=== PATIENT | female | born 1945 | race Caucasian/White ===

== ENCOUNTER 2019-06-05 12:04 | Outpatient (CLI) | payer MEDICARE, BC, SELFPAY ==
--- NOTE | 2019-06-10 23:40 | WPDPFTINT ---
PFT Interpretation PFT Interpretation: DOS:06/05/2019 REQUESTING: Dr. Plata REASON FOR TESTING: shortness of breath, elevated diaphragm PULMONARY FUNCTION TESTS Spirometry: FEV1 75%, 1.23 L. FVC 70% mildly decreased. FEV1% normal 75%. decreased FEF 25-75%, 45% predicted with 41% increase with bronchodilator. Lung volumes: TLC normal 100%. Slow vital capacity is 81%, which is normal and higher than the forced vital capacity 70%. This indicates dynamic air trapping. Residual volume mildly increased 129% consistent with air trapping. Airway resistance mildly increased 160%. Diffusion: DLCO is 85% normal. Flow volume loop: Normal IMPRESSION: Mild obstructive ventilatory impairment with dynamic air trapping, severe small airways obstruction with good response to bronchodilator, mild air trapping, mild increase in airway resistance. Ashley Plata MD
--- NOTE | 2019-06-10 23:47 | WPDSIXMINUTE ---
Six Minute Walk Six Minute Walk: DATE OF SERVICE: 06/05/2019 REQUESTING: Dr. Plata REASON FOR TESTING: dyspnea on exertion, elevated diaphragm SIX MINUTE WALK this test was conducted per ATS guidelines. Initial saturation 94% pulse 76. The patient walked for 6 minutes without stopping using her walker. She desaturated to 86% for 30 seconds. She has saturation documented 86% to 88% for less than 2 minutes. While she was being tested, the wrist monitor did not show sustained hypoxemia, so no supplemental oxygen was started. There was a 20 second episode during which time the monitor did not record the saturation. distance walked was 1150 feet, 350 meters. IMPRESSION: Mild desaturation to 86% for 30 seconds, with desaturation 88% and below for less than 90 seconds. No supplemental oxygen is indicated at this time as anatoly hypoxemia was not sustained for 2 minutes. Distance walked is adequate for age. Ashley Plata MD
== END 2019-06-05 12:05 | disposition home or self-care (01) ==
PROVIDERS: PCP Internal Medicine; Visit Provider Internal Medicine Critical Care Medicine
DX: J98.6 Disorders of diaphragm (principal); R06.02 Shortness of breath
CPT/HCPCS: 94060; 94375; 94618; 94729

== ENCOUNTER 2019-06-15 09:54 | Outpatient (CLI) | payer MEDICARE, BC, SELFPAY ==
--- NOTE | ~2019-06-15 | US_ITS ---
EXAMINATION: 1. US FNA additional 2. US FNA w image guidance DATE: 06/15/2019 11:33 INDICATION: Multinodular goiter. TECHNIQUE: The procedure and its benefits, risks, and benefits were discussed with the patient. Risks specifical ly discussed included bleeding. The patient verbalized understanding of the risks and agreed to proce ed. The neck was prepped and draped in the usual sterile manner. 1% lidocaine was used for local ane sthesia. Five passes were made with a 25G needle into the lesion in superior right thyroid lobe. Ap propriate needle location was documented with continuous sonographic guidance. 5 passes were made with a 25-gauge needle into the lesion in inferior right thyroid lobe. Appropriate needle location was documented with continuous sonographic guidance. There were no immediate complic ations. The patient understood to call the ordering physician for results after a week and a half and verbalized that understanding. FINDINGS: Grayscale ultrasound images demonstrate needles advanced into a 1.8 cm nodule in superior right thyro id lobe for biopsy. Grayscale ultrasound images demonstrate needles advanced into a 1.7 cm nodule in inferior right thyroid lobe for biopsy. IMPRESSION: 1. Ultrasound-guided fine needle aspiration of a nodule in superior right thyroid lobe. 2. Ultrasound-guided fine-needle aspiration of a nodule in inferior right thyroid lobe. Reviewed, dictated and finalized at location A. WORKER IMPRESSION: 1. Ultrasound-guided fine needle aspiration of a nodule in superior right thyr oid lobe. 2. Ultrasound-guided fine-needle aspiration of a nodule in inferior right thyro id lobe.
== END 2019-06-15 09:55 | disposition home or self-care (01) ==
LOC: ANHIMG 09:58
PROVIDERS: PCP Internal Medicine; Visit Provider Internal Medicine
DX: E04.2 Nontoxic multinodular goiter (principal)
CPT/HCPCS: 10005; 10006; 88108; 88173; 88305

== ENCOUNTER 2020-02-29 09:51 | Outpatient (CLI) | payer MEDICARE, BC, SELFPAY ==
--- NOTE | ~2020-02-29 | DEXA_ITS ---
Bone Density Report Name: Beena Ortiz Age: 74 Sex: Female Ethnicity: White Date of : 1945 Indication: osteopenia; height loss; prior fracture; asthma or emphysema; hysterectomy; Referring Provider: Ugo, Allie Dominguez Study: Bone densitometry was performed. Exam Date: February 29, 2020 Accession number: [id number] There is hypertrophic degenerative change of the lumbar spine, which results in higher than expected spine bone mineral density measurements. These spine BMD and T score and Z score measurements are not reflective of the patient's true general bone mineral density. Bone Density: Region BMD T-score Z-score Classification AP Spine (L3, L4) 1.003 -0.9 1.5 Normal Femoral Neck (Left) 0.696 -1.4 0.6 Osteopenia Total Hip (Left) 0.797 -1.2 0.5 Osteopenia Total Hip Bilateral Avg 0.799 -1.2 0.5 Osteopenia Femoral Neck (Right) 0.629 -2.0 0.0 Osteopenia Total Hip (Right) 0.799 -1.2 0.5 Osteopenia World Health Organization criteria for BMD impression classify patients as: Normal (T-score at or above -1.0), Osteopenia (T-score between -1.0 and -2.5), or Osteoporosis (T-score at or below -2.5). 10-year Fracture Risk(1): Major Osteoporotic Fracture 17% Hip Fracture 3.4% Reported Risk Factors: [place] (), Neck BMD=0.629, BMI=34.6, previous fracture (1) FRAX(R) Version 3.08. Fracture probability calculated for an untreated patient. Fracture probability may be lower if the patient has received treatment. Previous Exams: Region Exam Age BMD T-score BMD Change BMD Change Date g/cm2 vs Baseline vs Previous Total Hip(Left) 02/29/2020 74 0.797 -1.2 -0.090(-10.1%) -0.005(-0.6%) 01/21/2016 70 0.802 -1.1 -0.085(-9.6%)# -0.085(-9.6%)# 08/10/2012 66 0.887 -0.5 Total Hip(Right) 02/29/2020 74 0.799 -1.2 -0.103(-11.5%) 0.015(1.9%) 01/21/2016 70 0.784 -1.3 -0.118(-13.1%) -0.118(-13.1%) 08/10/2012 66 0.902 -0.3 *Denotes significance at 95% confidence level, LSC for Total Hip = 0.027 g/cm2 Clinical Information Provided by Patient: Has had a low trauma fracture Has used the following medications: Calcium Has the following medical conditions: Asthma or Emphysema, Hysterectomy Patient maximum height was 62.5 Menopause Age: 35 No regular weight bearing exercise Drinks caffeinated beverages Onset of menses at age 13 Number of children 0 Impression: The patient has low bone mass, based on the Right Femoral Neck T-score. The patient has an estimated te
--- NOTE | ~2020-02-29 | MM_ITS ---
EXAMINATION: MM screening edmond BI w neal HISTORY: Screening mammogram TECHNIQUE: Craniocaudal and mediolateral oblique 3-D tomosynthesis images were obtained and synthetic 2-D images were generated. CAD analysis was submitted and interpreted. COMPARISON: 08/10/2012, 03/02/2011 bilateral digital screening mammogram examinations BREAST PARENCHYMAL COMPOSITION: There are scattered areas of fibroglandular density. FINDINGS: Scattered bilateral benign calcifications are again noted. There is no evidence of suspicio us mass, calcification, or architectural distortion to suggest malignancy in either breast. There has been no suspicious interval change. IMPRESSION: 1. No mammographic evidence of malignancy. 2. Recommend routine screening mammography in one year. BI-RADS Category 2: Benign finding(s). Reviewed, dictated and finalized at location A.
== END 2020-02-29 09:52 | disposition home or self-care (01) ==
LOC: ANHIMG 09:59
PROVIDERS: PCP Internal Medicine; Visit Provider Internal Medicine
DX: Z12.31 Encounter for screening mammogram for malignant neoplasm of breast (principal); Z78.0 Asymptomatic menopausal state; M85.852 Other specified disorders of bone density and structure, left thigh; M85.851 Other specified disorders of bone density and structure, right thigh
CPT/HCPCS: 77063; 77067; 77080

== ENCOUNTER 2020-08-05 15:54 | Outpatient (CLI) | payer MEDICARE, BC, SELFPAY ==
--- NOTE | ~2020-08-05 | US_ITS ---
EXAMINATION: US thyroid DATE: 08/05/2020 16:34 INDICATION: Multinodular goiter. TECHNIQUE: Multiple ultrasound images of the thyroid were obtained. COMPARISON: Ultrasound 05/30/2019 FINDINGS: The right thyroid lobe measures 3.7 x 2.0 x 2.1 cm. The left thyroid lobe measures 3.9 x 1.2 x 1.2 c m. In the right thyroid lobe, there is a 16 mm solid, hypoechoic, tcegn-atqg-gqtp nodule with smooth margin without echogenic foci (TI-RADS TR4), stable from 06/15/19 when biopsy was benign. In the right thyroid lobe, there is a 19 mm solid, hypoechoic, ugysuw-ghbn-nyax nodule with smooth margin without echogenic foci (TR5), stable from 06/15/19 when biopsy was benign. There are multiple subcentimeter no dules in the thyroid. IMPRESSION: 1. Stable multinodular goiter, likely not clinically significant. Reviewed, dictated and finalized at location A.
== END 2020-08-05 15:55 | disposition home or self-care (01) ==
PROVIDERS: PCP Internal Medicine; Visit Provider Internal Medicine
DX: E04.2 Nontoxic multinodular goiter (principal)
CPT/HCPCS: 76536

== ENCOUNTER → 2020-08-18 02:41 | Outpatient (CLI) | payer MEDICARE, BC, SELFPAY ==
[2020-08-18 19:42] LABS: SARS-CoV-2 RNA PCR Negative
== END ==
PROVIDERS: PCP Internal Medicine; Visit Provider Internal Medicine Gastroenterology
DX: Z01.812 Encounter for preprocedural laboratory examination (principal); Z20.822 Contact with and (suspected) exposure to COVID-19
CPT/HCPCS: C9803; U0003; U0005

== ENCOUNTER 2020-08-21 01:17 | Day surgery (SDC) | payer MEDICARE, BC, SELFPAY ==
[2020-08-11 09:15] VITALS: BMI 35.1
[2020-08-21] MEDS: LACTATED RINGERS 1,000 ML 150 ML IV CONT (07:14)
[2020-08-21 07:25] VITALS: BP 143/75; PULSE 84; RESP 20; TEMP 36.4; O2SAT 98
[2020-08-21 07:25] LABS: Glucose Point of Care 103 (65-105)
--- NOTE | 2020-08-21 07:48 | PM.HPGS ---
History of Present Illness History of Present Illness Consent: Risks, benefits, and alternatives have been discussed and questions answered. Patient agrees to proceed with procedure. Chief complaint: esophageal stricture Narrative: Beena Ortiz is a 75 year old female Who is having dysphagia. Sometimes she will regurgitate pills that she has swallowed or liquid that she has drank. Food seems to go down but occasion she has and sedation that it is stuck in her lower chest. She had a hiatal hernia repair 3 years ago. Review of Systems Review of Systems: All systems reviewed & are unremarkable except as noted in HPI and below PMFSH Past Medical History Medical History (Updated 08/21/20 @ 07:49 by Keshawn Luna MD) Diabetes High cholesterol HTN (hypertension) Surgical History Surgical History H/O hernia repair H/O: hysterectomy History of laparoscopic appendectomy Family History Family History Mother Family history of coronary artery disease Family history of lung disease Sibling Family history of cardiovascular disease Family history of chronic obstructive pulmonary disease Family history of congestive heart failure Alcoholism Hypertension Depression Heart disease Father Family history of chronic obstructive pulmonary disease Social History Social History Smoking packs per day: 1 Smoking cigarettes per day: 20.0 Years smoked: 15 Smoking pack-years: 15.00 Smoking status: Former smoker Tobacco type: cigarettes Second hand tobacco smoke exposure: No Smoking end date: 05/09/79 Alcohol intake: current Drinks per week: 7 Alcohol use details: WINE Substance use: never Substance use type: does not use Living arrangements: with family Spiritual care concerns: No Meds Home Medications and Allergies Home Medications Medication Instructions Recorded Confirmed Type atorvastatin 20 mg tablet 20 mg PO DAILY 04/30/19 08/21/20 History carboxymethylcellulose sodium 0.5 1 drop EACH EYE BID PRN 04/30/19 08/21/20 History % eye drops cyclosporine 0.05 % eye drops in a 1 drop EACH EYE Q12H 04/30/19 08/21/20 History dropperette fluoxetine 20 mg capsule 20 mg PO DAILY 04/30/19 08/21/20 History lisinopril 5 mg tablet 5 mg PO DAILY 04/30/19 08/21/20 History metformin 500 mg tablet 500 mg PO DAILY 04/30/19 08/21/20 History albuterol sulfate 90 mcg/actuation 1 inhalation INHALATION Q4-6H PRN 02/11/20 08/21/20 Rx aerosol inhaler #8.5 gm Nature Made Iron 34 mg PO DAILY 08/11/20 08/21/20 History calcium-vitamin D3-vitamin K 2 tablet PO DAILY 08/11/20 08/21/20 History [Viactiv] cholecalciferol (vitamin D3) 1,000 unit PO DAILY 08/11/20 08/21/20 History [Vitamin D3] lifitegrast [Xiidra] 1 drp EACH EYE BID 08/11/20 08/21/20 History pantoprazole 40 mg PO DAILY 08/11/20 08/21/20 History vit C-E-zinc lr-ebac-kjd-zeax 1 cap PO BID 08/11/20 08/21/20 History [ICaps AREDS2] Allergies Allergy/AdvReac Type Severity Reaction Status Date / Time No Known Allergies Allergy Verified 08/21/20 07:11 Vital Signs Vital Signs - 24 hr 08/21/20 07:25 Temperature 36.4 C L Pulse Rate 84 Respiratory Rate 20 Blood Pressure 143/75 H Pulse Oximetry 98 Exam Const: General: alert Orientation/consciousness: patient oriented x3 Resp: Auscultation: clear to auscultation bilaterally Cardio: Rhythm: regular rhythm GI: GI Palp: Yes Soft to palpation and No Tenderness to palpation present (GI) Neuro: General: patient oriented x3 Assessment and Plan Assessment and plan (1) Dysphagia: Code(s): R13.10 - Dysphagia, unspecified Status: Acute Assessment and Plan: EGD with possible biopsy or dilatation or cautery.
--- NOTE | 2020-08-21 08:11 | WPDANESEPPF ---
Anes - Initial Pre Proc Eval Procedure: Operation Date: 08/21/20 08:30 Proposed Procedures p Esophagogastroduodenoscopy - Keshawn Luna MD Date/Time: 08/21/20 08:11 Surgeon: Keshawn Luna MD Pre Op Diagnosis: esophageal stricture Patient Data Age: 75 Gender: F Height: 5 ft Weight: 79.5 kg Last Vital Signs Temp 97.5 F L 08/21/20 07:25 Pulse 84 08/21/20 07:25 Resp 20 08/21/20 07:25 BP 143/75 H 08/21/20 07:25 Pulse Ox 98 08/21/20 07:25 Allergies Allergy/AdvReac Type Severity Reaction Status Date / Time No Known Allergies Allergy Verified 08/21/20 07:11 Home Medications Medication Instructions Recorded Confirmed Type atorvastatin 20 mg tablet 20 mg PO DAILY 04/30/19 08/21/20 History carboxymethylcellulose sodium 0.5 1 drop EACH EYE BID PRN 04/30/19 08/21/20 History % eye drops cyclosporine 0.05 % eye drops in a 1 drop EACH EYE Q12H 04/30/19 08/21/20 History dropperette fluoxetine 20 mg capsule 20 mg PO DAILY 04/30/19 08/21/20 History lisinopril 5 mg tablet 5 mg PO DAILY 04/30/19 08/21/20 History metformin 500 mg tablet 500 mg PO DAILY 04/30/19 08/21/20 History albuterol sulfate 90 mcg/actuation 1 inhalation INHALATION Q4-6H PRN 02/11/20 08/21/20 Rx aerosol inhaler #8.5 gm Nature Made Iron 34 mg PO DAILY 08/11/20 08/21/20 History calcium-vitamin D3-vitamin K 2 tablet PO DAILY 08/11/20 08/21/20 History [Viactiv] cholecalciferol (vitamin D3) 1,000 unit PO DAILY 08/11/20 08/21/20 History [Vitamin D3] lifitegrast [Xiidra] 1 drp EACH EYE BID 08/11/20 08/21/20 History pantoprazole 40 mg PO DAILY 08/11/20 08/21/20 History vit C-E-zinc oi-sshq-nhi-zeax 1 cap PO BID 08/11/20 08/21/20 History [ICaps AREDS2] Laboratory Tests 08/21/20 07:10 POC Capillary Glucose 103 mg/dl mg/dl (65-105) Patient hx anesthesia problems: none Family hx anesthesia problems: none PMFSH Past Medical History Medical History (Updated 08/21/20 @ 07:49 by Keshawn Luna MD) Diabetes High cholesterol HTN (hypertension) Surgical History Surgical History H/O hernia repair H/O: hysterectomy History of laparoscopic appendectomy Family History Family History Mother Family history of coronary artery disease Family history of lung disease Sibling Family history of cardiovascular disease Family history of chronic obstructive pulmonary disease Family history of congestive heart failure Alcoholism Hypertension Depression Heart disease Father Family history of chronic obstructive pulmonary disease Social History Social History Smoking packs per day: 1 Smoking cigarettes per day: 20.0 Years smoked: 15 Smoking pack-years: 15.00 Smoking status: Former smoker Tobacco type: cigarettes Second hand tobacco smoke exposure: No Smoking end date: 05/09/79 Alcohol intake: current Drinks per week: 7 Alcohol use details: WINE Substance use: never Substance use type: does not use Living arrangements: with family Spiritual care concerns: No Anes - Eval Final PreProcedure Day of Procedure 08/21/20 08:11 Patient weight: overweight Heart: regular rate and rhythm Lungs: clear to auscultation Airway: Mallampati scale class III Neurological: alert and oriented Last oral intake: >/= 8 hours ASA classification: III Emergent: no Anesthetic plan: proceed Anesthesia type and monitoring: general GIVS and standard monitoring Informed Consent: The patient's anesthetic plan and its attendant risks and benefits were discussed with the patient/family/POA. Questions were solicited and answers provided to the satisfaction of the patient/family/POA.
[2020-08-21 08:44] VITALS: BP 99/62; PULSE 85; RESP 19; O2SAT 99
[2020-08-21 08:54] VITALS: BP 117/69; PULSE 79; RESP 25; O2SAT 100
[2020-08-21 09:04] VITALS: BP 116/73; PULSE 77; RESP 16; O2SAT 96
== END 2020-08-21 09:15 | disposition home or self-care (01) ==
PROVIDERS: PCP Internal Medicine; Visit Provider Internal Medicine Gastroenterology
PROC: 0DJ08ZZ Inspection of Upper Intestinal Tract, Via Natural or Artificial Opening Endoscopic (ICD-10-PCS; CPT 43235; principal; 2020-08-21 08:30)
DX: K22.2 Esophageal obstruction (principal); K44.9 Diaphragmatic hernia without obstruction or gangrene; I10 Essential (primary) hypertension; E78.00 Pure hypercholesterolemia, unspecified; E11.9 Type 2 diabetes mellitus without complications; Z87.891 Personal history of nicotine dependence; Z79.84 Long term (current) use of oral hypoglycemic drugs; Z79.51 Long term (current) use of inhaled steroids
CPT/HCPCS: 43249; 82948; 88305; C1726; J2704; J7120

== ENCOUNTER 2021-04-17 19:28 | Emergency (ER) | payer MEDICARE, BC, SELFPAY ==
[2021-04-17 19:30] VITALS: BP 160/94; PULSE 83; RESP 18; TEMP 36.6; O2SAT 99
--- NOTE | 2021-04-17 21:10 | PC.NURSE ---
Charge nurse to wr to update pts on delay.
--- NOTE | 2021-04-17 21:28 | PC.NURSE ---
Pt ambulatory out of dept to awaiting family vehicle. left with steady even, unassisted gait.
== END 2021-04-18 04:51 | disposition left against medical advice (07) ==
PROVIDERS: PCP Internal Medicine
DX: R10.31 Right lower quadrant pain (principal)
CPT/HCPCS: 99199

== ENCOUNTER 2021-05-20 15:17 | Outpatient (CLI) | payer MEDICARE, BC, SELFPAY ==
--- NOTE | ~2021-05-20 | MM_ITS ---
EXAMINATION: MM screening edmond BI w neal HISTORY: Screening TECHNIQUE: Craniocaudal and mediolateral oblique 3-D tomosynthesis images were obtained and synthetic 2-D images were generated. CAD analysis was submitted and interpreted. COMPARISON: Comparison to multiple prior studies sequentially, with oldest reviewed study dated 08/2012. BREAST PARENCHYMAL COMPOSITION: There are scattered areas of fibroglandular density. FINDINGS: There is no evidence of suspicious mass, calcification, or architectural distortion to sugg est malignancy in either breast. There has been no suspicious interval change. IMPRESSION: 1. No mammographic evidence of malignancy. 2. Recommend routine screening mammography in one year. BI-RADS Category 1: Negative Reviewed, dictated and finalized at location A. PAPER INSERTER
== END 2021-05-20 15:18 | disposition home or self-care (01) ==
LOC: ANHIMG 15:20
PROVIDERS: PCP Internal Medicine; Visit Provider Internal Medicine
DX: Z12.31 Encounter for screening mammogram for malignant neoplasm of breast (principal)
CPT/HCPCS: 77063; 77067

== ENCOUNTER 2021-09-20 13:17 | Outpatient (CLI) | payer MEDICARE, BC, SELFPAY ==
--- NOTE | ~2021-09-20 | XR_ITS ---
XR knee LT 2V DATE: 09/20/2021 13:37 INDICATION: Osteoarthritis TECHNIQUE: Standing AP and lateral views COMPARISON: None FINDINGS: No fracture or dislocation or joint effusion. No periosteal reaction or bone destruction. N o radiopaque intra-articular loose body or chondral calcinosis. Joint spaces are relatively preserved . IMPRESSION: No significant abnormality Reviewed, dictated and finalized at location A. IMPRESSION: No significant abnormality
--- NOTE | ~2021-09-20 | MR_ITS ---
EXAMINATION: MR lumbar spine wo con DATE: 09/20/2021 14:13 INDICATION: lumbar spndylosis . TECHNIQUE: Magnetic resonance imaging (MRI) of the lumbar spine was performed without intravenous con trast. Sequences included sagittal T2-weighted FSE, sagittal T2-weighted FS FSE, sagittal T1-weighted FSE, and axial T2-weighted FSE. COMPARISON: None FINDINGS: The last fully formed and hydrated disc is designated L5-S1. The marrow signal is benign. 5 mm anterolisthesis of L5 on S1. Hemangioma at T12. Lumbar scoliosis. Conus terminates at L2. 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 Right parapelvic cyst. The following disc levels are specifically discussed : T10-11: 5 mm central protrusion which contacts the distal cord. There is mild facet joint osteoarthri tis. There is moderate left and mild right neural foraminal stenosis. There is mild central canal tucker nosis. T11-12: The disc does not extend beyond the endplate margin. There is mild facet joint osteoarthritis . There is no neural foraminal stenosis. There is no central canal stenosis. T12-L1: The disc does not extend beyond the endplate margin. There is mild facet joint osteoarthritis . There is no neural foraminal stenosis. There is no central canal stenosis. L1-L2: Severe diffuse bulge. There is moderate facet joint osteoarthritis. There is moderate right an d mild left neural foraminal stenosis. There is moderate central canal stenosis. L2-L3: Severe diffuse bulge There is moderate facet joint osteoarthritis. There is severe right and m oderate left neural foraminal stenosis. There is no central canal stenosis. L3-L4: Severe disc bulge. There is severe facet joint osteoarthritis. There is moderate left and sara re right neural foraminal stenosis. There is no central canal stenosis. L4-L5: Severe diffuse bulge. There is severe facet joint osteoarthritis. There is moderate bilateral neural foraminal stenosis. There is no central canal stenosis. L5-S1: Severe diffuse bulge with a left lateral predominance. There is severe facet joint osteoarthri tis. There is severe left and moderate right neural foraminal stenosis. There is no central canal tucker nosis. IMPRESSION: 1. Multilevel severe degenerative disc disease and facet arthropathy. 2. Multilevel moderate and severe neural foraminal narrowing. 3. Moderate central canal stenosis at L1-2. 4. Central T10-11 disc protrusion at contacts the distal cord. 5. Grade 1 degenerative anterolisthesis of L5 on S1. Reviewed, dictated and finalized at location K.
--- NOTE | ~2021-09-20 | XR_ITS ---
XR knee RT 2V DATE: 09/20/2021 13:37 INDICATION: Osteoarthritis TECHNIQUE: Standing AP and lateral views COMPARISON: 02/15/2019 right knee FINDINGS: No fracture or dislocation or joint effusion. No radiopaque intra-articular loose body or c hondral calcinosis. Joint spaces are relatively preserved. No periosteal reaction or bone destruction . IMPRESSION: No significant abnormality Reviewed, dictated and finalized at location A. IMPRESSION: No significant abnormality
== END 2021-09-20 13:18 | disposition home or self-care (01) ==
PROVIDERS: PCP Internal Medicine; Visit Provider Physical Medicine & Rehabilitation
DX: M47.896 Other spondylosis, lumbar region (principal); M17.9 Osteoarthritis of knee, unspecified; M51.36 Other intervertebral disc degeneration, lumbar region
CPT/HCPCS: 72148; 73560

== ENCOUNTER 2021-09-29 10:48 | Outpatient (CLI) | payer MEDICARE, BC, SELFPAY ==
--- NOTE | ~2021-09-29 | US_ITS ---
EXAMINATION: US thyroid DATE: 09/29/2021 11:44 INDICATION: Multinodular goiter. TECHNIQUE: Multiple ultrasound images of the thyroid were obtained. COMPARISON: Ultrasound 08/05/2020, 06/15/2019, 05/30/2019, 11/26/2008 FINDINGS: In the right thyroid lobe, there is a 16 mm predominantly solid, hypoechoic, halmh-tiup-cudr nodule w ith ill-defined margin without echogenic foci (TI-RADS TR4), stable from 06/15/19 when biopsy was benig n. In the right thyroid nodule lobe, there is a 16 mm mixed cystic and solid, hypoechoic, wider than tall nodule with smooth margin without echogenic foci (TR3). In the right thyroid lobe, there is a 20 mm solid, isoechoic, sjcoa-ovqd-jvmg nodule with ill-defined margin without echogenic foci (TR3). Th ariel two nodules were previously measured as a single nodule and demonstrated benign pathology at biop sy on 06/15/19. In the left thyroid lobe, there is a 12 mm solid, hypoechoic, wider than tall nodule wi th lobulated margin without echogenic foci (TR4), stable from 05/30/19. IMPRESSION: 1. Stable multinodular goiter, likely not clinically significant. Reviewed, dictated and finalized at location A.
== END 2021-09-29 10:49 | disposition home or self-care (01) ==
PROVIDERS: PCP Internal Medicine; Visit Provider Internal Medicine
DX: E04.2 Nontoxic multinodular goiter (principal)
CPT/HCPCS: 76536

== ENCOUNTER 2022-04-20 10:00 | Emergency (ER) | payer MEDICARE, BC, SELFPAY ==
[2022-04-20 10:25] VITALS: BP 130/67; PULSE 74; RESP 18; TEMP 37; O2SAT 98
--- NOTE | 2022-04-20 12:12 | ED.ANIMALBIT ---
HPI - Animal Bite General Chief Complaint: Animal Bite Stated Complaint: bit by cat 1 week ago Time Seen by Provider: 04/20/22 11:13 Source: patient Mode of arrival: ambulatory Limitations: no limitations History of Present Illness HPI narrative: This is a 76 year old female that presents to the ER after a cat bite 6 days ago. Reports there is a stray cat that roams around the neighborhood that she sees from time to time. Reports he came close to her last Tuesday and she attempted to pet him. Reports he bit her on the right hand. She was seen at urgent care and prescribed antibiotics and given a tetanus vaccine. Reports she was concerned that maybe she should have gotten a rabies vaccine which prompted her to be seen again. Denies fever, erythema or abnormal drainage from the wound. Related Data Home Medications Medication Instructions Recorded Confirmed atorvastatin 20 mg tablet 20 mg PO DAILY 04/30/19 01/20/22 carboxymethylcellulose sodium 0.5 1 drop ophthalmic (eye) BID PRN 04/30/19 01/20/22 % eye drops (Refresh Tears) Dry Eye(S) cyclosporine 0.05 % eye drops in a 1 drop ophthalmic (eye) Q12H 04/30/19 01/20/22 dropperette (Restasis) fluoxetine 20 mg capsule 20 mg PO DAILY 04/30/19 01/20/22 lisinopril 5 mg tablet 5 mg PO DAILY 04/30/19 01/20/22 metformin 500 mg tablet 500 mg PO DAILY 04/30/19 01/20/22 Nature Made Iron 34 mg PO DAILY 08/11/20 01/20/22 calcium 650 mg-vitamin D3 12.5 2 tablet PO DAILY 08/11/20 01/20/22 mcg-vitamin K 40 mcg chewable tablet (Viactiv) cholecalciferol (vitamin D3) 25 1,000 unit PO DAILY 08/11/20 01/20/22 mcg (1,000 unit) tablet (Vitamin D3) lifitegrast 5 % eye drops in a 1 drp EACH EYE BID 08/11/20 01/20/22 dropperette (Xiidra) pantoprazole 40 mg tablet,delayed 40 mg PO DAILY 08/11/20 01/20/22 release vit C 250 mg-vit E 200 unit-zinc 1 cap PO BID 08/11/20 01/20/22 ox 12.5 nb-exarod-avqeol-zeax capsule (ICaps AREDS2) Allergies Allergy/AdvReac Type Severity Reaction Status Date / Time No Known Allergies Allergy Verified 01/20/22 14:05 Review of Systems Review of Systems: CONSTITUTIONAL: Denies fever SKIN: Reports animal bite NEUROLOGIC: Denies numbness, or weakness. All systems reviewed & are unremarkable except as noted in HPI and below PMFSH Past Medical History Medical History (Updated 04/20/22 @ 12:30 by Yakelin Jarvis PA-C) Diabetes High cholesterol HTN (hypertension) Surgical History Surgical History H/O hernia repair H/O: hysterectomy History of laparoscopic appendectomy Family History Family History Mother Family history of coronary artery disease Family history of lung disease Sibling Family history of cardiovascular disease Family history of chronic obstructive pulmonary disease Family history of congestive heart failure Alcoholism Hypertension Depression Heart disease Father Family history of chronic obstructive pulmonary disease Social History Social History Smoking packs per day: 1 Smoking cigarettes per day: 20.0 Years smoked: 15 Smoking pack-years: 15.00 Smoking status: Former smoker Tobacco type: cigarettes Second hand tobacco smoke exposure: No Smoking end date: 05/09/79 Alcohol intake: current Drinks per week: 7 Alcohol use details: WINE Substance use: never Substance use type: does not use Spiritual care concerns: No Exam Narrative: GENERAL: Well-appearing, well-nourished, and in no acute distress. HEAD: Normocephalic, atraumatic. EYES: EOMI. EXTREMITIES: Normal range of motion. No edema, erythema or warmth. Healing wound to the right hand palmar surface SKIN: Warm, dry, no rash. NEURO: No focal deficits. Alert and oriented x3. PSYCH: Normal mood and affect Course Consultations Consultation #1: Linda
== END 2022-04-20 12:40 | disposition home or self-care (01) ==
PROVIDERS: Emergency Provider Physician Assistant; PCP Internal Medicine
DX: S60.571A Other superficial bite of hand of right hand, initial encounter (principal); Z29.14 Encounter for prophylactic rabies immune globulin; W55.01XA Bitten by cat, initial encounter
CPT/HCPCS: 99282

== ENCOUNTER 2022-11-03 00:49 | Day surgery (SDC) | payer MEDICARE, BC, SELFPAY ==
[2022-10-21 09:41] VITALS: BMI 35.4
--- NOTE | 2022-11-02 16:39 | PM.HPGS ---
History of Present Illness History of Present Illness Consent: Risks, benefits, and alternatives have been discussed and questions answered. Patient agrees to proceed with procedure. Chief complaint: hx colon polyps Narrative: Beena Ortiz is a 77 year old female with history of polyps. She to had no polyps at the time of her last colonoscopy 5 years ago. She also has had a very large paraesophageal hiatal hernia which was repaired 3 years ago. Review of Systems Review of Systems: All systems reviewed & are unremarkable except as noted in HPI and below PMFSH Past Medical History Medical History Diabetes High cholesterol HTN (hypertension) Surgical History Surgical History H/O hernia repair H/O: hysterectomy History of laparoscopic appendectomy Family History Family History Mother Family history of coronary artery disease Family history of lung disease Sibling Family history of cardiovascular disease Family history of chronic obstructive pulmonary disease Family history of congestive heart failure Alcoholism Hypertension Depression Heart disease Father Family history of chronic obstructive pulmonary disease Social History Social History Smoking packs per day: 1 Smoking cigarettes per day: 20.0 Years smoked: 15 Smoking pack-years: 15.00 Smoking status: Former smoker Tobacco type: cigarettes Second hand tobacco smoke exposure: No Smoking end date: 05/09/79 Alcohol intake: current Drinks per week: 7 Alcohol use details: WINE Substance use: never Substance use type: does not use Lack of Transportation: No Lack of Food: Never True Current Housing: I Have Housing Concerned About Future Housing: No Difficulty Paying Gas/Electric Bills: No Difficulty Paying for Meds: No Currently Unemployed: No Education: High School Diploma/GED Difficulty w/ Childcare or Family Care: No Living arrangements: with family Spiritual care concerns: No Meds Home Medications and Allergies Home Medications Medication Instructions Recorded Confirmed Type atorvastatin 20 mg tablet 20 mg PO DAILY 04/30/19 10/21/22 History carboxymethylcellulose sodium 0.5 1 drop ophthalmic (eye) BID PRN 04/30/19 10/21/22 History % eye drops (Refresh Tears) Dry Eye(S) cyclosporine 0.05 % eye drops in a 1 drop ophthalmic (eye) Q12H 04/30/19 10/21/22 History dropperette (Restasis) fluoxetine 20 mg capsule 20 mg PO DAILY 04/30/19 10/21/22 History lisinopril 5 mg tablet 5 mg PO DAILY 04/30/19 10/21/22 History metformin 500 mg tablet 500 mg PO DAILY 04/30/19 10/21/22 History Nature Made Iron 34 mg PO DAILY 08/11/20 10/21/22 History cholecalciferol (vitamin D3) 25 1,000 unit PO DAILY 08/11/20 10/21/22 History mcg (1,000 unit) tablet (Vitamin D3) lifitegrast 5 % eye drops in a 1 drp EACH EYE BID 08/11/20 10/21/22 History dropperette (Xiidra) pantoprazole 40 mg tablet,delayed 40 mg PO DAILY 08/11/20 10/21/22 History release vit C 250 mg-vit E 200 unit-zinc 1 cap PO BID 08/11/20 10/21/22 History ox 12.5 my-zdubxk-ucqjad-zeax capsule (ICaps AREDS2) Ventolin HFA 90 mcg/actuation 1 - 2 inh inhalation Q4-6H PRN 01/20/22 10/21/22 Rx aerosol inhaler (albuterol sulfate) shortness of breath or wheezing #18 grams Trelegy Ellipta 100 mcg-62.5 1 inh inhalation DAILY #60 ea 06/15/22 10/21/22 Rx mcg-25 mcg powder for inhalation (qfyhrhcfoya-uupbwlgop-oozxsqyt) montelukast 10 mg tablet 10 mg PO QHS #30 tabs 07/21/22 10/21/22 Rx Allergies Allergy/AdvReac Type Severity Reaction Status Date / Time No Known Allergies Allergy Verified 11/03/22 10:58 Exam Const: General: alert Orientation/consciousness: patient oriented x3 Resp: Auscultation
[2022-11-03 10:59] VITALS: BP 130/72; PULSE 81; RESP 16; TEMP 36.4; O2SAT 98
[2022-11-03] MEDS: LACTATED RINGERS 1,000 ML 150 ML IV CONT (11:10)
[2022-11-03 11:17] LABS: Glucose Point of Care 82 mg/dl (65-105)
--- NOTE | 2022-11-03 11:26 | WPDANESEPPF ---
Anes - Initial Pre Proc Eval Procedure: Operation Date: 11/03/22 12:30 Proposed Procedures p Colonoscopy - Keshawn Luna MD Date/Time: 11/03/22 11:26 Surgeon: Keshawn Luna MD Pre Op Diagnosis: hx colon polyps Patient Data Age: 77 Gender: F Height: 1.5 m Weight: 79.4 kg Last Vital Signs Temp 97.5 F L 11/03/22 10:59 Pulse 81 11/03/22 10:59 Resp 16 11/03/22 10:59 BP 130/72 11/03/22 10:59 Pulse Ox 98 11/03/22 10:59 O2 Del Method Room Air 11/03/22 10:59 Allergies Allergy/AdvReac Type Severity Reaction Status Date / Time No Known Allergies Allergy Verified 11/03/22 10:58 Home Medications Medication Instructions Recorded Confirmed Type atorvastatin 20 mg tablet 20 mg PO DAILY 04/30/19 10/21/22 History carboxymethylcellulose sodium 0.5 1 drop ophthalmic (eye) BID PRN 04/30/19 10/21/22 History % eye drops (Refresh Tears) Dry Eye(S) cyclosporine 0.05 % eye drops in a 1 drop ophthalmic (eye) Q12H 04/30/19 10/21/22 History dropperette (Restasis) fluoxetine 20 mg capsule 20 mg PO DAILY 04/30/19 10/21/22 History lisinopril 5 mg tablet 5 mg PO DAILY 04/30/19 10/21/22 History metformin 500 mg tablet 500 mg PO DAILY 04/30/19 10/21/22 History Nature Made Iron 34 mg PO DAILY 08/11/20 10/21/22 History cholecalciferol (vitamin D3) 25 1,000 unit PO DAILY 08/11/20 10/21/22 History mcg (1,000 unit) tablet (Vitamin D3) lifitegrast 5 % eye drops in a 1 drp EACH EYE BID 08/11/20 10/21/22 History dropperette (Xiidra) pantoprazole 40 mg tablet,delayed 40 mg PO DAILY 08/11/20 10/21/22 History release vit C 250 mg-vit E 200 unit-zinc 1 cap PO BID 08/11/20 10/21/22 History ox 12.5 nt-jwcrmb-vtpalt-zeax capsule (ICaps AREDS2) Ventolin HFA 90 mcg/actuation 1 - 2 inh inhalation Q4-6H PRN 01/20/22 10/21/22 Rx aerosol inhaler (albuterol sulfate) shortness of breath or wheezing #18 grams Trelegy Ellipta 100 mcg-62.5 1 inh inhalation DAILY #60 ea 06/15/22 10/21/22 Rx mcg-25 mcg powder for inhalation (ppsomhowkcv-vyflkvckq-lmlwthma) montelukast 10 mg tablet 10 mg PO QHS #30 tabs 07/21/22 10/21/22 Rx Laboratory Tests 11/03/22 11:10 POC Capillary Glucose 82 mg/dl (65-105) Patient hx anesthesia problems: none Family hx anesthesia problems: none Results Review: All pre-operative results and documents have been reviewed as part of the pre-operative evaluation. [facility] Past Medical History Medical History Diabetes High cholesterol HTN (hypertension) Surgical History Surgical History H/O hernia repair H/O: hysterectomy History of laparoscopic appendectomy Family History Family History Mother Family history of coronary artery disease Family history of lung disease Sibling Family history of cardiovascular disease Family history of chronic obstructive pulmonary disease Family history of congestive heart failure Alcoholism Hypertension Depression Heart disease Father Family history of chronic obstructive pulmonary disease Social History Social History Smoking packs per day: 1 Smoking cigarettes per day: 20.0 Years smoked: 15 Smoking pack-years: 15.00 Smoking status: Former smoker Tobacco type: cigarettes Second hand tobacco smoke exposure: No Smoking end date: 05/09/79 Alcohol intake: current Drinks per week: 7 Alcohol use details: WINE Substance use: never Substance use type: does not use Lack of Transportation: No Lack of Food: Never True Current Housing: I Have Housing Concerned About Future Housing: No Difficulty Paying Gas/Electric Bills: No Difficulty Paying for Meds: No Currently Unemployed: No Education: High School Diploma/GED Difficulty w/ Childcare or Family
[2022-11-03] MEDS: SIMETHICONE ORAL SUSPENSION 20 MG/0.3 ML 30 ML BOTTLE 0.6 ML IRRIGATION (12:18)
[2022-11-03 12:27] VITALS: BP 105/73; PULSE 82; RESP 18; O2SAT 99
[2022-11-03 12:37] VITALS: BP 125/73; PULSE 80; RESP 20; O2SAT 99
[2022-11-03 12:49] VITALS: BP 120/78; PULSE 80; RESP 20; O2SAT 99
== END 2022-11-03 12:57 | disposition home or self-care (01) ==
PROVIDERS: PCP Internal Medicine; Visit Provider Internal Medicine Gastroenterology
PROC: 0DJD8ZZ Inspection of Lower Intestinal Tract, Via Natural or Artificial Opening Endoscopic (ICD-10-PCS; CPT 45378; principal; 2022-11-03 12:30)
DX: Z12.11 Encounter for screening for malignant neoplasm of colon (principal); K57.30 Diverticulosis of large intestine without perforation or abscess without bleeding; K62.1 Rectal polyp; I10 Essential (primary) hypertension; E11.9 Type 2 diabetes mellitus without complications; E78.00 Pure hypercholesterolemia, unspecified; Z87.891 Personal history of nicotine dependence; E66.9 Obesity, unspecified; Z68.35 Body mass index [BMI] 35.0-35.9, adult; Z79.84 Long term (current) use of oral hypoglycemic drugs; Z79.51 Long term (current) use of inhaled steroids
CPT/HCPCS: 45380; 82948; 88305; J2704; J7120

== ENCOUNTER 2022-11-04 15:04 | Outpatient (CLI) | payer MEDICARE, BC, SELFPAY ==
--- NOTE | ~2022-11-04 | MM_ITS ---
EXAMINATION: MM screening edmond BI w neal HISTORY: Screening mammogram TECHNIQUE: Craniocaudal and mediolateral oblique 3-D tomosynthesis images were obtained and synthetic 2-D images were generated. CAD analysis was submitted and interpreted. COMPARISON: 05/20/2021, 02/29/2020 bilateral screening mammogram examinations BREAST PARENCHYMAL COMPOSITION: There are scattered areas of fibroglandular density. FINDINGS: Scattered bilateral benign calcifications. There is no evidence of suspicious mass, calcifi cation, or architectural distortion to suggest malignancy in either breast. There has been no suspici ous interval change. IMPRESSION: 1. No mammographic evidence of malignancy. 2. Recommend routine screening mammography in one year. BI-RADS Category 2: Benign finding(s). Reviewed, dictated and finalized at location A.
== END 2022-11-04 15:05 | disposition home or self-care (01) ==
PROVIDERS: PCP Internal Medicine; Visit Provider Internal Medicine
DX: Z12.31 Encounter for screening mammogram for malignant neoplasm of breast (principal)
CPT/HCPCS: 77063; 77067

== ENCOUNTER 2023-04-25 10:43 | Outpatient (CLI) | payer MEDICARE, BC, SELFPAY ==
--- NOTE | 2023-04-25 11:04 | ECG_ITS ---
Measurements Intervals [place] Rate: 72 P: 39 CA: 161 QRS: -34 QRSD: 93 T: 4 QT: 358 QTc: 392 Interpretive Statements SINUS RHYTHM POSSIBLE LEFT ATRIAL ENLARGEMENT [-0.1mV P WAVE IN V1/V2] LOW-VOLTAGE QRS IN PRECORDIAL LEADS POSSIBLE ANTERIOR MYOCARDIAL INFARCTION , PROBABLY OLD [30 ms Q WAVE IN V3/V4, OR R < 0.2 mV IN V4] CANNOT RULE OUT iNFERIOR MYOCARDIAL INFARCTION , PROBABLY OLD [40+ ms Q WAVE AND/OR ST/T ABNORMALITY IN II/aVF] ABNORMAL ECG NO PREVIOUS ECG AVAILABLE FOR COMPARISON Electronically Signed On 04-25-2023 17:15:51 TECHNOLOGY OFFICER by Brayan Ochoa M.D.
[2023-04-25 11:20] LABS: Appearance Urine Cloudy (Clear); Bacteria Urine None Seen /hpf; Bilirubin Urine 1+ (Negative); Blood Urine Negative (Negative); Color Urine Dark Yellow (Yellow); Glucose Urine UA Negative (Negative); Ketones Urine Trace mg/dL (Negative); Leukocyte Esterase Ur Negative LEU/UL (Negative); Nitrate Urine Negative (Negative); Non Pathogenic Casts 0-2; Protein Urine Negative (Negative); RBC Urine 0-2 /hpf (0-2); Specific Grav Ur 1.026 (1.001-1.035); Squamous Epithelial Cell Urine Occasional /hpf (Few); Urobilinogen Urine 0.2 mg/dL (<2.0); WBC Urine 0-5 /hpf; pH Urine 5.5 (5.0-9.0)
[2023-04-25 11:29] LABS: Add Urine Microscopic? YES
== END 2023-04-25 10:44 | disposition home or self-care (01) ==
PROVIDERS: PCP Internal Medicine; Visit Provider Orthopaedic Surgery
DX: R94.31 Abnormal electrocardiogram [ECG] [EKG] (principal); R93.1 Abnormal findings on diagnostic imaging of heart and coronary circulation; I10 Essential (primary) hypertension; R39.9 Unspecified symptoms and signs involving the genitourinary system
CPT/HCPCS: 81001; 93005

== ENCOUNTER 2023-06-15 11:27 | Outpatient (CLI) | payer MEDICARE, BC, SELFPAY ==
--- NOTE | ~2023-06-15 | XR_ITS ---
EXAMINATION: XR lumbar spine 2-3V DATE: 06/15/2023 11:54 INDICATION: Acute right-sided low back pain. Right-sided sciatica. TECHNIQUE: 2 views of lumbar spine were obtained. COMPARISON: Lumbar spine radiographs 08/13/2013, lumbar spine MRI 09/20/2021 FINDINGS: There is 32 degrees levoscoliosis of lumbar spine. There is 3 mm anterolisthesis of L4 on L 5 and 8 mm anterolisthesis of L5 on S1. Vertebral body heights are normal. There is severely decrease d disc height from L1-L2 through L5-S1. There is multilevel severe facet joint osteoarthritis. Surgic al clips in the right upper quadrant are likely from cholecystectomy. IMPRESSION: 1. Severe lumbar spondylosis. 2. Lumbar levoscoliosis. Reviewed, dictated and finalized at location E. S PROMOTER
--- NOTE | ~2023-06-15 | XR_ITS ---
Left Hand Technique: PA, oblique, and lateral views were obtained. Clinical History: Pain Findings: No acute fracture or dislocation is seen. Osseous alignment is anatomic. There is mild to m oderate degenerative changes DIP joints. Probable prior trapezium resection. Soft tissues are unremar kable. Impression: Mild to moderate degenerative change in the DIP joints of the fingers. Reviewed, dictated and finalized at location . [employer] Impression: Mild to moderate degenerative change in the DIP joints of the fingers.
--- NOTE | ~2023-06-15 | XR_ITS ---
Right Hand Technique: PA, oblique, and lateral views were obtained. Clinical History: Pain Findings: No acute fracture or dislocation is seen. There is advanced degenerative change of the seco nd and third DIP joints, and moderate degenerative change of the fourth and fifth DIP joints. Soft ti ssues are unremarkable. Impression: Degenerative change of the DIP joints of the fingers, as detailed above. Reviewed, dictated and finalized at location M. E HAND Impression: Degenerative change of the DIP joints of the fingers, as detailed above.
== END 2023-06-15 11:28 | disposition home or self-care (01) ==
PROVIDERS: PCP Internal Medicine; Visit Provider Plastic Surgery
DX: M43.06 Spondylolysis, lumbar region (principal); M41.86 Other forms of scoliosis, lumbar region; M19.042 Primary osteoarthritis, left hand; M19.041 Primary osteoarthritis, right hand
CPT/HCPCS: 72100; 73130

== ENCOUNTER 2023-06-23 07:51 | Outpatient (CLI) | payer MEDICARE, BC, SELFPAY ==
[2023-06-23 09:17] LABS: Appearance Urine Clear (Clear); Basophils Absolute Auto 0.1 K/mm3 (0.0-0.1); Basophils Percent Auto 0.6 % (0.2-1.2); Bilirubin Urine Negative (Negative); Blood Urine Negative (Negative); Color Urine Yellow (Yellow); Eosinophils Absolute Auto 0.4 K/mm3 (0-0.3); Eosinophils Percent Auto 3.4 % (0-4.4); Glucose Urine UA Negative (Negative); Hematocrit 45.2 % (37.0-47.0); Hemoglobin 14.2 g/dL (12.0-15.0); Immature Granulocyte Absolute 0.11 K/mm3 (0.00-0.031); Immature Granulocyte Percent A 0.9 % (0-0.5); Ketones Urine Negative (Negative); Leukocyte Esterase Ur Negative LEU/UL (Negative); Lymphocytes Percent Auto 14.3 % (18.3-44.2); Mean Corpuscular HGB Conc 31.4 g/dl (32-36); Mean Corpuscular Hemoglobin 28.7 pg (26-34); Mean Corpuscular Volume 91.5 fl (80-100); Monocytes Absolute Auto 1.2 K/mm3 (0.1-0.6); Monocytes Percent Auto 10.4 % (2.6-8.5); Neutrophils Absolute Auto 8.4 K/mm3 (1.3-6.7); Neutrophils Percent Auto 70.4 % (45.5-73.1); Nitrate Urine Negative (Negative); Platelet Count Result 311 k/mm3 (150-375); Protein Urine Negative (Negative); Red Blood Count 4.94 M/mm3 (4.2-5.4); Red Cell Distribution Width 13.4 % (11.5-14.5); Specific Grav Ur 1.021 (1.001-1.035); Urobilinogen Urine 0.2 mg/dL (<2.0); White Blood Count 11.9 K/mm3 (4.5-10.0); pH Urine 6.5 (5.0-9.0)
[2023-06-23 09:25] LABS: Urine Cotinine NEGATIVE
[2023-06-23 09:26] LABS: Add Urine Microscopic? NO; Albumin Level 4.1 g/dL (3.5-5.1); Anion Gap 2 mmol/L (8-16); Blood Urea Nitrogen 21 mg/dL (7-17); Calcium 9.6 mg/dL (8.4-10.2); Carbon Dioxide 35 mmol/L (22-30); Chloride 102 mmol/L (98-107); Estimated Glomerular Filt Rate > 60; Glucose 95 mg/dL (65-110); Potassium 4.6 mmol/L (3.4-5.0); Sodium 139 mmol/L (137-145)
[2023-06-23 09:31] LABS: INR 0.9
[2023-06-23 09:32] LABS: Partial Thromboplastin Time 28.7 SECONDS (22.3-36.8)
[2023-06-23 10:50] LABS: MRSA (PCR) NOT DETECTED (NOT DETECTE)
[2023-06-23 12:08] LABS: Hemoglobin A1C 6.1 % (<5.7)
== END 2023-06-23 07:52 | disposition home or self-care (01) ==
LOC: ANHSURGERY 07:55
PROVIDERS: PCP Internal Medicine; Visit Provider Orthopaedic Surgery
DX: Z01.818 Encounter for other preprocedural examination (principal); M17.12 Unilateral primary osteoarthritis, left knee
CPT/HCPCS: 80048; 80307; 81003; 82040; 83036; 85025; 85610; 85730; 86850; 86900; 86901; 87641

== ENCOUNTER 2023-07-05 01:29 | Day surgery (SDC) | payer MEDICARE, BC, SELFPAY ==
[2023-06-23 08:12] VITALS: BMI 36.3
--- NOTE | 2023-06-23 08:28 | PC.NURSE ---
Report to the Outpatient Waiting Room, entrance under the green pavilion located off [facility], at time _1000 on date ___07/05/23____. Planned Procedure Time: _1200 . Time changes happen often and if your time is changed the preop area will call you the afternoon before. - You and your visitor will be asked to self-screen and do not enter if you have any COVID symptoms. - A mask is optional within the hospital at this time. Patients may have clear liquids (water, carbonated beverages, clear teas, apple juice) until 3 hours prior to surgery ( 9:00 am)with a maximum of 20 ounces. - No food from midnight until time of surgery - Infants may have breast milk until 4 hours before surgery, infant formula 6 hours prior to surgery. - Children will be allowed to drink immediately following surgery. If applicable, please bring a bottle or sippy cup to assist with drinking. Juice, water, soda, and popsicles are readily available. For infants on formula, please bring formula the day of surgery. Pacifiers are allowed. Take the following medications with a SIP of water the morning of surgery: __BUSPIRONE, EYE DROPS IF NEEDED,FLUOXETINE,TRELEGY ELLIPTA INHALER DO NOT STOP ANY OF YOUR OTHER PRESCRIPTION MEDICATIONS PRIOR TO SURGERY ?EXCEPT THE FOLLOWING Medications to discontinue per physician _PATIENT STATES PER DR GRIFFITH HOLD ALL VITAMINS AND SUPPLEMENTS 7 DAYS PRE OP.LAST DOSE 06/27/23. MAY TAKE TYLENOL IF NEEDED FOR PAIN Please no make-up, nail citizen of the [place], hairspray, perfume, deodorant, or body powder the day of surgery. No jewelry (including any body piercings) or valuables the day of surgery, leave them at home. Please take a shower or bath the night before, or the morning of, surgery with an antibacterial soap. Wear comfortable, loose fitting clothing. Children are encouraged to wear pajamas. - Jewelry must be removed prior to entering the operating room. Rings and piercings that are not removed may be cut off. - The hospital will not accept responsibility for valuables. - Please leave all valuables, including medications, at home the day of surgery. If you are going home after surgery, a licensed jinrikisha driver must drive you home. - NO public transportation without another adult if you receive anesthesia. - We recommend that an adult stay with you for 24 hours following discharge. - We also recommend that you do not drive, make important decision, drink alcoholic beverages, or take any drugs that were not prescribed by your health care provider for at least 24 hours after your discharge time. Follow any additional instructions given to you from your surgeon. If you or anyone in your household have experienced Covid symptoms in the past week, please notify your surgeon or the nurse liaison at the phone number below for possible testing. VERBAL AND WRITTEN instructions given to __PATIENT and asked if any additional questions and then verbalized understanding. Patient advised to call surgeon office or pre surgery nurse liaison [phone] if any additional questions.
[2023-06-23 08:55] VITALS: BP 132/82; PULSE 68; RESP 18; TEMP 37.1; O2SAT 97
[2023-07-05] VITALS (14 sets, daily range): BP systolic 116–142; BP diastolic 59–88; PULSE 84–109; RESP 13–20; TEMP 36.2–36.8; O2SAT 93–97
--- NOTE | ~2023-07-05 | XR_ITS ---
EXAM: [id number] DATE: 07/05/2023 15:45 HISTORY: LT TOTAL KNEE . COMPARISON: 02/18/2023. FINDINGS: Decreased mineralization. Status post left knee total arthroplasty. Hardware components in good position. No hardware or osseous fracture. No perihardware lucency. Midline skin willy. Gas a nd fluid within the joint space. No unexpected radiopaque foreign body. IMPRESSION: Expected postsurgical changes, with no radiographic evidence of procedure or hardware rel ated complication. Reviewed, dictated and finalized at location K. CONNECTOR REPAIRER IMPRESSION: Expected postsurgical changes, with no radiographic evidence of pro cedure or hardware related complication.
--- NOTE | ~2023-07-05 | US_ITS ---
EXAMINATION: US venous doppler [facility] DATE: 07/07/2023 14:22 INDICATION: Lower limb pain, swelling and erythema post recent left knee replacement TECHNIQUE: Grayscale ultrasound images without and with compression and Doppler ultrasound images of the bilateral lower extremity veins were obtained. COMPARISON: None. FINDINGS: The visualized portions of right common femoral vein, profunda (deep) femoral vein, femoral vein, pop liteal vein, posterior tibial veins, peroneal veins, gastrocnemius vein and greater saphenous vein ou tflow are patent. The visualized portions of left common femoral vein, profunda femoral vein, femoral vein, popliteal v ein, posterior tibial veins, peroneal veins, gastrocnemius vein and greater saphenous vein outflow ar e patent. 4.6 x 2.2 x 1.0 cm Mark's cyst at the left popliteal fossa. IMPRESSION: 1. No deep venous thrombosis in either lower limb. 2. 4.6 x 2.2 x 1.0 cm left Mark's cyst. Reviewed, dictated and finalized at location L. NIGHT ASSOCIATE
[2023-07-05] MEDS: LACTATED RINGERS 1,000 ML 30 ML IV CONT (11:00)
[2023-07-05] MEDS: VANCOMYCIN 1,250 MG/NS 250 ML 1,250 MG/250 ML BAG 166.67 MG IVPB (11:03)
[2023-07-05] MEDS: ACETAMINOPHEN 500 MG TABLET 1000 MG PO (11:13)
[2023-07-05] MEDS: TRANEXAMIC ACID 1,000MG/ISO100 1,000 MG/100 ML BAG 200 MG IVPB (11:33)
--- NOTE | 2023-07-05 11:47 | WPDANESEPPF ---
Anes - Initial Pre Proc Eval Procedure: Operation Date: 07/05/23 12:00 Proposed Procedures p Left Total Knee Arthroplasty - Heath Padron MD Date/Time: 07/05/23 11:47 Surgeon: Heath Padron MD Pre Op Diagnosis: left knee djd Patient Data Age: 77 Gender: F Height: 1.5 m Weight: 81.1 kg Last Vital Signs Temp 36.8 C 07/05/23 10:30 Pulse 84 07/05/23 10:30 Resp 20 07/05/23 10:30 BP 131/88 07/05/23 10:30 Pulse Ox 96 07/05/23 10:30 O2 Del Method Room Air 07/05/23 10:30 Allergies Allergy/AdvReac Type Severity Reaction Status Date / Time Nickel allergy Allergy Unknown Itching Uncoded 07/05/23 10:31 Home Medications Medication Instructions Recorded Confirmed Type atorvastatin 20 mg tablet 20 mg PO DAILY 04/30/19 07/05/23 History carboxymethylcellulose sodium 0.5 1 drop ophthalmic (eye) BID PRN 04/30/19 07/05/23 History % eye drops (Refresh Tears) Dry Eye(S) fluoxetine 20 mg capsule 20 mg PO DAILY 04/30/19 07/05/23 History lisinopril 5 mg tablet 5 mg PO HS 04/30/19 07/05/23 History cholecalciferol (vitamin D3) 25 1,000 unit PO DAILY 08/11/20 07/05/23 History mcg (1,000 unit) tablet (Vitamin D3) pantoprazole 40 mg tablet,delayed 40 mg PO DAILY 08/11/20 07/05/23 History release vit C 250 mg-vit E 200 unit-zinc 1 cap PO BID 08/11/20 07/05/23 History ox 12.5 vo-xkqzue-sqccme-zeax capsule (ICaps AREDS2) Trelegy Ellipta 100 mcg-62.5 1 inh inhalation DAILY #60 ea 12/21/22 07/05/23 Rx mcg-25 mcg powder for inhalation (yriyhuqiium-mpwysagnb-eprnbdtb) buspirone 5 mg tablet 5 mg PO BID 01/03/23 07/05/23 History cyclosporine 0.05 % eye drops in a 1 drp EACH EYE Q12H 01/03/23 07/05/23 History dropperette furosemide 20 mg tablet 20 mg PO QAM PRN Edema 01/03/23 07/05/23 History ondansetron 4 mg disintegrating 4 mg PO Q6H PRN Nausea 01/03/23 07/05/23 History tablet potassium chloride 20 mEq 20 meq PO PRN PRN WHEN TAKES LASIX 01/03/23 07/05/23 History tablet,extended release Ventolin HFA 90 mcg/actuation See Rx Instructions .Route 03/30/23 07/05/23 Rx aerosol inhaler (albuterol sulfate) .COMPLEX #18 grams montelukast 10 mg tablet 10 mg PO QHS #30 tabs 04/18/23 07/05/23 Rx magnesium 250 mg tablet 250 mg PO DAILY 06/06/23 07/05/23 History turmeric 400 mg capsule 400 mg PO BID 06/06/23 07/05/23 History acetaminophen 500 mg capsule 1,000 mg PO Q6H PRN Pain 06/23/23 07/05/23 History cetirizine 10 mg tablet (Zyrtec) 10 mg PO DAILY 06/23/23 07/05/23 History vitamin B complex 1 cap PO DAILY 06/23/23 07/05/23 History chlorhexidine gluconate 4 % 1 applic topical DAILY #237 mL 06/27/23 06/27/23 Rx topical liquid (Hibiclens) Patient hx anesthesia problems: none Family hx anesthesia problems: none Results Review: All pre-operative results and documents have been reviewed as part of the pre-operative evaluation. [facility] Past Medical History Medical History Degenerative joint disease of knee Diabetes DJD of AC (acromioclavicular) joint High cholesterol HTN (hypertension) Right shoulder pain Rotator cuff tendonitis Trochanteric bursitis, right hip Surgical History Surgical History H/O hernia repair H/O: hysterectomy History of laparoscopic appendectomy Family History Family History Mother Family history of coronary artery disease Family history of lung disease Sibling Family history of cardiovascular disease Family history of chronic obstructive pulmonary disease Family history of congestive heart failure Alcoholism Hypertension Depression Heart disease Father Family history of chronic obstructive pulmonary disease Social History Social History Smoking packs per day: 1 Smoking cigarettes per day: 20.0 Years
--- NOTE | 2023-07-05 12:28 | WPDHPUPDATE1 ---
History and Physical Update Update Date/Time: 07/05/23 12:28 History and Physical has been reviewed, including an updated exam of the patient. There are NO changes in the patient's condition. Risks, benefits, and alternatives have been discussed and questions answered. Patient agrees to proceed with procedure.
[2023-07-05] MEDS: ceFAZolin 2 GM/D5W 50 ML 2 GM/50 ML BAG IVPB ×2 (12:41→20:43)
--- NOTE | 2023-07-05 12:41 | WPDANESPNB ---
Anes - Peripheral Nerve Block Date/Time: 07/05/23 12:41 I have discussed with the patient/family/POA the placement of a peripheral nerve block for post-operative pain management, including associated risks, benefits, complications, and side effects. Alternative methods of post-operative analgesia were detailed. Questions were solicited and answers provided to the satisfaction of the patient/family/POA. Time-Out: A pre-procedural Time-Out was completed immediately before starting the procedure and confirmed: Patient Identification, Site, Procedure, Patient Position and the Availability of Requisite Equipment. Clinical Indications: Acute post-operative pain management requested by the operative surgeon. Nerve Block Insertion Note Anes-nerve block: adductor canal left Patient position: supine Skin prep: chlorhexidine Needle: 22 gauge, stimulating, insulated echogenic needle. Needle length: 80 mm Technique: ultrasound Technique comment: fent 50mcg Injectate: bupivacaine 0.5% with epi 5 mcg/ml (30ml no epi) and dexamethasone (mg) (4) Observations: tolerated well Complications: none Procedure start time:: 1230 Procedure end time:: 1236
[2023-07-05] MEDS: SODIUM CHLORIDE 0.9% IV 37.7 ML, MORPHINE SULFATE INJ (*CRX) 2 MG, ROPivacaine HCL 1% 2... INFILTRATE (13:15)
[2023-07-05] MEDS: GENTAMICIN BONE CEMENT REFOBACIN 1 EACH TOPICAL (13:17)
[2023-07-05] MEDS: TRANEXAMIC ACID 1,000 MG/10 ML AMPUL 1000 MG IV PUSH (14:26)
--- NOTE | 2023-07-05 15:24 | W.PM.PROC2 ---
Procedure Note - Detailed Date of Procedure 07/05/23 Pre-op Diagnosis left knee djd Post-op Diagnosis Same Procedure Performed L TKA Surgeon Heath Padron MD Anesthesia General Description of Procedure THE LEFT KNEE WAS PREPPED AND DRAPED IN THE STERILE FASHION. THERE WAS A 15 DEGREE FLEXION CONTRACTURE. A MIDLINE SKIN INCISION WAS MADE. A MEDIAL PARAPATELLAR ARTHROTOMY WAS MADE. THE PATELLA WAS EVERTED. THERE WAS TRICOMPARTMENT DJD. THERE WAS MINIMAL PATELLA DJD. AN INTRAMEDULLARY NARDA WAS PLACED IN THE FEMUR. A DISTAL FEMORAL CUT WAS MADE IN 5 DEGREES OF VALGUS REMOVING APPROXIMATELY 11 MM OF BONE FROM THE DISTAL FEMUR. THE FEMUR WAS SIZED TO 65. A 65 FEMORAL CUTTING BLOCK WAS PLACED IN 3 DEGREES OF EXTERNAL ROTATION AND IN ALIGNMENT WITH RAY'S LINE AND THE TRANSEPICONDYLAR AXIS. ANTERIOR POSTERIOR AND CHAMFER CUTS WERE MADE. THE CUTS WERE EXCELLENT. NEXT AN INTRAMEDULLARY CUTTING GUIDE WAS PLACED IN THE TIBIA. A TRANS TIBIAL CUT WAS MADE ALONG THE LONG AXIS OF THE TIBIA. APPROXIMATELY 10 MM OF BONE WAS REMOVED FROM THE HIGH SIDE OF THE TIBIA. THE TIBIA WAS THEN PLANED TO A SMOOTH SURFACE. POSTERIOR FEMORAL OSTEOPHYTES WERE REMOVED FROM THE FEMORAL CONDYLES. A 71 TIBIAL TRIAL WAS PLACED IN ALIGNMENT WITH THE 1/3 MEDIAL ASPECT OF THE TIBIAL TUBERCLE. THEN A 65 FEMORAL TRIAL COMPONENT WAS PLACED. BOTH HAD EXCELLENT FITS. EVENTUALLY A 10 MM POLYETHYLENE TRIAL COMPONENT WAS PLACED. THE KNEE WAS TAKEN THROUGH A RANGE OF MOTION. THE KNEE CAME OUT TO FULL EXTENSION. THERE WAS NO ABNORMAL TILT TO THE PATELLA. THERE WAS GOOD A/P AND VARUS/VALGUS STABILITY. THERE WAS NO EXCESSIVE ROLL BACK WITH FLEXION. THE TRIAL COMPONENTS WERE REMOVED. THEN A 65 FEMORAL COMPONENT AND 71 TIBIAL COMPONENT WITH A 10 POLYETHYLENE COMPONENT WERE CEMENTED INTO PLACE. ONCE THE CEMENT WAS HARD THE KNEE WAS TAKEN THROUGH A ROM AGAIN AND FOUND TO BE STABLE WITH NO PATELLA TILT NO EXCESSIVE ROLL BACK WITH FLEXION AND GOOD STABILITY WITH COMPLETE AND FULL EXTENSION. THE KNEE WAS IRRIGATED WITH STERILE BETADINE AND WATER FOR ABOUT 3 MINUTES. THE BLEEDERS WERE CAUTERIZED. THE ARTHROTOMY WAS REPAIRED WITH NUMBER 1 VICRYL. THE SUB CUTANEOUS LAYER WITH 2-0 VICRYL AND THE SKIN WITH MAL. THE WOUND WAS WASHED AND A STERILE DRESSING WAS APPLIED. PATIENT WAS EXTUBATED. Estimated Blood Loss -150.0 Pathology None sent Complications No immediate complications Condition Stable Disposition PACU
[2023-07-05] MEDS: fentaNYL CITRATE INJ (*CRX) 100 MCG/2 ML VIAL 25 MCG IV PUSH ×6 (15:40→16:13)
[2023-07-05] MEDS: ONDANSETRON INJ 4 MG/2 ML VIAL IV PUSH ×2 (16:21→20:37)
--- NOTE | 2023-07-05 16:58 | ADMGEN ---
This patient, Beena Ortiz, was admitted to 3 [facility] Surg Room 319-01. Patient/family oriented to hospital policies and general routines including ID bracelet, bed and alarms, visiting hours, pain management, procedures, bathroom and other care routines, personal items, smoking policy, room service/diet, and visiting hours. Information on how to activate the Rapid Response Team has been discussed. Patient/Family are encouraged to report perceived risks to care and to ask questions if they do not understand what they are told or what they should do.
[2023-07-05] MEDS: oxyCODONE/ACETAMINOPHEN (*CRX) 5-325 MG TABLET 2 TABLET PO (17:11)
[2023-07-05] MEDS: SODIUM CHLORIDE 0.9% IV 1,000 ML 125 ML IV CONT (17:30)
[2023-07-05] MEDS: busPIRone HCL 5 MG TABLET PO (17:35)
[2023-07-05] MEDS: CELECOXIB 200 MG CAPSULE PO (17:36)
[2023-07-05] MEDS: SENNA/DOCUSATE SODIUM TABLET 2 TAB PO (17:36)
[2023-07-05] MEDS: ASPIRIN 325 MG ENTERIC TABLET PO (20:38)
[2023-07-05] MEDS: FAMOTIDINE 20 MG TABLET PO (20:38)
[2023-07-05] MEDS: lisinopriL 5 MG TABLET PO (20:38)
[2023-07-06] VITALS (7 sets, daily range): BP systolic 89–126; BP diastolic 45–70; PULSE 79–107; RESP 14–20; TEMP 36.2–37.1; O2SAT 92–97
[2023-07-06] MEDS: ceFAZolin 2 GM/D5W 50 ML 2 GM/50 ML BAG IVPB ×2 (04:22→14:18)
[2023-07-06] MEDS: ACETAMINOPHEN 500 MG TABLET 1000 MG PO ×2 (04:22→14:18)
[2023-07-06 06:45] LABS: Hematocrit 35.6 % (37.0-47.0); Hemoglobin 11.2 g/dL (12.0-15.0); Mean Corpuscular HGB Conc 31.5 g/dl (32-36); Mean Corpuscular Hemoglobin 29.2 pg (26-34); Mean Platelet Volume 10.8 fl (7.4-10.4); Platelet Count Result 213 k/mm3 (150-375); Red Blood Count 3.83 M/mm3 (4.2-5.4); Red Cell Distribution Width 13.5 % (11.5-14.5); White Blood Count 14.1 K/mm3 (4.5-10.0)
[2023-07-06 06:58] LABS: Anion Gap 1 mmol/L (8-16); Blood Urea Nitrogen 20 mg/dL (7-17); Calcium 8.7 mg/dL (8.4-10.2); Carbon Dioxide 30 mmol/L (22-30); Chloride 105 mmol/L (98-107); Estimated Glomerular Filt Rate > 60; Glucose 107 mg/dL (65-110); Potassium 4.5 mmol/L (3.4-5.0); Sodium 136 mmol/L (137-145)
[2023-07-06 08:54] LABS: Total Cells Counted 100
[2023-07-06 09:05] LABS: Band Neutrophils Percent 3 % (0-6); Basophils Absolute Manual 0.14 K/mm3 (0.0-0.1); Basophils Percent Manual 1 % (0-1); Lymphocytes Percent Manual 5 % (18-44); Monocytes Absolute Manual 1.26 K/mm3 (0.1-0.90); Monocytes Percent Manual 9 % (3-9); Neutrophils Absolute Manual 11.98 K/mm3 (1.7-7.2); Neutrophils Percent Manual 82 % (46-73)
[2023-07-06 09:06] LABS: Platelet Estimate Adequate (Adequate); Schistocytes None Seen (NORMAL)
[2023-07-06] MEDS: ASPIRIN 325 MG ENTERIC TABLET PO ×2 (09:58→20:24)
[2023-07-06] MEDS: CHOLECALCIFEROL 1,000 UNITS TABLET 1000 UNITS PO (09:58)
[2023-07-06] MEDS: CELECOXIB 200 MG CAPSULE PO ×2 (09:59→17:13)
[2023-07-06] MEDS: FLUoxetine HCL 20 MG CAPSULE PO (09:59)
[2023-07-06] MEDS: FAMOTIDINE 20 MG TABLET PO ×2 (09:59→20:24)
[2023-07-06] MEDS: busPIRone HCL 5 MG TABLET PO ×2 (09:59→17:13)
--- NOTE | 2023-07-06 17:31 | PM.PNORT ---
Progress Note: A&P Assessment and Plan (1) Left knee DJD: Code(s): M17.12 - Unilateral primary osteoarthritis, left knee Status: Acute Assessment and Plan: POD 1 DOING WELL. WE WILL ASK FOR A MEDICINE CONSULT FOR HER BP LABILITY. SHE WILL MOST LIKELY BE ABLE TO GO HOME TOMORROW Subjective Subjective Date/Time Seen: 07/06/23 17:31 Interval history: POD 1 DOING WELL. SHE HAS HAD BP INSTABILITY THE WHOLE DAY. I HAVE STOPPED HER BP MEDS FOR NOW. OTHERWISE SHE IS DOING WELL FROM ORTHO STAND POINT. Exam Extrem: Other: VSS AFEBRILE DRESSING DRY NV INTACT NEG HOMANS SIGN, CALD SOFT NON TENDER. Objective Data Vital Signs Vital Signs: Vital Signs - 24 hr 07/05/23 17:45 07/05/23 20:40 07/06/23 00:10 Temperature 36.5 C 36.5 C 36.9 C Pulse Rate 96 109 H 107 H Respiratory Rate 16 18 16 Blood Pressure 120/67 132/72 117/58 L Pulse Oximetry 93 95 96 Oxygen Delivery 07/06/23 05:15 07/06/23 08:22 07/06/23 10:28 Temperature 36.6 C 36.9 C Pulse Rate 99 79 Respiratory Rate 16 20 Blood Pressure 126/58 L 95/51 L Pulse Oximetry 92 95 Oxygen Delivery Room Air 07/06/23 08:00 07/06/23 14:00 07/06/23 16:20 Temperature 37.1 C 37.0 C Pulse Rate 79 87 Respiratory Rate 20 18 Blood Pressure 91/61 L 89/45 L Pulse Oximetry 97 97 Oxygen Delivery Room Air Intake/Output Intake/Output: Intake & Output 07/03/23 07/04/23 07/05/23 07/06/23 23:59 23:59 23:59 23:59 Intake Total 400 762 Balance 400 762 Meds/Results Medications: Active Medications Generic Name Dose Route Start Last Admin Trade Name Freq PRN Reason Stop Dose Admin Acetaminophen 1,000 mg 07/05/23 16:43 07/06/23 14:18 Acetaminophen 500 Mg Tablet PO 1,000 mg Q6H PRN Administration Pain Rated 1-3 Artificial Tears 1 drop 07/05/23 16:51 Artificial Tears Ophth Soln 15 Ml Bottle EACH EYE BID PRN Dry Eye(s) Aspirin 325 mg 07/05/23 21:00 07/06/23 09:58 Aspirin 325 Mg Enteric Tablet PO 325 mg Q12HR STEPHEN Administration Buspirone HCl 5 mg 07/05/23 17:00 07/06/23 17:13 Buspirone Hcl 5 Mg Tablet PO 5 mg BID STEPHEN Administration Celecoxib 200 mg 07/05/23 17:00 07/06/23 17:13 Celecoxib 200 Mg Capsule PO 200 mg BIDWM STEPHEN Administration Diazepam 5 mg 07/05/23 16:43 Diazepam (*Crx) 5 Mg Tablet PO Q8H PRN Spasms Diphenhydramine HCl 25 mg 07/05/23 16:43 Diphenhydramine Hcl Inj 50 Mg/Ml Vial IV PUSH Q6H PRN Itching Famotidine 20 mg 07/05/23 21:00 07/06/23 09:59 Famotidine 20 Mg Tablet PO 20 mg Q12HR STEPHEN Administration Fluoxetine HCl 20 mg 07/06/23 09:00 07/06/23 09:59 Fluoxetine Hcl 20 Mg Capsule PO 20 mg DAILY STEPHEN Administration Furosemide 20 mg 07/05/23 16:43 Furosemide 20 Mg Tablet PO QAM PRN Edema Lisinopril 5 mg 07/05/23 21:00 07/05/23 20:38 Lisinopril 5 Mg Tablet PO 5 mg HS STEPHEN Administration Naloxone HCl 0.1 mg 07/05/23 16:43 Naloxone Hcl 0.4 Mg/Ml Vial IV PUSH Q2M PRN Opiate Reversal Ondansetron HCl 4 mg 07/05/23 16:43 07/05/23 20:37 Ondansetron Inj 4 Mg/2 Ml Vial IV PUSH 4 mg Q4H PRN Administration Nausea And Vomiting Oxycodone/Acetaminophen 1 tablet 07/05/23 16:43 Oxycodone/Acetaminophen (*Crx) 5-325 Mg Tablet PO Q4H PRN Pain Rated 4-6 Oxycodone/Acetaminophen 2 tablet 07/05/23 16:43 07/05/23 17:11 Oxycodone/Acetaminophen (*Crx) 5-325 Mg Tablet PO 2 tablet Q6H PRN Administration Pain Rated 7-10 Polyethylene Glycol 17 gm 07/06/23 09:00 07/06/23 10:00 Polyethylene Glycol 3350 17 Gm Powd.Pack PO Not Given QAM [facility] Potassium Chloride 20 meq 07/05/23 16:43 Potassium Chloride 20 Meq Er Tablet PO QAM PRN WHEN TAKES LASIX Senna/Docusate Sodium 2 tab 07/05/23 17:00 07/06/23 09:59 Senna/Docusate Sodium Tablet PO Not Given BID STEPHEN Vitamin D 1,000 units 07/06/23 0
[2023-07-06] MEDS: SODIUM CHLORIDE 0.9% IV 500 ML IV CONT (19:43)
--- NOTE | 2023-07-06 20:19 | WPDCN ---
Assessment and Plan Assessment and plan (1) S/P total knee arthroplasty: Code(s): Z96.659 - Presence of unspecified artificial knee joint Status: Acute Assessment and Plan: Postop day 1 from a left total knee replacement PT and OT are ordered Incentive spirometry q.2 hours Percocet ordered for pain (2) GERD (gastroesophageal reflux disease): Code(s): K21.9 - Gastro-esophageal reflux disease without esophagitis Status: Acute Assessment and Plan: Continue Pepcid (3) Diabetes: Code(s): E11.9 - Type 2 diabetes mellitus without complications Status: Acute Assessment and Plan: Blood glucose ranging 95-107 Diet controlled at home, no medications Last hemoglobin A1c done on 06/23/2023 was 6.1 Accu-Cheks AC and HS Hypoglycemic protocol ordered Low-dose sliding scale ordered (4) Hypotension: Code(s): I95.9 - Hypotension, unspecified Status: Acute Assessment and Plan: Currently hypotensive with blood pressures ranging 89/45 to 95/51 Baseline blood pressures 116/62 to 138/71 Considering the recent surgery, low blood pressure, low urine output we will go ahead and give 1 L normal saline bolus and start patient on IV fluids overnight at 100 ml per hour. Lisinopril and Lasix on hold (5) High cholesterol: Code(s): E78.00 - Pure hypercholesterolemia, unspecified Status: Acute Assessment and Plan: Continue atorvastatin HPI Data of Consult Date/Time: 07/06/23 20:19 Requesting Physician: Heath Padron MD Primary Care Provider: Allie Arizmendi, Consult Narrative Narrative: Beena Ortiz is a 77 year old female with a significant past medical history of diabetes, hypertension, hyperlipidemia, hysterectomy appendectomy who presented to the hospital for elective left total knee replacement surgery on 07/05/2023. She is currently postop day 1 and nursing was reporting hypotension after patient received her Lasix 20 mg and her lisinopril today. Her blood pressures have been reported as 89/45 to 95/51. Her normal blood pressure ranges 120/67 to 132/72. Her Lasix and lisinopril have been held. Went ahead and gave her 1 L normal saline bolus and started her on for IV fluids for overnight. Labs today revealed white blood cell count of 14.1, hemoglobin 11.2, hematocrit 35.6 is, sodium 136. On examination today patient is alert and oriented x3, lying in the bed. She states that her pain is well controlled. Patient denies any fever, chills, nausea, vomiting, diarrhea, abdominal pain, shortness a breath, chest pain. Patient endorses a slight headache. Review of Systems Review of Systems: All systems reviewed & are unremarkable except as noted in HPI and below Constitutional: Constitutional: Reports as per HPI and Reports no additional constitutional complaints Eyes: Eyes: Reports as per HPI and Reports no additional eye complaints ENT: Reports system reviewed and no additional complaints, except as documented and Reports as per HPI Cardiovascular: Cardiovascular: Reports as per HPI and Reports no additional cardiovascular complaints Respiratory: Respiratory: Reports as per HPI and Reports no additional respiratory complaints Gastrointestinal: Gastrointestinal: Reports as per HPI and Reports no additional gastrointestinal complaints Genitourinary: Genitourinary: Reports no additional female genitourinary complaints and Reports as per HPI Musculoskeletal: Musculoskeletal: Reports no additional musculoskeletal complaints and Reports as per HPI Integumentary/Breasts: Skin/Breast: Reports system reviewed and no additional complaints, except as docu and Reports as per HPI Neurologic: Reports system reviewed and no additional complaints, except as documented and Reports as per HPI Psychiatric: Psychiatric: Reports no additional psychiatric complaints and Reports as per HPI PMFSH Past Medical History Medical
[2023-07-06] MEDS: MONTELUKAST SODIUM 10 MG TABLET PO (21:23)
[2023-07-06] MEDS: cycloSPORINE 0.4 ML OPHTH SOLUTION 1 DROP EACH EYE (21:23)
[2023-07-06 21:31] LABS: Glucose Point of Care 124 mg/dl (65-105)
[2023-07-06] MEDS: SODIUM CHLORIDE 0.9% IV 1,000 ML 100 ML IV CONT (21:36)
[2023-07-07 06:00] VITALS: BP 147/76; PULSE 86; RESP 13; TEMP 36.9; O2SAT 92
[2023-07-07 08:08] LABS: Glucose Point of Care 89 mg/dl (65-105)
[2023-07-07] MEDS: ONDANSETRON INJ 4 MG/2 ML VIAL IV PUSH (08:36)
[2023-07-07] MEDS: SENNA/DOCUSATE SODIUM TABLET 2 TAB PO (08:36)
[2023-07-07] MEDS: polyethylene glycoL 3350 17 GM POWD.PACK PO (08:36)
[2023-07-07] MEDS: cycloSPORINE 0.4 ML OPHTH SOLUTION 1 DROP EACH EYE (08:37)
[2023-07-07] MEDS: MAGNESIUM 13.5 MG TABLET (250 MG MAG GLUCONATE) PO (08:37)
[2023-07-07] MEDS: LORATADINE 10 MG TABLET PO (08:37)
[2023-07-07] MEDS: CELECOXIB 200 MG CAPSULE PO (08:37)
[2023-07-07] MEDS: FLUoxetine HCL 20 MG CAPSULE PO (08:37)
[2023-07-07] MEDS: ATORVASTATIN 20 MG TABLET PO (08:37)
[2023-07-07] MEDS: CHOLECALCIFEROL 1,000 UNITS TABLET 1000 UNITS PO (08:37)
[2023-07-07] MEDS: FAMOTIDINE 20 MG TABLET PO (08:37)
[2023-07-07] MEDS: ASPIRIN 325 MG ENTERIC TABLET PO (08:37)
[2023-07-07] MEDS: busPIRone HCL 5 MG TABLET PO (08:37)
[2023-07-07 08:54] LABS: Hematocrit 37.6 % (37.0-47.0); Hemoglobin 11.9 g/dL (12.0-15.0); Mean Corpuscular HGB Conc 31.6 g/dl (32-36); Mean Corpuscular Hemoglobin 29.4 pg (26-34); Mean Corpuscular Volume 92.8 fl (80-100); Mean Platelet Volume 10.6 fl (7.4-10.4); Platelet Count Result 223 k/mm3 (150-375); Red Blood Count 4.05 M/mm3 (4.2-5.4); Red Cell Distribution Width 13.8 % (11.5-14.5)
[2023-07-07 09:14] LABS: Anion Gap 3 mmol/L (8-16); Blood Urea Nitrogen 18 mg/dL (7-17); Calcium 8.8 mg/dL (8.4-10.2); Carbon Dioxide 28 mmol/L (22-30); Chloride 104 mmol/L (98-107); Estimated Glomerular Filt Rate > 60; Glucose 137 mg/dL (65-110); Potassium 4.4 mmol/L (3.4-5.0); Sodium 135 mmol/L (137-145)
--- NOTE | 2023-07-07 09:23 | PM.PNORT ---
Progress Note: A&P Assessment and Plan (1) S/P total knee arthroplasty: Qualifiers: Laterality: left Qualified Code(s): Z96.652 - Presence of left artificial knee joint Code(s): Z96.659 - Presence of unspecified artificial knee joint Status: Acute Assessment and Plan: POD #2: Left TKA Continue PT/OT. WBAT. Walker. HIGH FALL RISK. Continue pain control. Ice Knee. Protect skin. DVT prophylaxis with Aspirin. SCDs. Incentive Spirometry Use reviewed. Monitor Dressing. Change prior to discharge. Bowel Regimen. Dispo: Home with Home Health pending progress with PT/OT and medical clearance. (2) Hypotension: Code(s): I95.9 - Hypotension, unspecified Status: Acute Assessment and Plan: Postoperative hypotension. Hospitalist consulted by Dr. Padron. Patient given a bolus overnight and started on IV fluids. Lisinopril held. Now with elevated BP this AM. Patient is complaining of nausea and not eating breakfast. Would like to restart Lisinopril at this time. Nursing to consult with medicine team to ensure agreeable before proceeding. (3) High cholesterol: Code(s): E78.00 - Pure hypercholesterolemia, unspecified Status: Acute Plan Reviewed history, exam, radiographs and current labs with attending MD and covering surgeon, Dr. Padron, who agrees with current plan as indicated above. No further recommendations from Dr. Padron at this time. Subjective Subjective Date/Time Seen: 07/07/23 09:23 Post Op day: 2 Interval history: POD #2: Left TKA Patient doing well. Pain well controlled. Complaining of some nausea. Still on IV fluids. Now with elevated BP this AM. Review of Systems Review of Systems: All systems reviewed & are unremarkable except as noted in HPI and below Constitutional: Constitutional: Denies fever(s) and Denies headache(s) ENT: Denies headache(s) Cardiovascular: Cardiovascular: Denies chest pain, Denies diaphoresis, Denies palpitations and Denies dyspnea Respiratory: Respiratory: Denies dyspnea Gastrointestinal: Gastrointestinal: Denies abdominal pain, Denies constipation, Denies nausea and Denies vomiting Genitourinary: Genitourinary: Reports nocturia and Denies dysuria Musculoskeletal: Musculoskeletal: Reports arthralgias (Left Knee ), Reports joint swelling (Left Knee ) and Reports limited range of motion (ROM limited due to recent surgical intervention LEFT Knee ) Neurologic: Denies headache(s) Endocrine: Endocrine: Denies palpitations Exam Const: General: comfortable and no acute distress Resp: Effort & Inspection: normal respiratory effort Cardio: Rate: regular rate Rhythm: regular rhythm GI: GI Palp: Yes Soft to palpation, No Tenderness to palpation present (GI) and No Guarding due to palpation present (GI) Skin: General skin exam: wounds noted (see extremity assessment ) Wounds: wounds noted (see extremity assessment ) Neuro: Cognition (Neuro): normal cognition Other: NV intact aside from block. Moves toes. Sensation intact to light touch. +ankle dorsiflexion/plantarflexion. Extrem: Left lower extremity: normal to inspection, normal capillary refill, knee Details: tenderness (diffuse ) Location: of the patella, swelling (moderate consistent to recent surgery ), abnormal ROM (limited due to recent surgery ) Details: pain with active ROM and pain with passive ROM and ecchymosis (as expected with recent surgery. NO hematoma. ), lower leg (Negative Luciano's Sign ), ankle (+ankle dorsiflexion/plantarflexion ) Details: normal to inspection, no edema and normal ROM; no tenderness and no swelling and foot Details: normal capillary refill, toes with normal ROM, vascular exam Details: dorsalis pedis pulse present and motor-sensory exam light-touch normal; no tenderness Other: Incision left TKA dressing c/d/i. No hematoma. No signs of infection. No wound dehiscence. Psych: Mental Status: mental status grossly normal
--- NOTE | 2023-07-07 11:51 | PM.IMPN ---
Progress Note: A&P Assessment and Plan (1) S/P total knee arthroplasty: Qualifiers: Laterality: left Qualified Code(s): Z96.652 - Presence of left artificial knee joint Code(s): Z96.659 - Presence of unspecified artificial knee joint Status: Acute Assessment and Plan: Patient with osteoarthritis now postop day 2 from a left total knee replacement. PT and OT ordered Incentive spirometry q.2 hours Percocet ordered for pain Check LE venous doppler (2) Nausea: Code(s): R11.0 - Nausea Status: Acute Assessment and Plan: Patient with chronic nausea since repair of her hiatal hernia. Continue to monitor. Monitor oral intake Symptomatic care (3) GERD (gastroesophageal reflux disease): Code(s): K21.9 - Gastro-esophageal reflux disease without esophagitis Status: Acute Assessment and Plan: Stable. Continue Pepcid (4) Diabetes: Code(s): E11.9 - Type 2 diabetes mellitus without complications Status: Acute Assessment and Plan: A1c 6.1. The patient's blood glucose was reviewed on Glucose remains well controlled. Continue AccuCheks covering with sliding scale. Hypoglycemia protocol available as needed. Continue to monitor (5) Hypotension: Code(s): I95.9 - Hypotension, unspecified Status: Acute Assessment and Plan: Patient's blood pressure was reviewed on Patient became mildly hypotensive yesterday. Due to the recent surgery, low blood pressure, and low urine output, she received 1 L NS bolus and started on IV fluids. Lisinopril and Lasix on hold. BP better so stop IV fluids. Lisinopril resumed by others. Follow (6) High cholesterol: Code(s): E78.00 - Pure hypercholesterolemia, unspecified Status: Acute Assessment and Plan: Stable. Continue atorvastatin Plan DVT prophylaxis - SCDs Code status - full Subjective Date/time seen: 07/07/23 11:51 Interval history: 77yo female with DM and HTN here for elective left TKA for OA. Her pain is tolerable today. Does complain of nausea but this for a chronic issue since having her hiatal hernia repaired. She has no history of issues with anesthesia. She denies weight loss. She does have a history of tobacco use. Exam Narrative: AF 98.5 147/76 86 13 92% ra Gen - NARD Chest - CTA bilaterally, nml RR CV - RRR S1/S2 Abd - Soft, NT/ND, Positive BS Ext -before extremity edema. Left knee dressing is clean, dry intact. Bruising noted around the left knee. Positive Homans sign on the left Neuro - Alert and oriented. Nonfocal exam. Psych - Nml mood and affect Skin - Patch of erythema left martins is warm touch. Objective Data Vital Signs Vital Signs: Vital Signs - 24 hr 07/06/23 14:00 07/06/23 16:20 07/06/23 21:34 Temperature 98.8 F 98.6 F Pulse Rate 79 87 Respiratory Rate 20 18 Blood Pressure 91/61 L 89/45 L 116/70 Pulse Oximetry 97 97 07/06/23 22:00 07/07/23 06:00 Temperature 97.2 F L 98.5 F Pulse Rate 88 86 Respiratory Rate 14 13 Blood Pressure 111/60 147/76 H Pulse Oximetry 96 92 Intake/Output Intake/Output: Intake & Output 07/04/23 07/05/23 07/06/23 07/07/23 23:59 23:59 23:59 23:59 Intake Total 400 1062 Balance 400 1062 Meds/Results Medications: Active Medications Generic Name Dose Route Start Last Admin Trade Name Freq PRN Reason Stop Dose Admin Acetaminophen 1,000 mg 07/05/23 16:43 07/06/23 14:18 Acetaminophen 500 Mg Tablet PO 1,000 mg Q6H PRN Administration Pain Rated 1-3 Artificial Tears 1 drop 07/05/23 16:51 Artificial Tears Ophth Soln 15 Ml Bottle EACH EYE BID PRN Dry Eye(s) Aspirin 325 mg 07/05/23 21:00 07/07/23 08:37 Aspirin 325 Mg Enteric Tablet PO 325 mg Q12HR STEPHEN Administration Atorvastatin Calcium 20 mg 07/07/23 09:00 07/07/23 08:37 Atorvastatin 20 Mg Tablet PO 20 mg DAILY S
[2023-07-07 11:56] LABS: Glucose Point of Care 95 mg/dl (65-105)
[2023-07-07] MEDS: lisinopriL 5 MG TABLET PO (12:00)
[2023-07-07 13:12] VITALS: BP 142/64; PULSE 115; RESP 16; O2SAT 94
[2023-07-07 14:52] VITALS: BP 123/64; PULSE 108; RESP 16; O2SAT 95
--- NOTE | 2023-07-07 15:15 | PM.DS ---
DS: Admitting Diagnosis Discharge Date 07/07/23 Admitting Diagnosis Left Knee DJD DS: Discharge Diagnosis Discharge Diagnosis (1) S/P total knee arthroplasty: Qualifiers: Laterality: left Qualified Code(s): Z96.652 - Presence of left artificial knee joint Code(s): Z96.659 - Presence of unspecified artificial knee joint Status: Acute Assessment and Plan: POD #2: Left TKA Continue PT/OT. WBAT. Walker. HIGH FALL RISK. Continue pain control. Ice Knee. Protect skin. DVT prophylaxis with Aspirin. SCDs. Incentive Spirometry Use reviewed. Monitor Dressing. Change prior to discharge. Bowel Regimen. Dispo: Home with Home Health pending progress with PT/OT and medical clearance. (2) Hypotension: Code(s): I95.9 - Hypotension, unspecified Status: Acute Assessment and Plan: Postoperative hypotension. Hospitalist consulted by Dr. Padron. Patient given a bolus overnight and started on IV fluids. Lisinopril held. Now with elevated BP this AM. Patient is complaining of nausea and not eating breakfast. Would like to restart Lisinopril at this time. Nursing to consult with medicine team to ensure agreeable before proceeding. (3) High cholesterol: Code(s): E78.00 - Pure hypercholesterolemia, unspecified Status: Acute Plan Reviewed history, exam, radiographs and current labs with attending MD and covering surgeon, Dr. Padron, who agrees with current plan as indicated above. No further recommendations from Dr. Padron at this time. DS: Summary Hospital Course Reason for hospitalization: Left TKA Hospital Course: 77 year old male admitted s/p Left TKA for postoperative medical management, pain control and mobilization with PT/OT. Patient progressed well with PT/OT. Difficulty with BP control on POD #1. Required medicine consult and IV fluid bolus. Vitals stable on POD #2. The patient has been cleared to be discharged home with home health at this time. All discharge care instructions reviewed at depth. New medications reviewed. Follow up planned for 3 weeks in the outpatient orthopedic clinic with Dr. Padron. Dr. Padron in agreement with safe discharge at this time. Status at Discharge Functional status at discharge: uses cane/walker Overall status at discharge: patient is progressing back to baseline Time Spent with Patient Time attestation: Total time spent providing and/or coordinating discharge services: Exam Const: General: comfortable and no acute distress Resp: Effort & Inspection: normal respiratory effort Cardio: Rate: regular rate Rhythm: regular rhythm Skin: General skin exam: wounds noted (see extremity assessment ) Wounds: wounds noted (see extremity assessment ) Neuro: Cognition (Neuro): normal cognition Other: NV intact aside from block. Moves toes. Sensation intact to light touch. +ankle dorsiflexion/plantarflexion. Extrem: Left lower extremity: normal to inspection, normal capillary refill, knee Details: tenderness (diffuse ) Location: of the patella, swelling (moderate consistent to recent surgery ), abnormal ROM (limited due to recent surgery ) Details: pain with active ROM and pain with passive ROM and ecchymosis (as expected with recent surgery. NO hematoma. ), lower leg (Negative Luciano's Sign ), ankle (+ankle dorsiflexion/plantarflexion ) Details: normal to inspection, no edema and normal ROM; no tenderness and no swelling and foot Details: normal capillary refill, toes with normal ROM, vascular exam Details: dorsalis pedis pulse present and motor-sensory exam light-touch normal; no tenderness Other: Incision left TKA dressing c/d/i. No hematoma. No signs of infection. No wound dehiscence. Psych: Mental Status: mental status grossly normal DS: Data Data Completed and Pending Labs on day of discharge: Labs from last 24 hours 07/07/23 07/07/23 07/07/23 11:49 08:44 08:06 WBC 9.0 RBC 4.05 L Hgb 11.9 L Hct
== END 2023-07-07 16:30 | disposition home health service (06) ==
LOC: ANHSURGERY 09:43 → ANH3MEDSUR 07-06 14:25 → ANHSURGERY 07-11 06:22
PROVIDERS: Nurse Practitioner Family; PCP Internal Medicine; Visit Provider Orthopaedic Surgery
PROC: (CPT 27447; principal; 2023-07-05 12:00)
DX: M17.12 Unilateral primary osteoarthritis, left knee (principal); G89.18 Other acute postprocedural pain; I95.9 Hypotension, unspecified; M79.89 Other specified soft tissue disorders; M71.22 Synovial cyst of popliteal space [Baker], left knee; R11.0 Nausea; E11.9 Type 2 diabetes mellitus without complications; E78.00 Pure hypercholesterolemia, unspecified; I10 Essential (primary) hypertension; K21.9 Gastro-esophageal reflux disease without esophagitis; Z87.891 Personal history of nicotine dependence; E66.9 Obesity, unspecified; Z68.36 Body mass index [BMI] 36.0-36.9, adult; Z79.51 Long term (current) use of inhaled steroids
CPT/HCPCS: 27447; 64447; 36415; 73560; 80048; 82948; 85025; 85027; 93970; 97110; 97116; 97161; 97165; 97530; 97535; A9270; C1713; J0171; J0690; J1100; J1885; J2270; J2405; J2704; J2795; J3010; J3370; J7030; J7040; J7120

== ENCOUNTER 2023-07-12 12:38 | Emergency (ER) | payer MEDICARE, BC, SELFPAY ==
--- NOTE | ~2023-07-12 | US_ITS ---
EXAMINATION: US venous doppler [facility] DATE: 07/12/2023 15:16 INDICATION: Left leg pain and swelling TECHNIQUE: Huston scale images without and with compression and Doppler images of the left lower extrem ity veins were obtained. COMPARISON: 07/07/2023 FINDINGS: The left common femoral vein, profunda femoral vein, femoral vein, popliteal vein, peroneal trunk, posterior tibial veins, and greater saphenous vein are patent. A Mark's cyst is again noted in the left popliteal fossa. IMPRESSION: 1. Patent left lower extremity veins. No evidence of deep venous thrombosis. Reviewed, dictated and finalized at location L. [facility]
[2023-07-12 13:06] VITALS: BP 110/60; PULSE 99; RESP 20; TEMP 36.1; O2SAT 99
--- NOTE | 2023-07-12 14:15 | ED.EXTPRO ---
HPI - Extremity Problem General Chief complaint: Extremity Injury, Lower Stated complaint: swelling left leg Time Seen by Provider: 07/12/23 14:15 MSE performed at 1415 Focused HPI: Beena is a 77-year-old female patient presenting to the ER today for left lower extremity swelling and pain. Reports that she was seen by the home health nurse today and she had redness and swelling to the lateral knee and they were concerned so they sent her into the emergency room. Left total knee arthroplasty surgery was completed by Dr. Padron 1 week ago. He has come down to see the patient at the time the MSE was performed. Would like to have a venous ultrasound ordered. He does not feel as though the wound is infected and thinks this may be more likely a hematoma. Patient is reporting some chills but without known fever. Temperature was 36.1? degrees C in the ER initially. Dr. Padron cleansed the wound with alcohol and reapplied dressing General: Well-developed, obese, in no apparent distress Head: Normocephalic, atraumatic. Cardio: Regular rate and rhythm, s1 and s2 normal, no murmur appreciated. Resp: Clear to auscultation bilaterally, no rhonchi, rales, wheezing or rubs. Musculoskeletal: No deformity, wound well-approximated to the left knee with dried bloody discharge. No obvious purulent discharge coming from the wound, swelling with 1+ pitting edema to the left lower extremity with redness and swelling noted to the lateral knee along the surgical wound. Area is mildly warm to touch when compared to the rest of her leg, tender to palpation over the lateral knee, grossly normal range of motion without much pain, muscle strength strong and equal, peripheral pulse strong, no edema, no cyanosis, normal gait and station Patient screened in triage and initial orders placed. Additional care and disposition to be based upon diagnostic testing and treatment. Source: patient Mode of arrival: ambulatory Limitations: no limitations Related Data Home Medications Medication Instructions Recorded Confirmed atorvastatin 20 mg tablet 20 mg PO DAILY 04/30/19 07/05/23 carboxymethylcellulose sodium 0.5 1 drop ophthalmic (eye) BID PRN 04/30/19 07/05/23 % eye drops (Refresh Tears) Dry Eye(S) fluoxetine 20 mg capsule 20 mg PO DAILY 04/30/19 07/05/23 lisinopril 5 mg tablet 5 mg PO HS 04/30/19 07/05/23 cholecalciferol (vitamin D3) 25 1,000 unit PO DAILY 08/11/20 07/05/23 mcg (1,000 unit) tablet (Vitamin D3) pantoprazole 40 mg tablet,delayed 40 mg PO DAILY 08/11/20 07/05/23 release vit C 250 mg-vit E 200 unit-zinc 1 cap PO BID 08/11/20 07/05/23 ox 12.5 fl-kbhkou-rxdffd-zeax capsule (ICaps AREDS2) buspirone 5 mg tablet 5 mg PO BID 01/03/23 07/05/23 cyclosporine 0.05 % eye drops in a 1 drp EACH EYE Q12H 01/03/23 07/05/23 dropperette furosemide 20 mg tablet 20 mg PO QAM PRN Edema 01/03/23 07/05/23 ondansetron 4 mg disintegrating 4 mg PO Q6H PRN Nausea 01/03/23 07/05/23 tablet potassium chloride 20 mEq 20 meq PO PRN PRN WHEN TAKES LASIX 01/03/23 07/05/23 tablet,extended release magnesium 250 mg tablet 250 mg PO DAILY 06/06/23 07/05/23 turmeric 400 mg capsule 400 mg PO BID 06/06/23 07/05/23 acetaminophen 500 mg capsule 1,000 mg PO Q6H PRN Pain 06/23/23 07/05/23 cetirizine 10 mg tablet (Zyrtec) 10 mg PO DAILY 06/23/23 07/05/23 vitamin B complex 1 cap PO DAILY 06/23/23 07/05/23 Allergies Allergy/AdvReac Type Severity Reaction Status Date / Time Nickel allergy Allergy Unknown Itching Uncoded 07/05/23 16:59 Review of Systems Review of Systems: Pertinent positives per HPI. Patient denies any fever, chills, rash, headache, visual changes, dizziness, cough, runny nose, sore throat, shortness of breath, chest pain, palpitations, nausea, vomiting, diarrhea, constipation, abdominal pain, or any urinary issues. [facility] Past Medical History Medical History Degenerative joint d
[2023-07-12 16:24] VITALS: BP 136/88; PULSE 84; RESP 18; TEMP 36.6; O2SAT 98
== END 2023-07-12 16:42 | disposition home or self-care (01) ==
LOC: ANHED 16:35
PROVIDERS: Emergency Provider Nurse Practitioner Family; PCP Internal Medicine
DX: R60.0 Localized edema (principal); I10 Essential (primary) hypertension; E78.00 Pure hypercholesterolemia, unspecified; M17.9 Osteoarthritis of knee, unspecified; M19.019 Primary osteoarthritis, unspecified shoulder; Z96.659 Presence of unspecified artificial knee joint; Z87.891 Personal history of nicotine dependence; Z90.710 Acquired absence of both cervix and uterus; Z79.82 Long term (current) use of aspirin
CPT/HCPCS: 93971; 99284

== ENCOUNTER 2023-08-17 13:26 | Outpatient (CLI) | payer MEDICARE, BC, SELFPAY ==
--- NOTE | ~2023-08-17 | MR_ITS ---
EXAMINATION: MR shoulder RT wo con DATE: 08/17/2023 14:10 INDICATION: 6-8 months of right shoulder pain TECHNIQUE: Magnetic resonance imaging (MRI) of the right shoulder was performed without intravenous c ontrast. Sequences included axial PD-weighted FS FSE, coronal oblique PD-weighted FS FSE, coronal obl ique T2-weighted FS FSE, sagittal PD-weighted FS FSE, and sagittal T1-weighted SE. COMPARISON: None. FINDINGS: Coracoacromial arch: The acromion undersurface is flat in morphology (type I). The coracoacromial ligament is normal. Mode rate to severe acromioclavicular osteoarthritis. Rotator cuff: Moderate infraspinatus and mild supraspinatus tendinopathy. There is a full-thickness tear of the ronnie ority of the supraspinatus and infraspinatus tendons which measures approximately 2.5 cm AP along the superior and middle facet footplates of the tendon. A small portion of the anterior most supraspinat us tendon and the posterior third of the infraspinatus tendon remain intact. The tear margin is retra cted approximately 1.3 cm medially positioned along the level of the lateral rim of the acromion. The subscapularis and teres minor tendons are normal. Rotator cuff muscle bulk and signal remain normal. Biceps tendon, glenoid labrum and glenohumeral cartilage: Long head of the biceps tendon is not visualized and likely torn and retracted below level of the int ertubercular groove. There is a tear of the 1:00-11:30 position of the superior glenoid labrum. The r emainder of the glenoid labrum is normal. There is mild partial-thickness cartilage loss with smooth chondral surface along the apex of the humeral head. Glenohumeral cartilage is otherwise preserved. Fluid: Small glenohumeral joint effusion with extension of a small amount of fluid through the full-thicknes s rotator cuff tear defect to indicate with a small amount of fluid in the subacromial/subdeltoid bur sa. No loose osteochondral bodies. Bones: Bone alignment is normal. No fracture or pathologic marrow replacing process. Mild cystic change the lesser tuberosity and along the medial facet of the greater tuberosity. IMPRESSION: 1. Moderate infraspinatus and mild supraspinatus tendinopathy with moderate-sized full-thickness tear extending 2.5 cm AP along the superior and middle facet footplates of the tendons and 1.3 cm medial to lateral. 2. Mild glenohumeral osteoarthritis with tear at the superior glenoid labrum. 3. Full-thickness avulsion of the long head biceps tendon from its glenoid anchor which is retracted below the inferior margin of the sijqo-yc-jurn. 4. 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 Reviewed, dictated and finalized at location B. IMPRESSION: 1. Moderate infraspinatus and mild supraspinatus tendinopathy with moderate-siz ed full-thickness tear extending 2.5 cm AP along the superior and middle facet footplates of the tendons and 1.3 cm medial to lateral. 2. Mild glenohumeral osteoarthritis with tear at the superior glenoid labrum. 3. Full-thickness avulsion of the long head biceps tendon from its glenoid anch or which is retracted below the inferior margin of the llnru-am-kxte. 4. 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
== END 2023-08-17 13:27 ==
LOC: MICIMG 13:27
PROVIDERS: PCP Internal Medicine; Visit Provider Orthopaedic Surgery
DX: G89.29 Other chronic pain (principal); M25.511 Pain in right shoulder; M75.80 Other shoulder lesions, unspecified shoulder; M77.8 Other enthesopathies, not elsewhere classified; M19.011 Primary osteoarthritis, right shoulder; S46.111A Strain of muscle, fascia and tendon of long head of biceps, right arm, initial encounter
CPT/HCPCS: 73221

== ENCOUNTER 2023-09-13 14:15 | Outpatient (CLI) | payer MEDICARE, BC, SELFPAY ==
[2023-09-13 14:51] LABS: Anion Gap 6 mmol/L (4-12); Blood Urea Nitrogen 19 mg/dL (7-17); Calcium 9.4 mg/dL (8.4-10.2); Carbon Dioxide 30 mmol/L (22-30); Chloride 102 mmol/L (98-107); Estimated Glomerular Filt Rate > 60; Glucose 98 mg/dL (65-110); Potassium 4.2 mmol/L (3.4-5.0); Sodium 138 mmol/L (137-145)
== END 2023-09-13 14:16 | disposition home or self-care (01) ==
LOC: ANHSURGERY 14:21
PROVIDERS: Anesthesiology; PCP Internal Medicine; Visit Provider Orthopaedic Surgery
DX: Z01.818 Encounter for other preprocedural examination (principal); R60.9 Edema, unspecified
CPT/HCPCS: 36415; 80048

== ENCOUNTER 2023-09-17 07:57 | Outpatient (CLI) | payer MEDICARE, BC, SELFPAY ==
--- NOTE | ~2023-09-17 | XR_ITS ---
XR pelvis min 3V DATE: 09/17/2023 08:23 INDICATION: Sacroiliitis. Low back pain radiating to lower extremities TECHNIQUE: AP and bilateral oblique views of the pelvis COMPARISON: None FINDINGS: Normal alignment of the pubic symphysis and sacroiliac joints. No erosion or ankylosis of t he sacroiliac joints. No pelvic fracture or bone destruction. There is levoscoliosis and multilevel degenerative disc disease of the lumbar spine. IMPRESSION: No significant abnormality cigarette joints Levoscoliosis and multilevel degenerative disc disease of the lumbar spine Reviewed, dictated and finalized at location A.
== END 2023-09-17 07:58 | disposition home or self-care (01) ==
PROVIDERS: PCP Internal Medicine; Visit Provider Physical Medicine & Rehabilitation Pain Medicine
DX: M46.1 Sacroiliitis, not elsewhere classified (principal); M51.36 Other intervertebral disc degeneration, lumbar region
CPT/HCPCS: 72190

== ENCOUNTER 2023-09-21 01:05 | Day surgery (SDC) | payer MEDICARE, BC, SELFPAY ==
--- NOTE | 2023-09-12 14:50 | PC.NURSE ---
Report to the Outpatient Waiting Room, entrance under the green pavilion located off [facility], at time _8:30 AM on date _09/21/23 . Planned Procedure Time: __1030 . Time changes happen often and if your time is changed the preop area will call you the afternoon before. - You and your visitor will be asked to self-screen and do not enter if you have any COVID symptoms. - A mask is optional within the hospital at this time. Patients may have clear liquids (water, carbonated beverages, clear teas, apple juice) until 3 hours prior to surgery( 7:30 AM)with a maximum of 20 ounces. - No food from midnight until time of surgery - Infants may have breast milk until 4 hours before surgery, infant formula 6 hours prior to surgery. - Children will be allowed to drink immediately following surgery. If applicable, please bring a bottle or sippy cup to assist with drinking. Juice, water, soda, and popsicles are readily available. For infants on formula, please bring formula the day of surgery. Pacifiers are allowed. Take the following medications with a SIP of water the morning of surgery: _TRELEGY ELLIPTA, EYE DROPS,FLUOXETINE DO NOT STOP ANY OF YOUR OTHER PRESCRIPTION MEDICATIONS PRIOR TO SURGERY ?EXCEPT THE FOLLOWING Medications to discontinue per physician ___ALL VITAMINS AND SUPPLEMENTS 3 DAYS PRE OP .LAST DOSE 09/17/23 Please no make-up, nail kiswahili, hairspray, perfume, deodorant, or body powder the day of surgery. No jewelry (including any body piercings) or valuables the day of surgery, leave them at home. Please take a shower or bath the night before, or the morning of, surgery with an antibacterial soap. Wear comfortable, loose fitting clothing. Children are encouraged to wear pajamas. - Jewelry must be removed prior to entering the operating room. Rings and piercings that are not removed may be cut off. - The hospital will not accept responsibility for valuables. - Please leave all valuables, including medications, at home the day of surgery. If you are going home after surgery, a licensed route driver must drive you home. - NO public transportation without another adult if you receive anesthesia. - We recommend that an adult stay with you for 24 hours following discharge. - We also recommend that you do not drive, make important decision, drink alcoholic beverages, or take any drugs that were not prescribed by your health care provider for at least 24 hours after your discharge time Follow any additional instructions given to you from your surgeon. If you or anyone in your household have experienced Covid symptoms in the past week, please notify your surgeon or the nurse liaison at the phone number below for possible testing. Telephone instructions given to __PATIENT and asked if any additional questions and then verbalized understanding. Patient advised to call surgeon office or pre surgery nurse liaison [phone] if any additional questions.
[2023-09-12 15:02] VITALS: BMI 33.1
[2023-09-21] VITALS (10 sets, daily range): BP systolic 114–141; BP diastolic 50–86; PULSE 86–109; RESP 13–18; TEMP 36.1–36.7; O2SAT 95–100; BMI 32.7
[2023-09-21] MEDS: ACETAMINOPHEN 500 MG TABLET 1000 MG PO (06:31)
[2023-09-21] MEDS: CELECOXIB 200 MG CAPSULE PO (06:31)
--- NOTE | 2023-09-21 07:02 | WPDANESEPPF ---
Anes - Initial Pre Proc Eval Procedure: Operation Date: 09/21/23 07:30 Proposed Procedures p Right Rotator Cuff Repair with Distal Clavicle Excision - Heath Padron MD Date/Time: 09/21/23 07:02 Surgeon: Heath Padron MD Pre Op Diagnosis: rt rot cuff tear, ac joint djd Patient Data Age: 78 Gender: F Height: 1.5 m Weight: 73.45 kg Last Vital Signs Temp 98.1 F 09/21/23 06:39 Pulse 86 09/21/23 06:39 Resp 16 09/21/23 06:39 BP 124/86 09/21/23 06:39 Pulse Ox 96 09/21/23 06:39 O2 Del Method Room Air 09/21/23 06:39 Allergies Allergy/AdvReac Type Severity Reaction Status Date / Time Nickel allergy Allergy Unknown Itching Uncoded 09/12/23 14:36 Home Medications Medication Instructions Recorded Confirmed Type atorvastatin 20 mg tablet 20 mg PO DAILY 04/30/19 09/12/23 History carboxymethylcellulose sodium 0.5 1 drop ophthalmic (eye) BID PRN 04/30/19 09/12/23 History % eye drops (Refresh Tears) Dry Eye(S) fluoxetine 20 mg capsule 20 mg PO DAILY 04/30/19 09/12/23 History lisinopril 5 mg tablet 5 mg PO HS 04/30/19 09/12/23 History cholecalciferol (vitamin D3) 25 1,000 unit PO DAILY 08/11/20 09/21/23 History mcg (1,000 unit) tablet (Vitamin D3) pantoprazole 40 mg tablet,delayed 40 mg PO DAILY 08/11/20 09/12/23 History release vit C 250 mg-vit E 200 unit-zinc 1 cap PO BID 08/11/20 09/21/23 History ox 12.5 hq-taceqz-ptqhbd-zeax capsule (ICaps AREDS2) buspirone 5 mg tablet 5 mg PO BID 01/03/23 09/12/23 History cyclosporine 0.05 % eye drops in a 1 drp EACH EYE Q12H 01/03/23 09/12/23 History dropperette furosemide 20 mg tablet 20 mg PO QAM PRN Edema 01/03/23 09/21/23 History ondansetron 4 mg disintegrating 4 mg PO Q6H PRN Nausea 01/03/23 09/12/23 History tablet potassium chloride 20 mEq 20 meq PO PRN PRN WHEN TAKES LASIX 01/03/23 09/21/23 History tablet,extended release Ventolin HFA 90 mcg/actuation See Rx Instructions .Route 03/30/23 09/12/23 Rx aerosol inhaler (albuterol sulfate) .COMPLEX #18 grams montelukast 10 mg tablet 10 mg PO QHS #30 tabs 04/18/23 09/12/23 Rx acetaminophen 500 mg capsule 1,000 mg PO Q6H PRN Pain 06/23/23 09/12/23 History cetirizine 10 mg tablet (Zyrtec) 10 mg PO DAILY 06/23/23 09/12/23 History vitamin B complex 1 cap PO DAILY 06/23/23 09/21/23 History hydrocodone 5 mg-acetaminophen 325 1 tablet PO Q6H PRN pain #20 tabs 08/09/23 09/12/23 Rx mg tablet Trelegy Ellipta 100 mcg-62.5 See Rx Instructions .Route 09/05/23 09/12/23 Rx mcg-25 mcg powder for inhalation .COMPLEX #60 ea (clobqnpkcmy-fdbljrtom-uoxvbstl) benzoyl peroxide 5 % topical gel 1 applic topical DAILY #42.5 grams 09/06/23 09/12/23 Rx clindamycin phosphate 1 % topical 1 applic topical DAILY #30 grams 09/06/23 09/12/23 Rx gel ropinirole 0.25 mg tablet 0.25 mg PO HS 09/12/23 09/12/23 History Patient hx anesthesia problems: post op nausea/vomiting Family hx anesthesia problems: none Results Review: All pre-operative results and documents have been reviewed as part of the pre-operative evaluation. [facility] Past Medical History Medical History Degenerative joint disease of knee Diabetes DJD of AC (acromioclavicular) joint High cholesterol HTN (hypertension) Right shoulder pain Rotator cuff tear Rotator cuff tendonitis Trochanteric bursitis, right hip Surgical History Surgical History H/O hernia repair H/O: hysterectomy History of laparoscopic appendectomy S/P total knee arthroplasty Status post total left knee replacement DOS 07/05/2023 Family History Family History Mother Family history of coronary artery disease Family history of lung disease Sibling Family history of cardiovascular disease Family history of chronic obstructive pulmonary disease Family history of tip
--- NOTE | 2023-09-21 07:21 | WPDHPUPDATE1 ---
History and Physical Update Update Date/Time: 09/21/23 07:21 History and Physical has been reviewed, including an updated exam of the patient. There are NO changes in the patient's condition. Risks, benefits, and alternatives have been discussed and questions answered. Patient agrees to proceed with procedure.
[2023-09-21] MEDS: ceFAZolin 2 GM/D5W 50 ML 2 GM/50 ML BAG IVPB (07:30)
[2023-09-21] MEDS: LACTATED RINGERS 1,000 ML 30 ML IV CONT ×2 (07:44→09:42)
[2023-09-21] MEDS: BUPIVACAINE/EPINEPHRINE 0.5% 10 ML VIAL 30 ML INFILTRATE (08:03)
--- NOTE | 2023-09-21 09:28 | W.PM.PROC2 ---
Procedure Note - Detailed Date of Procedure 09/21/23 Pre-op Diagnosis RIGHT FULL THICKNESS ROTATOR CUFF TEAR WITH SEVERE AC JOINT DJD Post-op Diagnosis Same Procedure Performed REPAIR RIGHT ROTATOR CUFF WITH DCE Surgeon Heath Padron MD Anesthesia General Description of Procedure THE PATIENT WAS TAKEN TO THE OPERATING ROOM AND THEN INTUBATED AND PLACED IN THE BEACH CHAIR POSITION. THE RIGHT UPPER EXTREMITY WAS PREPPED AND DRAPED IN THE NORMAL STERILE FASHION. AN INCISION WAS MADE IN BETWEEN THE SIM-LATERAL ACROMION AND THE AC JOINT. THE AC JOINT WAS INCISED. THERE WAS SEVERE DJD TO THE AC JOINT. A DISTAL CLAVICLE EXCISION WAS PREFORMED REMOVING APPROXIMATELY LESS THAN 1 CM OF BONE FROM THE DISTAL CLAVICLE. THE WOUND WAS WASHED AND THE CAPSULE WAS REPAIRED WITH 0 VICRYL. THE FASCIA WAS IDENTIFIED. NEXT A MINI OPEN INCISION WAS MADE THROUGH THE DELTOID MUSCLE EXPOSING THE SUBACROMIAL SPACE. A LIMITED ACROMIOPLASTY WAS PREFORMED. THE ROTATOR CUFF WAS IDENTIFIED. THERE WAS A FULL THICKNESS TEAR. IT MEASURED APPROXIMATELY 3 CM X 2 CM. THE GREATER TUBEROSITY WAS DEBRIDED TO BLEEDING BONE. 3 ARTHREX 5.5 SUTURE ANCHORS WERE PLACED IN TO GOOD BONE AND HAD VERY GOOD BITES. YANIRA-ADITYA TYPE REPAIRS WERE DONE TO THE ROTATOR CUFF AND THERE WAS GOOD APPROXIMATION TO THE GREATER TUBEROSITY. THE REPAIR WAS EXCELLENT. THERE WAS NO IMPINGEMENT ON THE REPAIR FROM THE ACROMION WITH RANGE OF MOTION. THE WOUND WAS IRRIGATED WITH COPIOUS AMOUNTS OF ANTIBIOTIC SOLUTION, PEROXIDE AND WATER AND BETADINE AND WATER. THE DELTOID MUSCLE WAS REPAIRED WITH #2 FIBER WIRE AND 0 VICRYL SUTURE. THE SUBCUTANEOUS LAYER WAS APPROXIMATED WITH 2-0 VICRYL. THE SKIN WAS APPROXIMATED WITH 3-0 QUIL AND DERMABOND. STERILE DRESSING WAS APPLIED. PATIENT WAS EXTUBATED. Estimated Blood Loss -20.0 Complications No immediate complications Condition Stable Disposition PACU
[2023-09-21] MEDS: fentaNYL CITRATE INJ (*CRX) 100 MCG/2 ML VIAL 25 MCG IV PUSH ×2 (10:32→10:38)
[2023-09-21] MEDS: oxyCODONE HCL (*CRX) 5 MG TAB IR PO (11:46)
== END 2023-09-21 11:55 | disposition home or self-care (01) ==
PROVIDERS: PCP Internal Medicine; Visit Provider Orthopaedic Surgery
PROC: (CPT 23420; principal; 2023-09-21 07:30)
DX: M75.121 Complete rotator cuff tear or rupture of right shoulder, not specified as traumatic (principal); I10 Essential (primary) hypertension; E11.9 Type 2 diabetes mellitus without complications; Z87.891 Personal history of nicotine dependence; E78.00 Pure hypercholesterolemia, unspecified; Z79.51 Long term (current) use of inhaled steroids; E66.9 Obesity, unspecified; Z68.32 Body mass index [BMI] 32.0-32.9, adult
CPT/HCPCS: 23412; 23120; A9270; C1713; J0330; J0690; J1100; J1170; J2250; J2405; J2704; J3010; J7120

== ENCOUNTER 2024-01-12 12:56 | Outpatient (CLI) | payer MEDICARE, BC, SELFPAY ==
[2024-01-12 14:20] LABS: Anion Gap 5 mmol/L (4-12); Blood Urea Nitrogen 22 mg/dL (7-17); Carbon Dioxide 32 mmol/L (22-30); Chloride 100 mmol/L (98-107); Estimated Glomerular Filt Rate > 60; Glucose 90 mg/dL (65-110); Potassium 4.5 mmol/L (3.4-5.0); Sodium 137 mmol/L (137-145)
== END 2024-01-12 12:57 | disposition home or self-care (01) ==
PROVIDERS: Anesthesiology; PCP Internal Medicine; Visit Provider Plastic Surgery
DX: Z01.818 Encounter for other preprocedural examination (principal); Z51.81 Encounter for therapeutic drug level monitoring
CPT/HCPCS: 36415; 80048

== ENCOUNTER 2024-01-18 01:56 | Day surgery (SDC) | payer MEDICARE, BC, SELFPAY ==
[2024-01-12 08:39] VITALS: BMI 34.2
--- NOTE | 2024-01-12 09:21 | PC.NURSE ---
Report to the Outpatient Waiting Room, entrance under the green pavilion located off [facility], at time _9:30AM_ on date _01/18/24__. Planned Procedure Time: __11:30AM .? Time changes happen often and if your time is changed the preop area will call you the afternoon before. - You and your visitor will be asked to self-screen and do not enter if you have any COVID symptoms. Please call surgeon if you need to reschedule. - A mask is optional within the hospital at this time. Patients may have clear liquids (water, carbonated beverages, clear teas, apple juice) until 8 hours prior to surgery with a maximum of 20 ounces. - No food from midnight until time of surgery and no smoking. - Take only the following medications with a SIP of water on the morning of surgery: BUSPIRONE, FLUOXETINE, TRELEGY ELLIPTA INHALER, MORNING EYE DROPS. MAY USE VENTOLIN INHALER NEEDED. DO NOT STOP ANY OF YOUR OTHER PRESCRIPTION MEDICATIONS PRIOR TO SURGERY EXCEPT THE FOLLOWING Medications to discontinue per physician ___HOLD ALL VITAMINS/SUPPLEMENTS 3 DAYS PRE-OP PER ANESTHESIA. Date to take last dose 01/14/24 Please no make-up, nail costa rican, hairspray, perfume, deodorant, or body powder the day of surgery.? No jewelry (including any body piercings) or valuables the day of surgery, leave them at home.? Please take a shower or bath the night before, or the morning of, surgery with an antibacterial soap.? Wear comfortable, loose fitting clothing.? - Jewelry must be removed prior to entering the operating room.? Rings and piercings that are not removed may be cut off. - The hospital will not accept responsibility for valuables.? - Please leave all valuables, including medications, at home the day of surgery. If you are going home after surgery, a licensed class b truck driver must drive you home.? - NO public transportation without another adult if you receive anesthesia. - We recommend that an adult stay with you for 24 hours following discharge. - We also recommend that you do not drive, make important decision, drink alcoholic beverages, or take any drugs that were not prescribed by your health care provider for at least 24 hours after your discharge time. Follow any additional instructions given to you from your surgeon. Telephone instructions given to ____PATIENT and asked if any additional questions and then verbalized understanding. Patient advised to call surgeon office or pre surgery nurse liaison [phone] if any additional questions.
--- NOTE | 2024-01-18 07:13 | PM.HPGS ---
History of Present Illness History of Present Illness Chief complaint: Dupuytren's and trigger fingers right hand Narrative: Patient seen and examined in pre-operative holding area. No interval change in medical history or symptoms. Patient recalls previous discussion of benefits and alternatives to procedure. Continues to desire to proceed with right middle and ring finger fasciectomy and A1 prosper release. Reviewed procedure, post-op expectations and risks including but not limited to bleeding, infection, injury to tendon/nerve/vessel, decreased hand function, stiffness, RSD, no change or worsening of symptoms, recurrence, incomplete release. I discussed the possible use of assistants and their participation in the case. Patient stated understanding and signed the consent form wishing to proceed. Review of Systems Review of Systems: All systems reviewed & are unremarkable except as noted in HPI and below PMFSH Past Medical History Medical History Degenerative joint disease of knee Diabetes DJD of AC (acromioclavicular) joint High cholesterol HTN (hypertension) Right shoulder pain Rotator cuff tear Rotator cuff tendonitis Trochanteric bursitis, right hip Surgical History Surgical History H/O hernia repair H/O: hysterectomy History of laparoscopic appendectomy S/P total knee arthroplasty Status post total left knee replacement DOS 07/05/2023 Family History Family History Mother Family history of coronary artery disease Family history of lung disease Sibling Family history of cardiovascular disease Family history of chronic obstructive pulmonary disease Family history of congestive heart failure Alcoholism Hypertension Depression Heart disease Father Family history of chronic obstructive pulmonary disease Social History Social History Smoking packs per day: 1 Smoking cigarettes per day: 20.0 Years smoked: 15 Smoking pack-years: 15.00 Smoking status: Former smoker Tobacco type: cigarettes Second hand tobacco smoke exposure: No Smoking end date: 05/09/85 Additional smoking assessment comments: DENIES ANY FORM OF TOBACCO USE Alcohol intake: never Drinks per week: 7 Alcohol use details: WINE Substance use: never Substance use type: does not use Do You Feel Safe in your Home?: Yes Lack of Transportation: No Lack of Food: Never True Current Housing: I Have Housing Concerned About Future Housing: No Difficulty Paying Gas/Electric Bills: No Difficulty Paying for Meds: No Currently Unemployed: No Education: Associate Degree Difficulty w/ Childcare or Family Care: No Living arrangements: with family Additional living arrangements comments: SP[facility]SE Spiritual care concerns: No Meds Home Medications and Allergies Home Medications Medication Instructions Recorded Confirmed Type atorvastatin 20 mg tablet 20 mg PO DAILY 04/30/19 01/12/24 History carboxymethylcellulose sodium 0.5 1 drop ophthalmic (eye) BID PRN 04/30/19 01/12/24 History % eye drops (Refresh Tears) Dry Eye(S) fluoxetine 20 mg capsule 20 mg PO DAILY 04/30/19 01/12/24 History lisinopril 5 mg tablet 5 mg PO HS 04/30/19 01/12/24 History cholecalciferol (vitamin D3) 25 1,000 unit PO DAILY 08/11/20 01/12/24 History mcg (1,000 unit) tablet (Vitamin D3) pantoprazole 40 mg tablet,delayed 40 mg PO DAILY 08/11/20 01/12/24 History release vit C 250 mg-vit E 200 unit-zinc 1 cap PO BID 08/11/20 01/12/24 History ox 12.5 fz-gjxtni-dhqzpa-zeax capsule (ICaps AREDS2) buspirone 5 mg tablet 5 mg PO BID 01/03/23 01/12/24 History cyclosporine 0.05 % eye drops in a 1 drp EACH EYE Q12H 01/03/23 01/12/24 History dropperette furosemide 20 mg tablet 20 mg PO QAM PRN E
--- NOTE | 2024-01-18 07:13 | W.PM.PROC2 ---
Procedure Note - Detailed Date of Procedure 01/18/24 Pre-op Diagnosis right middle and ring Dupuytren's contracture and trigger finger Post-op Diagnosis Same Procedure Performed right middle and ring finger fasciectomy and as prosper release Surgeon Rama Cash MD Lead Programmer armen fernandes pa-c Anesthesia MAC Description of Procedure INFORMED CONSENT: The patient was seen and examined and marked in the pre-op area.? The patient signed the consent form. PROCEDURE IN DETAIL:The patient taken back to OR on the stretcher in supine position. Time out performed with anesthesia, surgeon and staff agreeing on patient's name site and surgery to be performed SCDs were placed on the lower extremities and inflated. A tourniquet was placed on {right} upper extremity and antibiotics given IV After anesthesia administered sedation I injected {8}cc 1%lidoand 0.5% marcaine plain at the operative site The?{right upper extremity}?was prepped and draped in sterile fashion the??{right upper extremity} was? exsanguinated with Esmarch bandage and tourniquet inflated to 250mmHg I took my attention to the right middle finger where I used 15 blade scalpel to make an incision in the palm near the origin of the dypuytrens cord through skin and dermis. I elevated skin flaps to expose the cord. Littler scissors were used to circumferentially dissect around the cord proximally and then I transected it with 15 blade scalpel. I proceeded with anterograde dissection of the cord and completed the fasciectomy noting the middle finger now achieved full extnesion despite some stiffness from MPJ subluxation. Next I spred through subq down to a1 prosper. I incised the A1 prosper initially with 15 blade then used littler scissors to spread above and below it proximally and distally and completed the transection. Ragnell retractors were used to withdraw the FDS nd FDP tendons noting they had mild synovitis which was stripped off and now gliding smoothly in the sheath without triggering or crepitus. I next took my attention to the right ring finger. I used 15 blade scalpel to make an incision in the palm near the origin of the dypuytrens cord through skin and dermis. I elevated skin flaps to expose the cord. Littler scissors were used to circumferentially dissect around the cord proximally and then I transected it with 15 blade scalpel. I proceeded with anterograde dissection of the cord and completed the fasciectomy noting the middle finger now achieved full extnesion despite some stiffness from MPJ subluxation. Next I spred through subq down to a1 prosper. I incised the A1 prosper initially with 15 blade then used littler scissors to spread above and below it proximally and distally and completed the transection. Ragnell retractors were used to withdraw the FDS and FDP tendons noting they had mild synovitis which was stripped off and now gliding smoothly in the sheath without triggering or crepitus. I irrigated with normal saline and closure with 4-0 chromic. A dressing of xeroform, 4x4, todd, and a volar splint was applied for patient safety, security, and comfort and secured with an valentina bandage after the tourniquet was let down noting the hand was warm and well perfused. The patient was then awaken from anesthesia and transferred to the recovery room in stable condition.? Complications - none EBL- 0cc Disposition - home in stable conditions Armen Fernandes PA-C was essential for positioinng, retraction, closure and dressing placement G Billing Surgery - Charge Forward: Surgery Billing ([id number] same for armen adding modifier )
[2024-01-18 10:30] VITALS: BP 126/72; PULSE 78; RESP 14; TEMP 36.5; O2SAT 98
--- NOTE | 2024-01-18 11:31 | WPDANESEPPF ---
Anes - Initial Pre Proc Eval Procedure: Operation Date: 01/18/24 11:30 Proposed Procedures p Right Middle and Ring Finger Fasciectomy and A-1 Joshua Release - Rama Cash MD Date/Time: 01/18/24 11:31 Surgeon: Rama Cash MD Pre Op Diagnosis: Dupuytren's and trigger fingers right hand Patient Data Age: 78 Gender: F Height: 1.5 m Weight: 76.2 kg Last Vital Signs Temp 36.5 C 01/18/24 10:30 Pulse 78 01/18/24 10:30 Resp 14 01/18/24 10:30 BP 126/72 01/18/24 10:30 Pulse Ox 98 01/18/24 10:30 O2 Del Method Room Air 01/18/24 10:30 Allergies Allergy/AdvReac Type Severity Reaction Status Date / Time Nickel allergy AdvReac Unknown Itching, Uncoded 01/18/24 11:08 RASH Home Medications Medication Instructions Recorded Confirmed Type atorvastatin 20 mg tablet 20 mg PO DAILY 04/30/19 01/12/24 History carboxymethylcellulose sodium 0.5 1 drop ophthalmic (eye) BID PRN 04/30/19 01/12/24 History % eye drops (Refresh Tears) Dry Eye(S) fluoxetine 20 mg capsule 20 mg PO DAILY 04/30/19 01/12/24 History lisinopril 5 mg tablet 5 mg PO HS 04/30/19 01/12/24 History cholecalciferol (vitamin D3) 25 1,000 unit PO DAILY 08/11/20 01/12/24 History mcg (1,000 unit) tablet (Vitamin D3) pantoprazole 40 mg tablet,delayed 40 mg PO DAILY 08/11/20 01/12/24 History release vit C 250 mg-vit E 200 unit-zinc 1 cap PO BID 08/11/20 01/12/24 History ox 12.5 qv-cqbkhg-xqxxgr-zeax capsule (ICaps AREDS2) buspirone 5 mg tablet 5 mg PO BID 01/03/23 01/12/24 History cyclosporine 0.05 % eye drops in a 1 drp EACH EYE Q12H 01/03/23 01/12/24 History dropperette furosemide 20 mg tablet 20 mg PO QAM PRN Edema 01/03/23 01/12/24 History ondansetron 4 mg disintegrating 4 mg PO Q6H PRN Nausea 01/03/23 01/12/24 History tablet potassium chloride 20 mEq 20 meq PO PRN PRN WHEN TAKES LASIX 01/03/23 01/12/24 History tablet,extended release Ventolin HFA 90 mcg/actuation See Rx Instructions .Route 03/30/23 01/12/24 Rx aerosol inhaler (albuterol sulfate) .COMPLEX #18 grams montelukast 10 mg tablet 10 mg PO QHS #30 tabs 04/18/23 01/12/24 Rx acetaminophen 500 mg capsule 1,000 mg PO Q6H PRN Pain 06/23/23 01/12/24 History cetirizine 10 mg tablet (Zyrtec) 10 mg PO DAILY 06/23/23 01/12/24 History vitamin B complex 1 cap PO DAILY 06/23/23 01/12/24 History Trelegy Ellipta 100 mcg-62.5 See Rx Instructions .Route 09/05/23 01/12/24 Rx mcg-25 mcg powder for inhalation .COMPLEX #60 ea (kpfnabnwxsy-ztdueezdl-kfhegkca) ropinirole 0.25 mg tablet 0.25 mg PO HS 09/12/23 01/12/24 History amoxicillin 500 mg capsule 500 mg PO ONCE #4 caps 01/04/24 01/12/24 Rx tramadol 50 mg tablet 50 mg PO Q6H PRN pain #12 tabs 01/18/24 Rx Patient hx anesthesia problems: post op nausea/vomiting Family hx anesthesia problems: none Results Review: All pre-operative results and documents have been reviewed as part of the pre-operative evaluation. [facility] Past Medical History Medical History Degenerative joint disease of knee Diabetes DJD of AC (acromioclavicular) joint High cholesterol HTN (hypertension) Right shoulder pain Rotator cuff tear Rotator cuff tendonitis Trochanteric bursitis, right hip Surgical History Surgical History H/O hernia repair H/O: hysterectomy History of laparoscopic appendectomy S/P total knee arthroplasty Status post total left knee replacement DOS 07/05/2023 Family History Family History Mother Family history of coronary artery disease Family history of lung disease Sibling Family history of cardiovascular disease Family history of chronic obstructive pulmonary disease Family history of congestive heart failure Alcoholism Hypertension Depression Heart disease Father Family history of chronic obstructive
[2024-01-18] MEDS: ceFAZolin 2 GM/D5W 50 ML 2 GM/50 ML BAG IVPB (12:21)
[2024-01-18] MEDS: LIDOCAINE HCL 1% LOCAL INJ 20 ML VIAL 10 ML INFILTRATE (12:46)
[2024-01-18] MEDS: LIDO 1%/EPINEPHRINE 1:100,000 20 ML VIAL 10 ML INFILTRATE (12:47)
[2024-01-18] MEDS: BACITRACIN OINTMENT 15 GM TUBE 1 APPLIC TOPICAL (12:48)
[2024-01-18 12:55] VITALS: BP 112/51; PULSE 76; RESP 12
[2024-01-18] MEDS: LACTATED RINGERS 1,000 ML 30 ML IV CONT (12:55)
[2024-01-18 13:25] VITALS: BP 131/71; PULSE 76; RESP 20
[2024-01-18 13:40] VITALS: BP 130/70; PULSE 72; RESP 12
== END 2024-01-18 13:45 | disposition home or self-care (01) ==
PROVIDERS: PCP Internal Medicine; Visit Provider Plastic Surgery
PROC: (CPT 26055; principal; 2024-01-18 11:30)
DX: M65.341 Trigger finger, right ring finger (principal); M65.331 Trigger finger, right middle finger; M72.0 Palmar fascial fibromatosis [Dupuytren]; M65.4 Radial styloid tenosynovitis [de Quervain]; I10 Essential (primary) hypertension; E78.00 Pure hypercholesterolemia, unspecified; M17.10 Unilateral primary osteoarthritis, unspecified knee; M19.019 Primary osteoarthritis, unspecified shoulder; E66.9 Obesity, unspecified; Z68.33 Body mass index [BMI] 33.0-33.9, adult; Z79.891 Long term (current) use of opiate analgesic; Z98.890 Other specified postprocedural states; Z96.652 Presence of left artificial knee joint; Z87.891 Personal history of nicotine dependence; Z82.49 Family history of ischemic heart disease and other diseases of the circulatory system
CPT/HCPCS: 26123; 26125; 26055 ×2; 88304; A9270; J0690; J2405; J2704; J3010; J7120

== ENCOUNTER 2024-04-26 14:48 | Outpatient (CLI) | payer MEDICARE, BC, SELFPAY ==
[2024-04-26 15:20] LABS: Basophils Absolute Auto 0.1 K/mm3 (0.0-0.1); Basophils Percent Auto 0.9 % (0.2-1.2); Eosinophils Absolute Auto 0.2 K/mm3 (0-0.3); Eosinophils Percent Auto 2.6 % (0-4.4); Hematocrit 40.1 % (37.0-47.0); Hemoglobin 12.7 g/dL (12.0-15.0); Immature Granulocyte Absolute 0.02 K/mm3 (0.00-0.031); Immature Granulocyte Percent A 0.3 % (0-0.5); Lymphocytes Absolute Auto 1.71 K/mm3 (0.9-3.2); Lymphocytes Percent Auto 24.9 % (18.3-44.2); Mean Corpuscular HGB Conc 31.7 g/dl (32-36); Mean Corpuscular Hemoglobin 28.8 pg (26-34); Mean Corpuscular Volume 90.9 fl (80-100); Mean Platelet Volume 10.8 fl (7.4-10.4); Monocytes Absolute Auto 0.6 K/mm3 (0.1-0.6); Monocytes Percent Auto 8.6 % (2.6-8.5); Neutrophils Absolute Auto 4.3 K/mm3 (1.3-6.7); Neutrophils Percent Auto 62.7 % (45.5-73.1); Platelet Count Result 297 k/mm3 (150-375); Red Blood Count 4.41 M/mm3 (4.2-5.4); Red Cell Distribution Width 13.3 % (11.5-14.5); White Blood Count 6.9 K/mm3 (4.5-10.0)
[2024-04-26 15:32] LABS: Anion Gap 4 mmol/L (4-12); Blood Urea Nitrogen 24 mg/dL (7-17); Calcium 8.9 mg/dL (8.4-10.2); Carbon Dioxide 31 mmol/L (22-30); Chloride 103 mmol/L (98-107); Estimated Glomerular Filt Rate > 60; Glucose 100 mg/dL (65-110); Potassium 4.3 mmol/L (3.4-5.0); Sodium 138 mmol/L (137-145)
[2024-04-26 16:32] LABS: Add Urine Microscopic? NO; Appearance Urine Clear (Clear); Bilirubin Urine Negative (Negative); Blood Urine Negative (Negative); Color Urine Yellow (Yellow); Glucose Urine UA Negative (Negative); Ketones Urine Trace mg/dL (Negative); Leukocyte Esterase Ur Negative LEU/UL (Negative); Nitrate Urine Negative (Negative); Protein Urine Negative (Negative); Specific Grav Ur 1.025 (1.001-1.035); Urobilinogen Urine 0.2 mg/dL (<2.0); pH Urine 6.5 (5.0-9.0)
== END 2024-04-26 14:49 | disposition home or self-care (01) ==
PROVIDERS: PCP Internal Medicine; Visit Provider Orthopaedic Surgery
DX: E78.00 Pure hypercholesterolemia, unspecified (principal); I10 Essential (primary) hypertension; E11.9 Type 2 diabetes mellitus without complications; R53.83 Other fatigue
CPT/HCPCS: 36415; 80048; 81003; 85025

== ENCOUNTER 2024-05-28 00:53 | Day surgery (SDC) | payer MEDICARE, BC, SELFPAY ==
[2024-05-11 12:55] VITALS: BMI 33.1
--- NOTE | 2024-05-28 12:57 | P.PNAN_ITS ---
Anes - Initial Pre Proc Eval Procedure: Operation Date: 05/28/24 14:30 Proposed Procedures p Esophagogastroduodenoscopy - Peter Tompkins MD Date/Time: 05/28/24 12:57 Surgeon: Peter Tompkins MD Pre Op Diagnosis: Esophageal obstruction Patient Data Age: 78 Gender: F Height: 1.5 m Weight: 74.5 kg Allergies Allergy/AdvReac Type Severity Reaction Status Date / Time nickel AdvReac Unknown itching, Verified 05/28/24 13:18 rash Home Medications ?Medication ?Instructions ?Recorded ?Confirmed ?Type atorvastatin 20 mg tablet 20 mg PO DAILY 04/30/19 05/28/24 History carboxymethylcellulose sodium 0.5 1 drop ophthalmic (eye) BID PRN 04/30/19 05/28/24 History % eye drops (Refresh Tears) Dry Eye(S) fluoxetine 20 mg capsule 20 mg PO DAILY 04/30/19 05/28/24 History lisinopril 5 mg tablet 5 mg PO HS 04/30/19 05/28/24 History cholecalciferol (vitamin D3) 25 1,000 unit PO DAILY 08/11/20 05/28/24 History mcg (1,000 unit) tablet (Vitamin D3) pantoprazole 40 mg tablet,delayed 40 mg PO DAILY 08/11/20 05/28/24 History release vit C 250 mg-vit E 200 unit-zinc 1 cap PO BID 08/11/20 05/28/24 History ox 12.5 gc-fplyic-ueysvx-zeax capsule (ICaps AREDS2) buspirone 5 mg tablet 5 mg PO BID 01/03/23 05/28/24 History cyclosporine 0.05 % eye drops in a 1 drp EACH EYE Q12H 01/03/23 05/28/24 History dropperette furosemide 20 mg tablet 20 mg PO QAM PRN Edema 01/03/23 05/28/24 History ondansetron 4 mg disintegrating 4 mg PO Q6H PRN Nausea 01/03/23 05/28/24 History tablet potassium chloride 20 mEq 20 meq PO PRN PRN WHEN TAKES LASIX 01/03/23 05/28/24 History tablet,extended release Ventolin HFA 90 mcg/actuation See Rx Instructions .Route 03/30/23 05/11/24 Rx aerosol inhaler (albuterol sulfate) .COMPLEX #18 grams montelukast 10 mg tablet 10 mg PO QHS #30 tabs 04/18/23 05/28/24 Rx acetaminophen 500 mg capsule 1,000 mg PO Q6H PRN Pain 06/23/23 05/11/24 History cetirizine 10 mg tablet (Zyrtec) 10 mg PO DAILY 06/23/23 05/28/24 History vitamin B complex 1 cap PO DAILY 06/23/23 05/28/24 History ropinirole 0.25 mg tablet 0.25 mg PO HS 09/12/23 05/28/24 History Trelegy Ellipta 100 mcg-62.5 See Rx Instructions .Route 03/05/24 05/28/24 Rx mcg-25 mcg powder for inhalation .COMPLEX #60 ea (jblquvqyxtt-wqdvortfi-tezpvjsv) magnesium 250 mg tablet 300 mg PO DAILY 05/11/24 05/28/24 History Patient hx anesthesia problems: none Family hx anesthesia problems: none Results Review: All pre-operative results and documents have been reviewed as part of the pre- operative evaluation. [facility] Past Medical History Medical History (Updated 05/28/24 @ 12:57 by Sukh Koehlre DO) Asthma Rotator cuff tear Trochanteric bursitis, right hip DJD of AC (acromioclavicular) joint Rotator cuff tendonitis Right shoulder pain Degenerative joint disease of knee High cholesterol HTN (hypertension) Diabetes Surgical History Surgical History Status post total left knee replacement DOS 07/05/2023 S/P total knee arthroplasty History of laparoscopic appendectomy H/O: hysterectomy H/O hernia repair Family History Family History Mother Family history of coronary artery disease Family history of lung disease Sibling Family history of cardiovascular disease Family history of chronic obstructive pulmonary disease Family history of congestive heart failure Alcoholism Hypertension Depression Heart disease Father Family history of chronic obstructive pulmonary disease Social History Social History Smoking packs per day: 1 Smoking cigarettes per day: 20.0 Years smoked: 15 Smoking pack-years: 15.00 Smoking status: Former smoker Tobacco type: cigarettes Second hand tobacco smoke exposure: No Smoking end date: 11/06/84 Additional smoking assessment comments: DENIES ANY FORM OF TOBACCO USE Alcohol intake: never Drinks per week: 7 Alcohol use details: WINE Substance use: never Substance use type: does not use Do You Feel Safe in your Home?: Yes Lack of Transportation: No Lack of Food: Never True Current Housing: I Have Housing Concerned About Future Housing: No Difficulty Paying Gas/Electric Bills: No Difficulty Paying for Meds: No Currently Unemployed: No Education: Associate Degree Difficulty w/ Childcare or Family Care: No Living arrangements: with family Additional living arrangements comments: SPOUSE Spiritual care concerns: No Anes - Eval Final PreProcedure Day of Procedure 05/28/24 12:57 Patient weight: obese Heart: regular rate and rhythm Lungs: clear to auscultation Airway: Mallampati scale class II Neurological: alert and oriented Last oral intake: >/= 8 hours ASA classification: III Emergent: no Anesthetic plan: proceed Anesthesia type and monitoring: general GIVS and standard monitoring Results Review: All pre-operative results and documents have been reviewed as part of the pre- operative evaluation. Informed Consent: The patient's anesthetic plan and its attendant risks and benefits were discussed with the patient/family/POA. Questions were solicited and answers provided to the satisfaction of the patient/family/POA.
[2024-05-28 13:21] VITALS: BP 144/71; PULSE 86; RESP 16; TEMP 36.1; O2SAT 98
--- NOTE | 2024-05-28 13:24 | PM.HPGS ---
History of Present Illness History of Present Illness Consent: Risks, benefits, and alternatives have been discussed and questions answered. Patient agrees to proceed with procedure. Chief complaint: Esophageal obstruction Narrative: Beena Ortiz is a 78 year old female with dysphagia, here for egd Review of Systems Review of Systems: All systems reviewed & are unremarkable except as noted in HPI and below PMFSH Past Medical History Medical History (Updated 05/28/24 @ 12:57 by Sukh Koehler DO) Asthma Rotator cuff tear Trochanteric bursitis, right hip DJD of AC (acromioclavicular) joint Rotator cuff tendonitis Right shoulder pain Degenerative joint disease of knee High cholesterol HTN (hypertension) Diabetes Surgical History Surgical History Status post total left knee replacement DOS 07/05/2023 S/P total knee arthroplasty History of laparoscopic appendectomy H/O: hysterectomy H/O hernia repair Family History Family History Mother Family history of coronary artery disease Family history of lung disease Sibling Family history of cardiovascular disease Family history of chronic obstructive pulmonary disease Family history of congestive heart failure Alcoholism Hypertension Depression Heart disease Father Family history of chronic obstructive pulmonary disease Social History Social History Smoking packs per day: 1 Smoking cigarettes per day: 20.0 Years smoked: 15 Smoking pack-years: 15.00 Smoking status: Former smoker Tobacco type: cigarettes Second hand tobacco smoke exposure: No Smoking end date: 11/06/84 Additional smoking assessment comments: DENIES ANY FORM OF TOBACCO USE Alcohol intake: never Drinks per week: 7 Alcohol use details: WINE Substance use: never Substance use type: does not use Do You Feel Safe in your Home?: Yes Lack of Transportation: No Lack of Food: Never True Current Housing: I Have Housing Concerned About Future Housing: No Difficulty Paying Gas/Electric Bills: No Difficulty Paying for Meds: No Currently Unemployed: No Education: Associate Degree Difficulty w/ Childcare or Family Care: No Living arrangements: with family Additional living arrangements comments: SPOUSE Spiritual care concerns: No Meds Home Medications and Allergies Home Medications ?Medication ?Instructions ?Recorded ?Confirmed ?Type atorvastatin 20 mg tablet 20 mg PO DAILY 04/30/19 05/28/24 History carboxymethylcellulose sodium 0.5 1 drop ophthalmic (eye) BID PRN 04/30/19 05/28/24 History % eye drops (Refresh Tears) Dry Eye(S) fluoxetine 20 mg capsule 20 mg PO DAILY 04/30/19 05/28/24 History lisinopril 5 mg tablet 5 mg PO HS 04/30/19 05/28/24 History cholecalciferol (vitamin D3) 25 1,000 unit PO DAILY 08/11/20 05/28/24 History mcg (1,000 unit) tablet (Vitamin D3) pantoprazole 40 mg tablet,delayed 40 mg PO DAILY 08/11/20 05/28/24 History release vit C 250 mg-vit E 200 unit-zinc 1 cap PO BID 08/11/20 05/28/24 History ox 12.5 uj-yjoivb-wjhtef-zeax capsule (ICaps AREDS2) buspirone 5 mg tablet 5 mg PO BID 01/03/23 05/28/24 History cyclosporine 0.05 % eye drops in a 1 drp EACH EYE Q12H 01/03/23 05/28/24 History dropperette furosemide 20 mg tablet 20 mg PO QAM PRN Edema 01/03/23 05/28/24 History ondansetron 4 mg disintegrating 4 mg PO Q6H PRN Nausea 01/03/23 05/28/24 History tablet potassium chloride 20 mEq 20 meq PO PRN PRN WHEN TAKES LASIX 01/03/23 05/28/24 History tablet,extended release Ventolin HFA 90 mcg/actuation See Rx Instructions .Route 03/30/23 05/11/24 Rx aerosol inhaler (albuterol sulfate) .COMPLEX #18 grams montelukast 10 mg tablet 10 mg PO QHS #30 tabs 04/18/23 05/28/24 Rx acetaminophen 500 mg capsule 1,000 mg PO Q6H PRN Pain 06/23/23 05/11/24 History cetirizine 10 mg tablet (Zyrtec) 10 mg PO DAILY 06/23/23 05/28/24 History vitamin B complex 1 cap PO DAILY 06/23/23 05/28/24 History ropinirole 0.25 mg tablet 0.25 mg PO HS 09/12/23 05/28/24 History Trelegy Ellipta 100 mcg-62.5 See Rx Instructions .Route 03/05/24 05/28/24 Rx mcg-25 mcg powder for inhalation .COMPLEX #60 ea (qrnrulvqvwc-pvougjdfa-moxtspds) magnesium 250 mg tablet 300 mg PO DAILY 05/11/24 05/28/24 History Allergies Allergy/AdvReac Type Severity Reaction Status Date / Time nickel AdvReac Unknown itching, Verified 05/28/24 13:18 rash Exam Const: General: comfortable and no acute distress HENMT: Face/Nose/Sinus: Normal nares present Eyes: General: appearance normal, both eyes and all related structures Neck: Neck: no JVD Resp: Auscultation: clear to auscultation bilaterally Cardio: Rate: regular rate Rhythm: regular rhythm GI: Inspection: non-distended GI Palp: Yes Soft to palpation Skin: General skin exam: normal color Neuro: Speech: normal speech Extrem: General: normal to inspection Psych: Mental Status: mental status grossly normal Assessment and Plan Assessment and plan (1) Dysphagia: Code(s): R13.10 - Dysphagia, unspecified Status: Acute Assessment and Plan: egd
[2024-05-28] MEDS: LACTATED RINGERS 1,000 ML 150 ML IV CONT (13:31)
[2024-05-28 13:46] VITALS: BP 88/37; PULSE 87; RESP 16; O2SAT 96
[2024-05-28 13:56] VITALS: BP 87/40; PULSE 88; RESP 16; O2SAT 100
[2024-05-28 14:05] VITALS: BP 98/54; PULSE 83; RESP 16; O2SAT 99
--- OUTSIDE RECORDS SUMMARY | 2024-05-31 11:09 | XMS_ITS | Clinical Summary ---
Author Organization [facility] Address [address] [place] [address]. [place], [place] [id number] [place] [id number] Care Team Providers Care Building Maintenance Custodian Name Role Phone Allie Arizmendi MD Primary Care Provider [phone] Allergies No known active allergies Medications ondansetron 4 MG disintegrating tablet Take 1 tablet (4 mg total) by mouth every 8 (eight) hours as needed for Nausea. 20 tablet 1 Active atorvastatin 20 MG tablet Take 20 mg by mouth daily. 1 Active FLUoxetine 20 MG capsule Take 20 mg by mouth every morning. 1 Active furosemide 40 MG tablet Take 40 mg by mouth daily. 1 Active lisinopril 5 MG tablet Take 5 mg by mouth daily. 1 Active metFORMIN 500 MG tablet Take 500 mg by mouth daily. 1 Active pantoprazole EC 40 MG tablet Take 40 mg by mouth daily. 1 Active potassium chloride CR 10 MEQ CR capsule Take 10 mEq by mouth daily. 1 Active cycloSPORINE 0.05 % ophthalmic emulsion Place 1 drop into both eyes 2 (two) times daily. Active lifitegrast (XIIDRA) 5 % ophthalmic solution Place 1 drop into both eyes 2 (two) times daily. Active HYDROcodone-acetami nophen 5-325 MG tabletIndications:A cute Pain < 7 Day Supply Take 1-2 tablets by mouth every 6 (six) hours as needed. Indications: Acute Pain < 7 Day Supply 20 tablet 1 Active IRON OR Active Active Problems Problem Noted Date Diagnosed Date Kidney stone 04/20/2021 Palpitations 05/08/2019 Family History Medical History Relation Comments COPD Brother Emphysema Brother COPD Father Relation Status Comments Brother Alive Father Mother Social History Tobacco Use Types Packs/Day Years Used Date Smoking Tobacco: Former Smokeless Tobacco: Former Quit: 01/07/1986 Tobacco Cessation:Counseling Given: No Alcohol Use Standard Drinks/Week Comments Yes 0 (1 standard drink = 0.6 oz pur e alcohol) Socially PHQ-2 Answer Date Recorded PHQ-2 Score - If the patient scores above 3, please move on to questions 3-9 0 03/16/2022 Comments No Sex and Gender Information Value Date Recorded Sex Assigned at Not on file Legal Sex Female 11:35 PM CDT Gender Identity Not on file Sexual Orientation Not on file Last Filed Vital Signs Vital Sign Reading Time Taken Comments Blood Pressure 127/76 03/16/2022 12:27 PM FLIGHT ATTENDANT/INFLIGHT MANAGER Pulse 85 03/16/2022 12:27 PM FLIGHT ATTENDANT/INFLIGHT MANAGER Temperature 36.7 ??C (98 ??F) 03/16/2022 12:27 PM FLIGHT ATTENDANT/INFLIGHT MANAGER Respiratory Rate 18 04/28/2021 11:00 AM FLIGHT ATTENDANT/INFLIGHT MANAGER Oxygen Saturation 96% 03/16/2022 12:27 PM FLIGHT ATTENDANT/INFLIGHT MANAGER Inhaled Oxygen Concentration - - Weight 82.7 kg (182 lb 4.8 oz) 03/16/2022 12:27 PM FLIGHT ATTENDANT/INFLIGHT MANAGER Height 152.4 cm (5') 03/16/2022 12:27 PM FLIGHT ATTENDANT/INFLIGHT MANAGER Body Mass Index 35.6 03/16/2022 12:27 PM FLIGHT ATTENDANT/INFLIGHT MANAGER Plan of Treatment Health Maintenance Due Date Last Done Comments PHQ-2 (Physician Eek) 1957 Hepatitis C 08/20/1965 DTaP, Tdap and Td Vaccines (1 - Tdap) 08/20/1966 Annual Medicare Wellness Visit 08/20/2012 Dexa Scan (General) 08/20/2012 Zoster Vaccines (2 of 2) 05/08/2021 03/13/2021 RSV Immunization or 60+ Years (1 - 1-dose 75+ series) 08/20/2022 COVID-19 Vaccine (3 - season) 2024 07/21/2020, 06/27/2020 Influenza Adult (#1) 2024 03/10/2021, 01/31/2020, 03/29/2019, Additional history exists Pneumococcal Vaccine: 65+ Years Completed 01/31/2020, 07/14/2017 Meningococcal B Vaccine Aged Out No l onger eligible based on patient's age to complete this topic Meningococcal Vaccine Aged Out No yennifer keri eligible based on patient's age to complete this topic RSV Immunizations Under 20 Months Aged Out No longer eligible based on patient's age to complete this topic Goals Goal Patient Goal Type Associated Problems Recent Progress Patient-Stated? Author Monitor - able to maintain pain control General No Leon James RN Medical Devices Implanted Type Area Handbag Parts Cutter Device Identifier Shelf Expiration Date Model / Serial / Lot Stent Ureteral [place] [employer] Contour 6fr X 20cm - [id number] Implanted:Qty : 1 on 04/20/2021 by Alessandro Lee MD at [facility] Stent Right: Ureter [place] [employer] [id number] 08/26/2023 [id number] Insurance MEDICARE Advance Directives * Full Code (Latest Code Status on File) Date Activated Date Inactivated Comments 04/20/2021 5:35 AM 04/21/2021 5:37 PM Care Teams Building Maintenance Custodian Relationship Specialty Start Date End Date Allie Arizmendi MD [address] [place] [id number] PCP - General INTERNAL MEDICINE 04/17/21
--- OUTSIDE RECORDS SUMMARY | 2024-05-31 11:10 | XMS_ITS | Referral Summary ---
Author Organization [facility] Address [address] [place] [address] Care Team Providers Care Molding Room Supervisor Name Role Phone Allie Arizmendi MD Primary Care Provider + Heath Padron MD Unavailable Encounters Date Type Department Care Team Description 04/16/2024 11:15 AM MODEL MAKING SUPERVISOR Office Visit [facility] Cardiology at [address] [place] [address] Walker Verma MD Palpitations (Primary Dx) from Last 3 Months Allergies No known active allergies Medications atorvastatin (LIPITOR) 20 mg tablet Take 1 tablet (20 mg total) by mouth nightly Active lisinopril (PRINIVIL,ZESTRIL) 5 mg tablet Take 1 tablet (5 mg total) by mouth daily Active FLUoxetine (PROzac) 20 mg capsule Take 1 capsule (20 mg total) by mouth daily Active cetirizine (ZyrTEC) 10 mg chewable tablet Take 1 tablet (10 mg total) by mouth daily Active vitamins A,C,R-myqm-zldpml 7,160-113-100 orzj-uq-ssra tablet,delayed release (DR/EC) Take by mouth. Active RESTASIS 0.05 % ophthalmic emulsion 04/24/[address] (PROTONIX) 40 mg EC tablet Take 1 tablet (40 mg total) by mouth daily Active furosemide (LASIX) 40 mg tablet Take 1 tablet (40 mg total) by mouth 2 (two) times a day Active potassium chloride ER (KLOR-CON) 10 mEq CR tablet Take 1 tablet/capsu le (10 mEq total) by mouth 2 (two) times a day Active cholecalciferol (VITAMIN D-3) 25 mcg (1,000 unit) tablet Take 1 tablet (1,000 Units total) by mouth daily Active vitamin B complex capsule Take 1 capsule by mouth daily Active albuterol (PROAIR RESPICLICK) 90 mcg/actuation inhaler Inhale 2 puffs every 6 (six) hours as needed for wheezing Active montelukast (SINGULAIR) 10 mg tablet Take 1 tablet (10 mg total) by mouth nightly Active fluticasone-umeclid in-vilanter (Trelegy Ellipta) 100-62.5-25 mcg inhaler Inhale 1 puff daily Active rOPINIRole (REQUIP) 0.25 mg tablet Take 1 tablet (0.25 mg total) by mouth 2 (two) times a day Active busPIRone (BUSPAR) 5 mg tabletIndications:G eneralized Anxiety Disorder Take 1 tablet (5 mg total) by mouth 3 (three) times a day Active ondansetron (ZOFRAN) 4 mg tablet Take 1 tablet (4 mg total) by mouth every 8 (eight) hours as needed for nausea or vomiting Active levocetirizine dihydrochloride (XYZAL ORAL) Take by mouth Active coenzyme Q10 200 mg capsule Take 1 capsule (200 mg total) by mouth daily Active multivitamin tabletIndications:V itamin Deficiency Prevention Take 1 tablet by mouth Active calcium-magnesium 300-300 mg tablet Take by mouth Active Active Problems Problem Noted Date Diagnosed Date Preoperative evaluation to chintan hernandez out surgical contraindication 06/01/2023 Trigger ring finger of right hand 01/25/2023 Trigger middle finger of right hand 12/22/2022 Coronavirus infection 02/23/2022 Hoarseness 12/11/2021 Multinodular goiter 12/11/2021 Right hand pain 11/23/2021 Ganglion cyst 11/23/2021 Subcutaneous mass of right thumb 11/23/2021 Overview (11/23/2021): Added automatically from request for surgery [id number] Atherosclerosis of aorta 09/07/2021 Kidney stone 04/20/2021 Prediabetes 03/10/2021 Dysphagia 07/31/2020 Gastroesophageal reflux disease 07/31/2020 Mild intermittent asthma 01/31/2020 Palpitations 05/08/2019 Benign essential hypertension 03/29/2019 Hyperlipidemia 03/29/2019 Major depression in partial remission 03/29/2019 Social History Tobacco Use Types Packs/Day Years Used Date Smoking Tobacco: Former Cigarettes 1 15 0 05/09/1970 - 05/09/1985 Passive Smoke Exposure: Past Smokeless Tobacco: Never Alcohol Use Standard Drinks/Week Comments Never 0 (1 standard drink = 0.6 oz pur e alcohol) 2 glasses wine nightly AUDIT-C Answer Date Recorded Q1: How often do you have a drink containing alcohol? Never 06/01/2023 Q2: How many drinks containi ng alcohol do you have on a typical day when you are drinking? Patient does not drink Q3: How often do you have si x or more drinks on one occasion? Never 06/01/2023 Personal Safety Answer Date Recorded Have you ever been in or are you currently in a harmful physical or emotional relationship or is someone making you feel afraid or unsafe? Denies 02/03/2023 Comments No Sex and Gender Information Value Date Recorded Sex Assigned at Not on file Legal Sex Female 6:58 PM MODEL MAKING SUPERVISOR Gender Identity Not on file Sexual Orientation Not on file Last Filed Vital Signs Vital Sign Reading Time Taken Comments Blood Pressure 102/68 04/16/2024 11:14 AM MODEL MAKING SUPERVISOR Pulse 78 04/16/2024 11:14 AM MODEL MAKING SUPERVISOR Temperature 36.3 ??C (97.4 ??F) 02/03/2023 7:45 AM CD T Respiratory Rate 20 02/03/2023 8:05 AM CDT Oxygen Saturation 95% 04/16/2024 11:14 AM MODEL MAKING SUPERVISOR Inhaled Oxygen Concentration - - Weight 76.7 kg (169 lb) 04/16/2024 11:14 AM MODEL MAKING SUPERVISOR Height 149.9 cm (4' 11 ) 04/16/2024 11:14 AM MODEL MAKING SUPERVISOR Body Mass Index 34.13 04/16/2024 11:14 AM MODEL MAKING SUPERVISOR Plan of Treatment Not on file Medical Devices Implanted Type Area Manufacturing Accountant Device Identifier Shelf Expiration Date Model / Serial / Lot Screw Screw Right: Toes Bottom Teeth Tooth Screw In Left Second Toe Left: Second Toe Procedures Procedure Name Priority Date/Time Associated Diagnosis Comments ELECTROCARDIOGRAM REPORT Routine 024 2:45 PM MODEL MAKING SUPERVISOR Palpitations from Last 3 Months Results * Electrocardiogram Report (04/16/2024 2:45 PM MODEL MAKING SUPERVISOR) Walker Verma MD ECG ORDERABLES Final Re sult from Last [address] [id number] [place] [address] MEDICARE [facility] [place] [address] MEDICARE [facility] Care Teams Molding Room Supervisor Relationship Specialty Start Date End Date Allie Arizmendi MD [address] [place] [address] PCP - General Internal Medicine 05/08/19 Heath Padron MD [address] [address] Referring Physician Orthopedic Surgery 06/01/23
--- OUTSIDE RECORDS SUMMARY | 2024-05-31 11:10 | XMS_ITS | Clinical Summary ---
Author Organization [facility] Address [address] [place] [address] Care Team Providers Care Pole Incisor Operator Name Role Phone Allie Arizmendi MD Primary Care Provider + Heath Padron MD Unavailable [phone] Allergies No known active allergies Medications atorvastatin [...] mg total) by mouth daily Active vitamins A,C,U-rzja-dpgohp 7,160-113-100 jvda-cn-mpel tablet,delayed release (DR/EC) Take by mouth. Active [...] (11/23/2021): Added automatically from request for surgery [id number] Atherosclerosis of aorta 09/07/2021 Kidney stone 04/20/2021 Prediabetes 03/10/2021 Dysphagia 07/31/2020 Gastroesophageal reflux disease 07/31/2020 Mild intermittent asthma 01/31/2020 Palpitations 05/08/2019 Benign essential hypertension 03/29/2019 Hyperlipidemia 03/29/2019 Major depression in partial remission 03/29/2019 Encounters Date Type Department Care Team Description 04/16/2024 11:15 AM AREA SAFETY MANAGER Office Visit [facility] Cardiology at [address] [place] [address] Walker Verma MD Palpitations (Primary Dx) from Last 3 Months Surgical History Surgery Date Site/Laterality Comments HYSTERECTOMY CATARACT EXTRACTION HIATAL HERNIA REPAIR 05/09/2018 - 05/08/2019 HAND SURGERY Bilateral Thumb basal joint surgery COLONOSCOPY x3 FOOT NEUROMA SURGERY Right FOOT SURGERY Left Neuroma, 2nd and 3rd hammer toes, 2nd toe orif THUMB SURGERY 12/01/2021 Right mass excision LITHOTRIPSY APPENDECTOMY TRIGGER FINGER RELEASE 02/03/2023 Right RT.LONG & RING FTS RELEASE JOINT REPLACEMENT 2003 Medical History Medical History Date Comments HTN (hypertension) diabetes GERD (gastroesophageal reflux disease) Hiatal hernia Seasonal allergies High cholesterol Motion sickness Asthma Allergic rhinitis Thyroid nodule multi with goite r Depression Cataracts, bilateral HL (hearing loss) Tinnitus PONV (postoperative nausea and vomiting) Pre-diabetes Headache 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 Diabetes mellitus (HCC) Kidney stone 2020 Family History Medical History Relation Name Comments COPD Brother Alida Mcleod Cancer Brother Alida Mcleod Heart disease Brother Alida Mcleod COPD Father Brayan Mcleod Lung disease Mother Relation Name Status Comments Brother Alida Mcleod Alive copd, chf Father Brayan Mcleod (Age 85) copd Mother (Age 59) lung disea se Social History Tobacco Use Types Packs/Day Years [...] on file Legal Sex Female 6:58 PM AREA SAFETY MANAGER Gender Identity Not on file Sexual Orientation Not on file Obstetrics History Last Filed Vital Signs Vital Sign Reading Time Taken Comments Blood Pressure 102/68 04/16/2024 11:14 AM AREA SAFETY MANAGER Pulse 78 04/16/2024 11:14 AM AREA SAFETY MANAGER Temperature 36.3 ??C (97.4 ??F) 02/03/2023 7:45 AM CD T Respiratory Rate 20 02/03/2023 8:05 AM CDT Oxygen Saturation 95% 04/16/2024 11:14 AM AREA SAFETY MANAGER Inhaled Oxygen Concentration - - Weight 76.7 kg (169 lb) 04/16/2024 11:14 AM AREA SAFETY MANAGER Height 149.9 cm (4' 11 ) 04/16/2024 11:14 AM AREA SAFETY MANAGER Body Mass Index 34.13 04/16/2024 11:14 AM AREA SAFETY MANAGER Plan of Treatment Health Maintenance Due Date Last Done Comments Depression Screening 1945 Hepatitis C Screening 1945 Osteoporosis Screening-Bone Density Scan 1945 Hepatitis B Screening 08/20/1965 Zoster Vaccine (1 of 2) 08/20/1997 Well Visit 65+ 08/20/2012 Covid-19 Vaccine ( - season) 01/08/202405/2020 Influenza Vaccine (#1) 2024 , 03/29/2019, 05/09/2017 Fall Risk Assessment 02/04/2024 02/03/2023 DTaP/Tdap/Td Vaccine (2 - Td or Tdap) 04/16/203201/2022 Pneumococcal vaccine 65+ Completed 03/29/2023, 03/0 12/2017 Medical Devices Implanted Type Area Rn Plasma Center Device Identifier Shelf Expiration Date Model / Serial / Lot Screw Screw Right: Toes Bottom Teeth Tooth Screw In Left Second Toe Left: Second Toe Procedures Procedure Name Priority Date/Time Associated Diagnosis Comments ELECTROCARDIOGRAM REPORT Routine 024 2:45 PM AREA SAFETY MANAGER Palpitations from Last 3 Months Results * Electrocardiogram Report (04/16/2024 2:45 PM AREA SAFETY MANAGER) us Walker Verma MD ECG ORDERABLES Final Re sult from Last 3 Months Insurance MEDICARE [employer] O MEDICARE [place] [address] MEDICARE [facility] Member Subscriber Plan / Payer (Ef fective 2015-Present) Name:Diana Beena K Relation to Subscriber:Spouse Name:VANESA WEIR Date of :1944 (Home) Address: [address] [place] [address] [place] [address] Payer ID:[id number] (NAIC) Group ID:[id number] Type: ALLIANCE Address: [address] [place] [id number] Care Teams Pole Incisor Operator Relationship Specialty Start Date End Date Allie Arizmendi MD [address] [place] [address] PCP - General Internal Medicine 05/08/19 Heath Padron MD [address] [place] [address] Referring Physician Orthopedic Surgery 06/01/23
== END 2024-05-28 14:16 | disposition home or self-care (01) ==
PROVIDERS: PCP Internal Medicine; Referring Provider Internal Medicine; Visit Provider Internal Medicine Gastroenterology
PROC: 0DJ08ZZ Inspection of Upper Intestinal Tract, Via Natural or Artificial Opening Endoscopic (ICD-10-PCS; CPT 43249; principal; 2024-05-28 14:30)
DX: K22.2 Esophageal obstruction (principal); K44.9 Diaphragmatic hernia without obstruction or gangrene; J45.909 Unspecified asthma, uncomplicated; I10 Essential (primary) hypertension; E78.00 Pure hypercholesterolemia, unspecified; E11.9 Type 2 diabetes mellitus without complications; M17.10 Unilateral primary osteoarthritis, unspecified knee; M19.019 Primary osteoarthritis, unspecified shoulder; E66.9 Obesity, unspecified; Z68.33 Body mass index [BMI] 33.0-33.9, adult; Z79.51 Long term (current) use of inhaled steroids; Z98.890 Other specified postprocedural states; Z87.891 Personal history of nicotine dependence; Z82.49 Family history of ischemic heart disease and other diseases of the circulatory system
CPT/HCPCS: 43249; C1726; J2003; J2704; J7120

== ENCOUNTER 2024-06-12 09:33 | Outpatient (CLI) | payer MEDICARE, BC, SELFPAY ==
--- OUTSIDE RECORDS SUMMARY | 2024-06-12 10:08 | XMS_ITS | Clinical Summary ---
Author Organization [facility] Address [address] [place] [address] Care Team Providers Care Indian Trader Name Role Phone Allie Arizmendi MD Primary Care Provider + Heath Padron MD Unavailable [phone] Allergies No known active allergies Medications atorvastatin [...] mg total) by mouth daily Active vitamins A,C,V-hgnu-cqtqyq 7,160-113-100 flin-wz-fdtw tablet,delayed release (DR/EC) Take by mouth. Active [...] (11/23/2021): Added automatically from request for surgery [id number] Atherosclerosis of aorta 09/07/2021 Kidney stone 04/20/2021 Prediabetes 03/10/2021 Dysphagia 07/31/2020 Gastroesophageal reflux disease 07/31/2020 Mild intermittent asthma 01/31/2020 Palpitations 05/08/2019 Benign essential hypertension 03/29/2019 Hyperlipidemia 03/29/2019 Major depression in partial remission 03/29/2019 Encounters Date Type Department Care Team Description 04/16/2024 11:15 AM CORDWAINER Office Visit [facility] Cardiology at [address] [place] [address] Walker Verma MD Palpitations (Primary [...] Medical History Relation Name Comments COPD Brother Aldia Mcleod Cancer Brother Alida Mcleod Heart disease [...] on file Legal Sex Female 6:58 PM CORDWAINER Gender Identity Not on file Sexual Orientation Not on file Obstetrics History Last Filed Vital Signs Vital Sign Reading Time Taken Comments Blood Pressure 102/68 04/16/2024 11:14 AM CORDWAINER Pulse 78 04/16/2024 11:14 AM CORDWAINER Temperature 36.3 ??C (97.4 ??F) 02/03/2023 7:45 AM CD T Respiratory Rate 20 02/03/2023 8:05 AM CDT Oxygen Saturation 95% 04/16/2024 11:14 AM CORDWAINER Inhaled Oxygen Concentration - - Weight 76.7 kg (169 lb) 04/16/2024 11:14 AM CORDWAINER Height 149.9 cm (4' 11 ) 04/16/2024 11:14 AM CORDWAINER Body Mass Index 34.13 04/16/2024 11:14 AM CORDWAINER Plan of Treatment Health Maintenance Due Date [...] 03/0 12/2017 Medical Devices Implanted Type Area Guest Relations Representative Device Identifier Shelf Expiration Date Model / Serial / Lot Screw Screw Right: Toes Bottom Teeth Tooth Screw In Left Second Toe Left: Second Toe Procedures Procedure Name Priority Date/Time Associated Diagnosis Comments ELECTROCARDIOGRAM REPORT Routine 024 2:45 PM CORDWAINER Palpitations from Last 3 Months Results * Electrocardiogram Report (04/16/2024 2:45 PM CORDWAINER) us Walker Verma MD ECG ORDERABLES Final Re sult from Last 3 Months Insurance MEDICARE [employer] O [place]IC[place] [address] MEDICARE [facility] Member Subscriber Plan / Payer (Ef fective 2015-Present) Name:Diana Beena K Relation to Subscriber:Spouse Name:VANESA WEIR Date of :1944 (Home) Address: [address] [place] [address] [place] [address] Payer ID:[id number] (NAIC) Group ID:[id number] Type: [employer] Address: [address] [place] [id number] Care Teams Indian Trader Relationship Specialty Start Date End Date Allie Arizmendi MD [address] [place] [address] PCP - General Internal Medicine 05/08/19 Heath Padron MD [address] [place] [address] Referring Physician Orthopedic Surgery 06/01/23
--- OUTSIDE RECORDS SUMMARY | 2024-06-12 10:08 | XMS_ITS | Clinical Summary ---
Author Organization [facility] Address [address] [place] [address]. [place], [place] [address] [place] [address] Care Team Providers Care Stock House Worker Name Role Phone Allie Arizmendi MD Primary Care Provider [phone] Allergies No known active allergies Medications ondansetron [...] Comments Blood Pressure 127/76 03/16/2022 12:27 PM GRADUATE ENGINEER Pulse 85 03/16/2022 12:27 PM GRADUATE ENGINEER Temperature 36.7 ??C (98 ??F) 03/16/2022 12:27 PM GRADUATE ENGINEER Respiratory Rate 18 04/28/2021 11:00 AM GRADUATE ENGINEER Oxygen Saturation 96% 03/16/2022 12:27 PM GRADUATE ENGINEER Inhaled Oxygen Concentration - - Weight 82.7 kg (182 lb 4.8 oz) 03/16/2022 12:27 PM GRADUATE ENGINEER Height 152.4 cm (5') 03/16/2022 12:27 PM GRADUATE ENGINEER Body Mass Index 35.6 03/16/2022 12:27 PM GRADUATE ENGINEER Plan of Treatment Health Maintenance Due Date Last Done Comments PHQ-2 (Physician [place]) 1957 Hepatitis C 08/20/1965 DTaP, Tdap and Td Vaccines (1 - Tdap) 08/20/1966 Annual Medicare Wellness Visit 08/20/2012 Dexa Scan (General) 08/20/2012 Zoster Vaccines (2 of 2) 05/08/2021 03/13/2021 RSV Immunization or 60+ Years (1 - 1-dose 75+ series) 08/20/2022 COVID-19 Vaccine (3 - season) 2024 07/21/2020, 06/27/2020 Influenza Adult (#1) 2024 03/10/2021, 01/31/2020, 03/29/2019, Additional history exists PHQ-2 (Physician [place]) 05/09/2024 Pneumococcal Vaccine: 65+ Years Completed 01/31/2020, 07/14/2017 [...] James RN Medical Devices Implanted Type Area Beater Engineer Helper Device Identifier Shelf Expiration Date Model / Serial / Lot Stent Ureteral [employer] Sci Contour 6fr X 20cm - [id number] Implanted:Qty : 1 on 04/20/2021 by Alessandro Lee MD at [facility] Stent Right: Ureter [employer] [id number] 08/26/2023 [id number] Insurance MEDICARE Advance Directives * Full Code (Latest Code Status on File) Date Activated Date Inactivated Comments 04/20/2021 5:35 AM 04/21/2021 5:37 PM Care Teams Stock House Worker Relationship Specialty Start Date End Date Allie Arizmendi MD [address] [place] [address] PCP - General INTERNAL MEDICINE 04/17/21
--- OUTSIDE RECORDS SUMMARY | 2024-06-12 10:08 | XMS_ITS | Referral Summary ---
Author Organization [facility] Address [address] [place] [address] Care Team Providers Care Hand Lacer Name Role Phone Allie Arizmendi MD Primary Care Provider + Heath Padron MD Unavailable [phone] Encounters Date Type Department Care Team Description 04/16/2024 11:15 AM SENIOR JAVA ENGINEER Office Visit [facility] Cardiology at [address] [place] [address] Walker Verma MD Palpitations (Primary [...] mg total) by mouth daily Active vitamins A,C,G-hpgp-bbklbf 7,160-113-100 nelc-vm-tbkq tablet,delayed release (DR/EC) Take by mouth. Active [...] (11/23/2021): Added automatically from request for surgery [id number] Atherosclerosis of aorta 09/07/2021 Kidney stone 04/20/2021 [...] on file Legal Sex Female 6:58 PM SENIOR JAVA ENGINEER Gender Identity Not on file Sexual Orientation Not on file Last Filed Vital Signs Vital Sign Reading Time Taken Comments Blood Pressure 102/68 04/16/2024 11:14 AM SENIOR JAVA ENGINEER Pulse 78 04/16/2024 11:14 AM SENIOR JAVA ENGINEER Temperature 36.3 ??C (97.4 ??F) 02/03/2023 7:45 AM CD T Respiratory Rate 20 02/03/2023 8:05 AM CDT Oxygen Saturation 95% 04/16/2024 11:14 AM SENIOR JAVA ENGINEER Inhaled Oxygen Concentration - - Weight 76.7 kg (169 lb) 04/16/2024 11:14 AM SENIOR JAVA ENGINEER Height 149.9 cm (4' 11 ) 04/16/2024 11:14 AM SENIOR JAVA ENGINEER Body Mass Index 34.13 04/16/2024 11:14 AM SENIOR JAVA ENGINEER Plan of Treatment Not on file Medical Devices Implanted Type Area Surface To Air Weapons Officer Device Identifier Shelf Expiration Date Model / Serial / Lot Screw Screw Right: Toes Bottom Teeth Tooth Screw In Left Second Toe Left: Second Toe Procedures Procedure Name Priority Date/Time Associated Diagnosis Comments ELECTROCARDIOGRAM REPORT Routine 024 2:45 PM SENIOR JAVA ENGINEER Palpitations from Last 3 Months Results * Electrocardiogram Report (04/16/2024 2:45 PM SENIOR JAVA ENGINEER) Walker Verma MD ECG ORDERABLES Final Re sult from Last [address] [place] [id number] [address] [place] [address] [address] [facility] [place] [address] MEDICARE [facility] Care Teams Hand Lacer Relationship Specialty Start Date End Date Allie Arizmendi MD [address] [place] [address] PCP - General Internal Medicine 05/08/19 Heath Padron MD [address] [address] Referring Physician Orthopedic Surgery 06/01/23
[2024-06-12 11:37] LABS: Prothrombin Time 13.5 Seconds (11.1-14.7)
[2024-06-12 11:38] LABS: Partial Thromboplastin Time 28.8 Seconds (22.3-36.8)
[2024-06-12 11:45] LABS: Albumin Level 3.8 g/dL (3.5-5.1)
[2024-06-12 12:19] LABS: Urine Cotinine NEGATIVE
[2024-06-12 12:31] LABS: MRSA (PCR) NOT DETECTED (NOT DETECTE)
[2024-06-12 12:45] LABS: Hemoglobin A1C 5.8 % (<5.7)
== END 2024-06-12 09:34 | disposition home or self-care (01) ==
LOC: ANHSURGERY 09:36
PROVIDERS: PCP Internal Medicine; Visit Provider Orthopaedic Surgery
DX: Z01.818 Encounter for other preprocedural examination (principal); M17.11 Unilateral primary osteoarthritis, right knee
CPT/HCPCS: 80307; 82040; 83036; 85610; 85730; 87641

== ENCOUNTER 2024-06-26 00:44 | Day surgery (SDC) | payer MEDICARE, BC, SELFPAY ==
[2024-06-12 10:12] VITALS: BP 119/66; PULSE 72; RESP 16; TEMP 36.7; O2SAT 96; BMI 33.4
--- NOTE | 2024-06-12 10:35 | PC.NURSE ---
Addendum entered by Sunita Mcbride RN 06/14/24 11:12: PATIENT CALLED TO ASK IF SHE COULD TAKE ZOFRAN ON MORNING OF SURGERY, INSTRUCTED TO TAKE NEEDED WITH SIP OF WATER. SHE RELAYS UNDERSTANDING. Original Note: Report to the Outpatient Waiting Room, entrance under the green pavilion located off [facility], at time __6:00AM on date ___06/26/24____. Planned Procedure Time: ___7:30AM .? Time changes happen often and if your time is changed the preop area will call you the afternoon before. - You and your visitor will be asked to self-screen and do not enter if you have any COVID symptoms. Please call surgeon if you need to reschedule. - A mask is optional within the hospital at this time. Patients may have clear liquids (water, carbonated beverages, clear teas, apple juice) until 3 hours prior to surgery (4:30AM) with a maximum of 20 ounces. - No food from midnight until time of surgery and no smoking. This includes no chewing gum, candy or mints. Take only the following medications with a SIP of water on the morning of surgery: ___BUSPIRONE, FLUOXETINE, TRELEGY ELLIPTA. MAY USE VENTOLIN INHALER NEEDED. DO NOT STOP ANY OF YOUR OTHER PRESCRIPTION MEDICATIONS PRIOR TO SURGERY EXCEPT THE FOLLOWING Medications to discontinue per physician HOLD ALL VITAMINS/SUPPLEMENTS 7 DAYS PRE-OP PER DR [place] Date to take last dose 06/18/24 Please no make-up, nail setswana, hairspray, perfume, deodorant, or body powder the day of surgery.? No jewelry (including any body piercings) or valuables the day of surgery, leave them at home.? Please take a shower or bath the night before, or the morning of, surgery with an antibacterial soap.? Wear comfortable, loose fitting clothing.? - Jewelry must be removed prior to entering the operating room.? Rings and piercings that are not removed may be cut off. - The hospital will not accept responsibility for valuables.? - Please leave all valuables, including medications, at home the day of surgery. If you are going home after surgery, a licensed delivery route driver must drive you home.? - NO public transportation without another adult if you receive anesthesia. - We recommend that an adult stay with you for 24 hours following discharge. - We also recommend that you do not drive, make important decision, drink alcoholic beverages, or take any drugs that were not prescribed by your health care provider for at least 24 hours after your discharge time. Hold all vitamins and supplements for 3 days per anesthesiologist. Follow any additional instructions given to you from your surgeon. Telephone instructions given to ____PATIENT and asked if any additional questions and then verbalized understanding. Patient advised to call surgeon office or pre surgery nurse liaison [phone] if any additional questions.
[2024-06-26] VITALS (15 sets, daily range): BP systolic 112–156; BP diastolic 58–92; PULSE 79–97; RESP 9–20; TEMP 36.3–37.1; O2SAT 92–100; BMI 33.1
--- NOTE | ~2024-06-26 | XR_ITS ---
EXAMINATION: [id number] DATE: 06/26/2024 14:50 INDICATION: Total right knee arthroplasty. Postop. TECHNIQUE: 2 views of right knee were obtained. COMPARISON: Right knee radiographs 04/26/2024 FINDINGS: There is a total right knee arthroplasty with patellar resurfacing in near-anatomic alignme nt. No fracture. There is gas in the knee joint and soft tissues, consistent with recent surgery. Ant erior skin willy are noted. IMPRESSION: 1. Total right knee arthroplasty in near-anatomic alignment. Reviewed, dictated and finalized at location A. [employer]
--- OUTSIDE RECORDS SUMMARY | 2024-06-26 00:47 | XMS_ITS | Referral Summary ---
Author Organization [facility] Address [address] [place] [address] Care Team Providers Care Sanipractic Physician Name Role Phone Allie Arizmendi MD Primary Care Provider + Heath Padron MD Unavailable [phone] Encounters Date Type Department Care Team Description 04/16/2024 11:15 AM GRATED CHEESE MAKER Office Visit [facility] Cardiology at [address] [place] [address] Walker Verma MD Palpitations (Primary [...] mg total) by mouth daily Active vitamins A,C,N-mjum-oulguu 7,160-113-100 emgm-hd-fmgk tablet,delayed release (DR/EC) Take by mouth. Active [...] (11/23/2021): Added automatically from request for surgery [id number] Atherosclerosis of aorta 09/07/2021 Kidney stone 04/20/2021 [...] on file Legal Sex Female 6:58 PM GRATED CHEESE MAKER Gender Identity Not on file Sexual Orientation Not on file Last Filed Vital Signs Vital Sign Reading Time Taken Comments Blood Pressure 102/68 04/16/2024 11:14 AM GRATED CHEESE MAKER Pulse 78 04/16/2024 11:14 AM GRATED CHEESE MAKER Temperature 36.3 C (97.4 F) 02/03/2023 7:45 AM CDT Respiratory Rate 20 02/03/2023 8:05 AM CDT Oxygen Saturation 95% 04/16/2024 11:14 AM GRATED CHEESE MAKER Inhaled Oxygen Concentration - - Weight 76.7 kg (169 lb) 04/16/2024 11:14 AM GRATED CHEESE MAKER Height 149.9 cm (4' 11 ) 04/16/2024 11:14 AM GRATED CHEESE MAKER Body Mass Index 34.13 04/16/2024 11:14 AM GRATED CHEESE MAKER Plan of Treatment Not on file Medical Devices Implanted Type Area [employer] Executive Director Device Identifier Shelf Expiration Date Model / Serial / Lot Screw Screw Right: Toes Bottom Teeth Tooth Screw In Left Second Toe Left: Second Toe Procedures Procedure Name Priority Date/Time Associated Diagnosis Comments ELECTROCARDIOGRAM REPORT Routine 024 2:45 PM GRATED CHEESE MAKER Palpitations from Last 3 Months Results * Electrocardiogram Report (04/16/2024 2:45 PM GRATED CHEESE MAKER) us Walker Verma MD ECG ORDERABLES Final Re sult from Last [address] [place] [id number] [place] [address] [place] [address] [place] [address] [facility] [address] MEDICARE [facility] Care Teams Sanipractic Physician Relationship Specialty Start Date End Date Allie Arizmendi MD [address] [place] [address] PCP - General Internal Medicine 05/08/19 Heath Padron MD [address] [address] Referring Physician Orthopedic Surgery 06/01/23
--- OUTSIDE RECORDS SUMMARY | 2024-06-26 00:48 | XMS_ITS | Clinical Summary ---
Author Organization [facility] Address [facility] [place] [address] Care Team Providers Care Drupal Developer Name Role Phone Allie Arizmendi MD Primary Care Provider [phone] Allergies No known active allergies Medications ondansetron [...] Comments Blood Pressure 127/76 03/16/2022 12:27 PM WEIGHBRIDGE OPERATOR Pulse 85 03/16/2022 12:27 PM WEIGHBRIDGE OPERATOR Temperature 36.7 C (98 F) 03/16/2022 12:27 PM WEIGHBRIDGE OPERATOR Respiratory Rate 18 04/28/2021 11:00 AM WEIGHBRIDGE OPERATOR Oxygen Saturation 96% 03/16/2022 12:27 PM WEIGHBRIDGE OPERATOR Inhaled Oxygen Concentration - - Weight 82.7 kg (182 lb 4.8 oz) 03/16/2022 12:27 PM WEIGHBRIDGE OPERATOR Height 152.4 cm (5') 03/16/2022 12:27 PM WEIGHBRIDGE OPERATOR Body Mass Index 35.6 03/16/2022 12:27 PM WEIGHBRIDGE OPERATOR Plan of Treatment Health Maintenance Due Date Last Done Comments PHQ-2 (Physician [place]) 1957 Hepatitis C 08/20/1965 DTaP, Tdap and Td Vaccines (1 - Tdap) 08/20/1966 Annual Medicare Wellness Visit 08/20/2012 Dexa Scan (General) 08/20/2012 Zoster Vaccines (2 of 2) 05/08/2021 03/13/2021 RSV Immunization or 60+ Years (1 - 1-dose 75+ series) 08/20/2022 COVID-19 Vaccine (3 - season) 2024 07/21/2020, 06/27/2020 Influenza Adult (#1) 2024 03/10/2021, 01/31/2020, 03/29/2019, Additional history exists PHQ-2 (Physician [place]) 05/09/2024 Pneumococcal Vaccine: 65+ Years Completed 01/31/2020, [...] James RN Medical Devices Implanted Type Area Visual Effects Artist Device Identifier Shelf Expiration Date Model / Serial / Lot Stent Ureteral [place] Sci Contour 6fr X 20cm - [id number] Implanted:Qty : 1 on 04/20/2021 by Alessandro Lee MD at [facility] Stent Right: Ureter [employer] [id number] 08/26/2023 [id number] Insurance MEDICARE Advance Directives * Full Code (Latest Code Status on File) Date Activated Date Inactivated Comments 04/20/2021 5:35 AM 04/21/2021 5:37 PM Care Teams Drupal Developer Relationship Specialty Start Date End Date Allie Arizmendi MD [address] [place] [address] PCP - General INTERNAL MEDICINE 04/17/21
--- OUTSIDE RECORDS SUMMARY | 2024-06-26 00:48 | XMS_ITS | Continuity of Care Document ---
Author Organization [facility] [place] Address [address] [place] [address] Phone Care Team Providers Care Cell Manager Name Role Phone Allie Arizmendi MD Unavailable Unavailable Allergies, Adverse Reactions, Alerts Substance Reaction Status Criticality No Known Allergies Active No Inform ation Medications Medication Instructions Dosage Effective Dates (start - stop) Status Comments BUSPIRONE 5MG TABLETS TAKE 1 TABLET BY MOUTH TWICE DAILY - Active ROPINIROLE 0.25MG TABLETS TAKE 1 TABLET BY MOUTH EVERY NIGHT 1 TO 3 HOURS BEFORE BEDTIME FOR 3 DAYS. INCREASE TO 2 TABLET DAILY 1 TO 3 HOURS BEFORE BEDTIME EVERY NIGHT - Active Co Q-10 100 mg capsule Patient taking 2 100mg gummies daily - Active potassium chloride ER 20 mEq tablet,extended release take 1 tablet by oral route every day with food as needed when taking furosemide as needed - Active ATORVASTATIN 20MG TABLETS TAKE 1 TABLET BY MOUTH EVERY DAY - Active LISINOPRIL 5MG TABLETS TAKE 1 TABLET BY MOUTH EVERY DAY - Active ONDANSETRON ODT 4MG TABLETS PLACE 1 TABLET ON TOP OF THE TONGUE WHERE IT WILL DISSOLVE, THEN SWALLOW EVERY 6 HOURS - Active furosemide 20 mg tablet take 1 tablet by oral route every day as needed 20 MG - Active Refresh P.M. 57.3 %-42.5 % eye ointment apply to both eyes at bedtime as needed - Active PANTOPRAZOLE 40MG TABLETS TAKE 1 TABLET BY MOUTH EVERY DAY - Active cyclosporine 0.05 % eye drops in a dropperette instill 1 drop by ophthalmic route every 12 hours into affected eye(s) 1.00 drop - Active turmeric 400 mg capsule take 1 tablet daily - Active vitamin B complex tablet take 1 tablet by oral route every day 1 tablet - Active acetaminophen 500 mg tablet take 2 tablet by oral route every 4 - 6 hours as needed not to exceed 8 tablets per 24hrs 1000 MG - Active oxycodone-acetaminophe n 5 mg-325 mg tablet take 1-2 tablets by oral route every 4 hours as needed - Active FLUOXETINE 20MG CAPSULES TAKE 1 CAPSULE BY MOUTH EVERY DAY IN THE MORNING - Active Trelegy Ellipta 100 mcg-62.5 mcg-25 mcg powder for inhalation inhale 1 puff by inhalation route every day at the same time each day 1.00 puff - Active montelukast 10 mg tablet take 1 tablet by oral route every day in the evening 10 MG - Active PreserVision AREDS 14,320 unit-226 mg-200 unit capsule 1 capsule twice daily - Active Vitamin D3 25 mcg (1,000 unit) tablet 1 tablet daily - Active Zyrtec 10 mg tablet take 1 tablet by oral route every day 10 MG - Active ProAir RespiClick 90 mcg/actuation breath activated inhale 2 puff by inhalation route every 4 - 6 hours as needed 180 MCG - Active Procedures Procedure Date COMPREHEN METABOLIC PANEL CMP HEMOGLOBIN A1C HGA1C, GLYCO LIPID PANEL Pt inelig neg scrn depres Admin influenza virus vac RIV3 VACCINE NO PRESERV IM PPPS, subseq visit BODY MASS INDEX DOCD SYST BP LT 130 MM HG DIAST BP < 80 MM HG ROUTINE VENIPUNCTURE IL Pt inelig neg scrn depres OFFICE [id number] Visit Complexity Inherent To E/M 2023 BODY MASS INDEX DOCD SYST BP LT 130 MM HG DIAST BP < 80 MM HG CBC, INC PLATELETS AND DIFFERENTIAL COMPREHEN METABOLIC PANEL CMP HEMOGLOBIN A1C HGA1C, GLYCO THYROID STIMULATION HORMONE(TSH) 2023 VITAMIN B12 (SERUM) ROUTINE VENIPUNCTURE IL OFFICE [id number] BODY MASS INDEX DOCD SYST BP LT 130 MM HG DIAST BP < 80 MM HG DSCHRG MED/CURRENT MED MERGE OFFICE [id number] BODY MASS INDEX DOCD SYST BP LT 130 MM HG DIAST BP < 80 MM HG Pt inelig neg scrn kavitaes FALL RISK ASSESSMENT DOC'D PRES/ABSN URINE INCON ASSESS PNEUMOVAX ADM MEDICARE Pneumococcal Conjugate Vaccine (PCV20) N PPPS, subseq visit BODY MASS INDEX DOCD SYST BP LT 130 MM HG DIAST BP < 80 MM HG CBC, INC PLATELETS AND DIFFERENTIAL COMPREHEN METABOLIC PANEL CMP 3 HEMOGLOBIN A1C HGA1C, GLYCO LIPID PANEL Admin influenza virus vac FLU VACC PRSV FREE INC ANTIG ROUTINE VENIPUNCTURE IL CBC, INC PLATELETS AND DIFFERENTIAL COMPREHEN METABOLIC PANEL CMP 3 HEMOGLOBIN A1C HGA1C, GLYCO Pt inelig neg scrn depres OFFICE [id number] BODY MASS INDEX DOCD SYST BP LT 130 MM HG DIAST BP < 80 MM HG ROUTINE VENIPUNCTURE IL Pt inelig neg scrn depres FALL RISK ASSESSMENT DOC'D PRES/ABSN URINE INCON ASSESS Admin influenza virus vac Flu Vac, quad (RIV4), Preservative And A ntibiotic Free IM PPPS, subseq visit BODY MASS INDEX DOCD SYST BP LT 130 MM HG DIAST BP < 80 MM HG CBC, INC PLATELETS AND DIFFERENTIAL COMPREHEN METABOLIC PANEL CMP HEMOGLOBIN A1C HGA1C, GLYCO LIPID PANEL THYROID STIMULATION HORMONE(TSH) 2021 ROUTINE VENIPUNCTURE IL OFFICE [id number] BODY MASS INDEX DOCD SYST BP LT 130 MM HG DIAST BP 80-89 MM HG Pt inelig neg scrn depres OFFICE [id number] BODY MASS INDEX DOCD SYST BP >= 140 MM HG6 IT DIAST BP 80-89 MM HG BASIC METABOLIC PANEL(BMP) HEMOGLOBIN A1C HGA1C, GLYCO ROUTINE VENIPUNCTURE IL Pt inelig neg scrn depres FALL RISK ASSESSMENT DOC'D PRES/ABSN URINE INCON ASSESS OFFICE [id number] BODY MASS INDEX DOCD SYST BP LT 130 MM HG DIAST BP 80-89 MM HG PPPS, subseq visit BODY MASS INDEX DOCD Pt inelig neg scrn depres Admin influenza virus vac Flu Vac, quad (RIV4), Preservative And A ntibiotic Free IM CBC, INC PLATELETS AND DIFFERENTIAL COMPREHEN METABOLIC PANEL CMP 1 HEMOGLOBIN A1C HGA1C, GLYCO LIPID PANEL THYROID STIMULATION HORMONE(TSH) 2020 ROUTINE VENIPUNCTURE Pt inelig neg scrn depres OFFICE [id number] BODY MASS INDEX DOCD SYST BP LT 130 MM HG DIAST BP < 80 MM HG BASIC METABOLIC PANEL(BMP) HEMOGLOBIN A1C HGA1C, GLYCO ROUTINE VENIPUNCTURE IL Pt inelig neg scrn depres FALL RISK ASSESSMENT DOC'D PRES/ABSN URINE INCON ASSESS Admin influenza virus vac Flu Vac, quad (RIV4), Preservative And A ntibiotic Free IM PPPS, subseq visit BODY MASS INDEX DOCD SYST BP LT 130 MM HG DIAST BP < 80 MM HG PNEUMOVAX ADM MEDICARE PNEUMOVAX IMMUNIZATION CBC, INC PLATELETS AND DIFFERENTIAL COMPREHEN METABOLIC PANEL CMP 0 HEMOGLOBIN A1C HGA1C, GLYCO LIPID PANEL THYROID STIMULATION HORMONE(TSH) 2019 ROUTINE VENIPUNCTURE [place] OFFICE [id number] BODY MASS INDEX DOCD SYST BP LT 130 MM HG DIAST BP 80-89 MM HG Pt inelig neg scrn depres OFFICE [id number] BODY MASS INDEX DOCD SYST BP LT 130 MM HG DIAST BP 80-89 MM HG BASIC METABOLIC PANEL(BMP) HEMOGLOBIN A1C HGA1C, GLYCO ROUTINE VENIPUNCTURE IL THYROID STIMULATION HORMONE(TSH) 2019 Pt inelig neg scrn depres EKG (ELECTROCARDIOGRAM) OFFICE [id number] BODY MASS INDEX DOCD SYST BP LT 130 MM HG DIAST BP 80-89 MM HG Admin influenza virus vac Flu Vac, quad (RIV4), Preservative And A ntibiotic Free IM Advance Directives Directive Yes / No Effective Date File Name No Information Encounters Encounter Description Practice Location Reason(s) For Visit Diagnoses Date Provider Providers Copied on Encounter [facility], [address], [place], [place], [address] , tel: [phone] [facility] No Information 5 Ugo Kelley. [address] [place], [place], [address] , [place]. tel:[phone] Referring Provider: Allie Perea, [address] [place], [address] . tel:[phone] [facility] [place], [address], [place], [place], [address] , [place] tel:[phone] [facility] No Information 5 Ugo Kelley. [address], [place], [address] , [place]. tel:[phone] [facility] [place], [address], [place], [place], [address] , [place] tel:[phone] [facility] No Information 4 Ugo Kelley. [address] [place], [place], [address] , [place]. tel:[phone] [facility], [address], [place], [place], [address] , [place] tel: [phone] [facility] No Information 4 Becca Casillas. [address] [facility], [place] [address], [place], [place], [address] , . tel: [phone] Referring Provider: Allie Perea, [address] [place], [address] . tel:[phone] [facility], [address], [place], [place], [address] , [place] tel: [phone] [facility] Medicare preventive (chief complaint)C hronic Conditions (chief complaint) Body mass index [BMI] 32.0-32.9, adultHyperlipid emia, unspecified hyperlipidemia typeEsophageal strictureRoutin e medical examGeneralized anxiety disorderHypergl ycemiaBenign essential hypertension 4 Ugo Kelley. [address] [place], [place], [address] , [place]. tel: [phone] Referring Provider: Allie Perea, [address] [place], [address] . tel:[phone] [facility], [address], [place], [place], [address] , [place] tel: [phone] [facility] Other low back pain 4 Ugo Kelley. [address] [place], [place], [address] , [place]. tel: [phone] [facility], [address], [place], [place], [address] , [place] tel: [phone] [facility] [place] No Information 4 Ugo Kelley. [address] [place], [address] , [place]. tel: [phone] [facility], [address], [place], [place], [address] , [place] tel: [phone] [facility] [place] No Information 4 Ugo Kelley. [address] [place], [address] , [place]. tel: [phone] [facility], [address], [place], [place], [address] , [place] tel: [phone] [facility] No Information 4 Ugo Kelley. [address] [place], [address] , [place]. tel: [phone] OFFICE JHGHX-YJJ-VL [facility], [address], [place], [address] , [place] tel: [phone] [facility] chronic conditions (chief complaint)C hronic Conditions (chief complaint) Body mass index [BMI] 31.0-31.9, adultOther fatigueGenerali zed anxiety disorderEsophag eal strictureHyperl ipidemia, unspecified hyperlipidemia type 4 Ugo Kelley. [address], [place], [address] , [place]. tel: [phone] Referring Provider: Allie Perea, [address] [place], [address] . tel:[phone] [facility], [address], [place], [place], [address] , [place] tel: [phone] [facility] No Information 4 Becca Katzn. [address] [place] [address], [id number] , [place]. tel: [phone] Referring Provider: Allie Perea, [address] [place], [address] . tel:[phone] [facility], [address], [place], [place], [address] , [place] tel: [phone] [facility] Benign essential hypertensionHyp erlipidemia, unspecified hyperlipidemia typeHyperglycem iaFatigue, unspecified type 4 Ugo Kelley. [address] [place], [address] , [place]. tel: [phone] Referring Provider: Allie Perea, [address] [place], [address] . tel:[phone] OFFICE XFIEV-UQT-IN [facility], [address], [place], [place], [address] , [place] tel: [phone] [facility] Chronic Conditions (chief complaint) Pain, joint, shoulder, rightPre-operat nae clearanceBenign essential hypertensionGas troesophageal reflux disease, unspecified whether esophagitis presentMajor depressive disorder in partial remission, unspecified whether recurrentGenera lized anxiety disorderMild intermittent asthma, unspecified whether complicatedAort ic atherosclerosis Thrombocytopeni aMultinodular goiterCoronary artery disease involving ho-chunk coronary artery of ho-chunk heart without angina pectorisHyperli pidemia, unspecified hyperlipidemia type 4 Talbert Edel. [address] [place], [place], [address] , [place]. tel: [phone] Referring Provider: Allie Perea, [address] [place], [address] . tel:[phone] [facility], [address], [place], [address] , [place] tel: [phone] [facility] No Information 4 Ugo Kelley. [address], [address] , [place]. tel: [phone] [facility], [address], [place], [place], [address] , [place] tel: [phone] [facility] No Information 4 Ugo Kelley. [address] [place], [place], [address] , [place]. tel: [phone] Referring Provider: Allie Perea, [address] [place], [address] . tel:[phone] OFFICE MBMAJ-XMW-HD PANDED [facility], [address], [place], [place], [address] , [place] tel: [phone] [facility] severe low back pain (chief complaint) Acute right-sided low back pain with right-sided sciaticaRight hip pain 4 Talbert Edel. [address] [place] [address], [place], [address] , [place]. tel: [phone] Referring Provider: Allie Perea, [address] [place], [address] . tel:[phone] [facility], [address], [place], [place], [address] , tel: [phone] [facility] Kidney stones 4 Ugo Kelley. [address] [place], [address] , [place]. tel: [phone] [facility], [address], [place], [place], [address] , tel: [phone] [facility] Surgical site infection 4 Ugo Kelley. [address] [place], [address] , [place]. tel: [phone] [facility], [address], [place], [place], [address] , tel: [phone] [facility] Coronary artery disease involving ho-chunk coronary artery of ho-chunk heart without angina pectoris 3 Ugo Kelley. [address], [place], [address] , [place]. tel: [phone] [facility], [address], [place], [place], [address] , [place] tel: [phone] [facility] No Information 3 Ugo Kelley. [address], [address] , [place]. tel: [phone] [facility], [address], [place], [address] , [place] tel: [phone] [facility] Medicare preventive (chief complaint)C hronic Conditions (chief complaint) Body mass index [BMI] 36.0-36.9, adultMild intermittent asthma, unspecified whether complicatedGast roesophageal reflux disease, unspecified whether esophagitis presentBenign essential hypertensionRou pamella medical examEsophageal strictureMorbid obesityMajor depressive disorder in partial remission, unspecified whether recurrentGenera lized anxiety disorder 3 Ugo Kelley. [address], [place], [address] , [place]. [phone] Referring Provider: Allie Perea, [address] [place], [address] . tel:[phone] [facility], [facility] [address], [place], [place], [address] , [place] tel: [phone] [facility] No Information 3 Becca Casillas. [address], [address] , [place]. tel: [phone] Referring Provider: Allie Perea, [address] [place], [address] . tel:[phone] [facility], [address], [place], [place], [address] , [place] tel: [phone] [facility] Benign essential hypertensionHyp erlipidemia, unspecified hyperlipidemia typePrediabetes 3 Ugo Kelley. [address] [place], [place], [address] , [place]. tel:[phone] Referring Provider: Allie Perea, [address] [place], [address] . [phone] [facility], [facility] [address], [place], [place], [address] , [place] tel: [phone] [facility] No Information 3 Becca Casillas. [address], [address] , [place]. tel: [phone] Referring Provider: Allie Perea, [address] [place], [address] . tel:[phone] OFFICE ZBTOO-PAK-EU [facility], [address], [place], [place], [address] , [place] tel: [phone] [facility] Chronic conditions (chief complaint)C hronic Conditions (chief complaint) Body mass index [BMI] 34.0-34.9, adultGastroesop hageal reflux disease, unspecified whether esophagitis presentHyperlip idemia, unspecified hyperlipidemia typeBenign essential hypertensionPre diabetesCoronar y artery disease involving ho-chunk coronary artery of ho-chunk heart without angina pectorisAortic atherosclerosis Major depressive disorder in partial remission, unspecified whether recurrentMild intermittent asthma, unspecified whether complicatedMult inodular goiterThrombocy topenia 3 Ugo Kelley. [address], [place], [address] , . tel: [phone] Referring Provider: Allie Perea, [address] [place], [address] . tel:[phone] [facility], [address], [place], [place], [address] , tel: [phone] [place] No Information 2 Ugo Kelley. [address], [place], [address] , . tel: [phone] [facility], [address], [place], [place], [address] , tel: [phone] [place] Medicare preventive (chief complaint)C hronic Conditions (chief complaint) Body mass index [BMI] 35.0-35.9, adultBenign essential hypertensionHyp erlipidemia, unspecified hyperlipidemia typeRoutine medical examVenous insufficiencyGa stroesophageal reflux disease, unspecified whether esophagitis presentThromboc ytopeniaMorbid obesity 2 Ugo Kelley. [address], [place], [address] , . tel: [phone] Referring Provider: Allie Perea, [address] [place], [address] . tel:[phone] [facility], [address], [place], [place], [address] , tel: [phone] [place] Benign essential hypertensionPre diabetesHyperli pidemia, unspecified hyperlipidemia typeThyroid nodule 2 Ugo Kelley. [address], [place], [address] , . tel: [phone] Referring Provider: Allie Perea, [address] [place], [address] . tel:[phone] OFFICE RQWDE-IFI-IF [facility], [address], [place], [place], [address] , tel: [phone] [facility] evaluate sore throat (chief complaint) Body mass index [BMI] 35.0-35.9, adultSore throatHoarsenes sMultinodular goiter 2 Ugo Kelley. [address], [place], [address] , [place]. tel:[phone] Referring Provider: Allie Perea, [address] [place], [address] . tel:[phone] OFFICE OPRNZ-HAO-TL [facility], [address], [place], [place], [address] , tel: [phone] [facility] Chronic Conditons (chief complaint)C hronic Conditions (chief complaint) Body mass index [BMI] 34.0-34.9, adultMultinodul ar goiterHyperlipi demia, unspecified hyperlipidemia typeMajor depressive disorder in partial remission, unspecified whether recurrentBenign essential hypertensionGas troesophageal reflux disease, unspecified whether esophagitis presentMild intermittent asthma, unspecified whether complicatedPred iabetesNauseaAo rtic atherosclerosis Coronary artery disease involving ho-chunk coronary artery of ho-chunk heart without angina pectoris 2 Ugo Kelley. [address] [place], [place], [address] , . tel:[phone] Referring Provider: Allie Perea, [address] [place], [address] . tel:[phone] OFFICE IVYBD-RHS-VT [facility], [address], [place], [place], [address] , tel: [phone] [facility] mass in hand (chief complaint) Body mass index [BMI] 33.0-33.9, adultCyst of skinHistory of renal stoneLow bone mass Dec-3 1 Talbert Edel. [address] [place], [place], [address] , . [phone] Referring Provider: Allie Perea, [address] [place], [address] . tel:[phone] [facility], [address], [place], [place], [address] , tel: [phone] [place] Medicare preventive (chief complaint)C hronic Conditions (chief complaint)a cute (chief complaint) Routine medical examMultinodula r goiterHyperlipi demia, unspecified hyperlipidemia typeMajor depressive disorder in partial remission, unspecified whether recurrentBenign essential hypertensionMil d intermittent asthma, unspecified whether complicatedGast roesophageal reflux disease, unspecified whether esophagitis presentDysphagi a, unspecifiedPred iabetesAcute nonintractable headache, unspecified headache typeBody mass index [BMI] 34.0-34.9, adult Mar-0 1 Nitish Hollingsworth. [address] [place], [place], [address] , . tel:[phone] Referring Provider: Allie Perea, [address] [place], [address] . [phone] [facility], [address], [place], [place], [address] , tel: [phone] [place] Benign essential hypertensionHyp erlipidemia, unspecified hyperlipidemia typeHyperglycem iaThyroid nodule 1 Ugo Kelley. [address] [place] [address], [address] , . [phone] Referring Provider: Allie Perea, [address] [place], [address] . [phone] OFFICE GKZSU-RBJ-UM TAILED [facility], [address], [place], [place], [address] , tel: [phone] [place] 6 month follow up HTN (chief complaint) Body mass index (BMI) 34.0-34.9, adultHyperlipid emia, unspecified hyperlipidemia typeMajor depressive disorder in partial remission, unspecified whether recurrentBenign essential hypertensionMil d intermittent asthma, unspecified whether complicatedMult inodular goiterGastroeso phageal reflux disease, unspecified whether esophagitis presentDysphagi a, unspecified typeHistory of esophageal stricture 1 Ugo Kelley. [address], [place], [address] , . tel: [phone] Referring Provider: Allie Perea, [address] [place], [address] . tel:[phone] [facility], [address], [place], [place], [address] , tel: [phone] [place] Benign essential hypertensionHyp erglycemia 1 Ugo Kelley. [address], [place], [address] , . tel: [phone] Referring Provider: Allie Perea, [address] [place], [address] . tel:[phone] [facility], [address], [place], [place], [address] , tel: [phone] [facility] No Information 1 Ugo Kelley. [address] [place], [place], [address] , . tel: [phone] [facility], [address], [place], [place], [address] , tel: [phone] [place] Medicare preventive (chief complaint)C hronic Conditions (chief complaint) Body mass index (BMI) 35.0-35.9, adultBenign essential hypertensionMaj or depressive disorder in partial remission, unspecified whether recurrentHyperl ipidemia, unspecified hyperlipidemia typeMild intermittent asthma, unspecified whether complicatedRout ine medical examEncntr screen mammogram for malignant neoplasm of breastPostmenop ausal 0 Ugo Kelley. [address], [place], [address] , . tel: [phone] Referring Provider: Allie Perea, [address] [place], [address] . tel:[phone] [facility], [address], [place], [address] , [place] tel: [phone] [place] Multinodular goiterHyperlipi demia, unspecified hyperlipidemia typeBenign essential hypertensionHyp erglycemia Jan- 0 Ugo Kelley. [address], [place], [address] , [place]. tel:[phone] Referring Provider: Allie Perea, [address] [place], [address] . tel:[phone] [facility], [address], [place], [place], [address] , [place] tel: [phone] [place] Telehealth (chief complaint)v omiting clear; no other symptoms (chief complaint) Vomiting without nausea, intractability of vomiting not specified, unspecified vomiting type Oct- 0 Nitish Hollingsworth. [address] [place], [address] , [place]. tel:[phone] Referring Provider: Edel Talbert, [address] [place], [address] . tel:[phone] [facility], [address], [place], [place], [address] , [place] tel: [phone] [place] f/u chronic conditions (chief complaint)C hronic Conditions (chief complaint) Body mass index (BMI) 34.0-34.9, adultHyperlipid emia, unspecified hyperlipidemia typeBenign essential hypertensionMul tinodular goiterMajor depressive disorder in partial remission, unspecified whether recurrentNausea Shortness of breath Jul- 0 Ugo Kelley. [address], [place], [address] , [place]. tel:[phone] Referring Provider: Allie Perea, [address] [place], [address] . tel:[phone] [facility], [address], [place], [place], [address] , tel: [phone] [facility] Benign essential hypertensionEle vated glucoseMultinod ular goiter 0 Ugo Kelley. [address] [place], [place], [address] , . tel:[phone] Referring Provider: Allie Perea, [address] [place], [address] . [phone] [facility], [address], [place], [place], [address] , tel: [phone] [place] Thyroid nodule 0 Ugo Kelley. [address], [place], [address] , [place]. tel: [phone] [facility], [address], [place], [place], [address] , tel: [phone] [place] Thyroid nodule 0 Ugo Kelley. [address], [place], [address] , . tel: [phone] OFFICE MXCKL-DTY-PC MP-MED [facility], [address], [place], [place], [address] , tel: [phone] [place] Establish Care (chief complaint) Body mass index (BMI) 34.0-34.9, adultPalpitatio nsShortness of breathPhrenic nerve paralysisBenign essential hypertensionHyp erlipidemia, unspecified hyperlipidemia typeMajor depressive disorder in partial remission, unspecified whether recurrent 9 Ugo Kelley. [address] [place], [place], [address] , . tel:[phone] Referring Provider: Allie Perea, [address] [place], [address] . tel:[phone] Family History Family Member Type Diagnosis Age At Onset Brother Problem (finding) chronic obstructive damon g disease Father Problem (finding) Hearing deficiency Father Problem (finding) chronic obstructive damon g disease Brother Problem Cancer, lung Brother Problem Coronary artery disease Mother Problem (finding) Arthritis Mother Problem (finding) coronary arterioscleros is Brother Problem (finding) Hearing deficiency Brother Problem (finding) hypertension Brother Problem (finding) Cardiovascular disease Mother Problem (finding) osteoporosis Immunizations Vaccine Date Status Comments Flublok, Trivalent, preservative free, 18+ yrs, 0.5mL dosage administered Source: New Immuniza tion Record Pneumococcal conjugate PCV20 administered Source: New Immunization Record Fluzone High-Dose, high dose , preservative free administered Source: New Immuniza tion Record Tdap administered Note: done at [facility] (bit by cat) ; Source: Source Unspecified Flublok, quadrivalent, preservative free, 0.5mL dosage administered Source: New Immunization Record SHINGRIX (Zoster vaccine recombinant, adjuvanted) administered Note: Adela DYER ; Source: Other Registry SHINGRIX (Zoster vaccine recombinant, adjuvanted) administered Note: date not accurate ; Source: Source Unspecified Flublok, quadrivalent, preservative free, 0.5mL dosage administered Source: New Immunization Record [employer] ([employer]) COVID19 Vaccine, 0.3mL per dose, 2 doses, administered 21 days apart administered Note: GWENDOLYN Christensen ; Source: Other Registry Pfizer-BioNTech COVID19 Vaccine, 0.3mL per dose, 2 doses, administered 21 days apart administered Note: Ludwin ; Source: Public Agency Pfizer-BioNTech COVID19 Vaccine, 0.3mL per dose, 2 doses, administered 21 days apart administered Note: [place] ; Source: Public Agency Pneumococcal polysaccharide PPV23 administered Source: New Immuniza tion Record Flublok, quadrivalent, preservative free, 0.5mL dosage administered Source: New Immunization Record Flublok, quadrivalent, preservative free, 0.5mL dosage administered Source: New Immunization Record Payers Payer name Insurance type Covered green party ID Authoriza tion(s) [place] [id number] [place] [id number] [place] [id number] [place] [id number] [place] [id number] [place] [id number] [place] [id number] [place] [id number] [place] [id number] [place] [id number] [place] [id number] [place] [id number] [place] [id number] [id number] [place] [id number] [place] [id number] Social History Type Description Quantity Date Captured Comments Sex Female Smoking Status No Information Sexual Orientation Straight or heterosexual Gender Identity Female Chief Complaint And Reason For Visit No Information Reason For Referral Reason For Referral No Information Plan Of Treatment Date Type Action Status Goal Dietary manageme nt education, guidance, and counseling completed Goal Dietary manageme nt education, guidance, and counseling completed Goal Dietary manageme nt education, guidance, and counseling completed Goal Dietary manageme nt education, guidance, and counseling completed Goal Dietary manageme nt education, guidance, and counseling completed Goal Dietary manageme nt education, guidance, and counseling completed Goal Dietary manageme nt education, guidance, and counseling completed Goal Dietary manageme nt education, guidance, and counseling completed Goal Dietary manageme nt education, guidance, and counseling completed Goal Dietary manageme nt education, guidance, and counseling completed Goal Dietary manageme nt education, guidance, and counseling completed Goal Dietary manageme nt education, guidance, and counseling completed Goal Dietary manageme nt education, guidance, and counseling completed Referral Ordered: Peter Tompkins MD -Gastroenterology (related to Esophageal stricture) ordered Referral Referred To: [address], [address] [phone] Ordered: SCREENING MAMMOGRAM (CAD) ordered Referral Referred To: Peter Tompkins MD [facility] [place], [address] [phone] Ordered: Referrals: Gastroenterology. Peter Tompkins MD. Evaluation/diagnostic/treatment - Level 3 ordered Referral Referred To: [facility] Ordered: Referrals: Pain Medicine. [facility]. Location: [place], [place]. Evaluation/diagnostic/treatment - Level 3 ordered Referral Ordered: X-ray of lumbar spine, two views ordered Referral Ordered: CT, abdomen and pelvis, without contrast ordered Referral Ordered: Dr Rama Perez -Hand surgery (related to Surgical site infection) ordered Referral Referred To: Dr Rama Perez Ordered: Referrals: Hand surgery. Dr Rama Perez. Evaluation/diagnostic/treatment - Level 3 ordered Referral Ordered: Electrocardiography in adult ordered Referral Ordered: CT abdomen and pelvis without then with contrast ordered Referral Referred To: James Granger MD [address] [place], [address] [phone] Ordered: Referrals: Otolaryngology. James Granger MD. Evaluation/diagnostic/treatment - Level 3 ordered Referral Referred To: Xiang Henning MD [address] [facility] [address] [place], [address] [phone] Ordered: Referrals: Gastroenterology. Xiang Henning MD. Evaluation/diagnostic/treatment - Level 3 ordered Referral Referred To: [address] [place] [address] [address] [place], [address] [phone] Ordered: US thyroid ordered Referral Referred To: [facility] [address] [place], [address] [phone] Ordered: SCREENING MAMMOGRAM (CAD) Bilateral breast ordered Referral Referred To: [address] [facility] [address] [place], [address] [phone] Ordered: DEXA of spine and hip ordered Referral Referred To: Keshawn Albert MD [address] [place], [address] [phone] Ordered: Referrals: Gastroenterology. Keshawn Albert MD. Evaluation/diagnostic/treatment - Level 3 ordered Referral Ordered: US guided aspiration of thyroid Appointment date/timeframe: 06/15/2019 ordered Referral Ordered: Thyroid ultrasound Appointment date/timeframe: 05/30/2019 ordered Referral Referred To: [facility] Ordered: Referrals: Pulmonology. [facility]. Evaluation/diagnostic/treatment - Level 3 Appointment date/timeframe: 04/16/2019 ordered Referral Ordered: EKG (ELECTROCARDIOGRAM) ordered Referral Referred To: Dr. Walker Cifuentes Ordered: Referrals: Cardiology. Dr. Walker Cifuentes. Evaluation/diagnostic/treatment - Level 3 Appointment date/timeframe: 04/16/2019 ordered Appointment Beena Ortiz BOOKED Appointment Beena Ortiz BOOKED History Of Present Illness Encounter Date Complaint History Of Prese nt Illness Chronic Conditions *See Chronic Conditions HPI Medicare preventive A Health Ris k Assessment has been performed and reviewed. The patient has not felt depressed and has had interest and pleasure doing things recently. Functional Status: (Functional status has not changed) on 04/02/2024. Cognitive Status: (Cognitive status has not changed) on 04/02/2024. The ''Up and Go'' test took less than 30 seconds andthe patient does not need help with activities of daily living. The patient is not at risk for falls. The patient has not fallen in the last year. The fall(s) did not result in injury. Patient's activity level is sedentary. Patient exercises 3-4 times/week. The patient has firearms in the home. The patient does not have smoke detectors, carbon monoxide detectors in the home. Patient reports not using a seatbelt in vehicles. Patient reports a healthy diet. Relevant history is positive for alcohol use. Patient is a former tobacco user. chronic conditions Chronic Conditions *See Chronic Conditions HPI Chronic Conditions *See Chronic Conditions HPI severe low back pain 77 year old female who presents with right low back pain. Her pain started on the right hip a few weeks ago and started to spread to right low back and right groin. She reported feeling like previous kidney stones. Pain comes and goes. Pain is worse with standing. Pain radiates down her right thigh. Pain is worsening over time. She has taken Tylenol with minimal relief. Denies fever, hematuria, dysuria, abdominal pain, vomiting, diarrheaPatient is scheduled to see ortho at [facility] on 06/20/2023 for these symptoms. She is also scheduled for left TKR in a few weeks Chronic Conditions A Health Risk Assessment has been performed and reviewed. The patient has not felt depressed and has had interest and pleasure doing things recently. Functional Status: (Functional status has not changed) on 03/29/2023. Cognitive Status: (Cognitive status has not changed) on 03/29/2023. The ''Up and Go'' test took less than 30 seconds andthe patient does not need help with activities of daily living. The patient is not at risk for falls. The patient has fallen 1 times in the last year. The fall(s) did not result in injury. Patient's activity level is sedentary. Patient exercises 3-4 times/week. The patient has firearms in the home. The patient does not have smoke detectors, carbon monoxide detectors in the home. Patient reports not using a seatbelt in vehicles. Patient reports a healthy diet. Relevant history is positive for alcohol use. Patient is a former tobacco user. Medicare preventive A Health Ris k Assessment has been performed and reviewed. The patient has not felt depressed and has had interest and pleasure doing things recently. Functional Status: (Functional status has not changed) on 03/29/2023. Cognitive Status: (Cognitive status has not changed) on 03/29/2023. The ''Up and Go'' test took less than 30 seconds andthe patient does not need help with activities of daily living. The patient is not at risk for falls. The patient has fallen 1 times in the last year. The fall(s) did not result in injury. Patient's activity level is sedentary. Patient exercises 3-4 times/week. The patient has firearms in the home. The patient does not have smoke detectors, carbon monoxide detectors in the home. Patient reports not using a seatbelt in vehicles. Patient reports a healthy diet. Relevant history is positive for alcohol use. Patient is a former tobacco user. Chronic conditions Chronic Conditions *See Chronic Conditions HPI Chronic Conditions *See Chronic Conditions HPI Medicare preventive A Health Ris k Assessment has been performed and reviewed. The patient has not felt depressed and has had interest and pleasure doing things recently. Functional Status: (Functional status has not changed) on 03/23/2022. Cognitive Status: (Cognitive status has not changed) on 03/23/2022. The ''Up and Go'' test took less than 30 seconds andthe patient does not need help with activities of daily living. The patient is not at risk for falls. The patient has not fallen in the last year. The fall(s) did not result in injury. Patient's activity level is sedentary. Patient exercises 3-4 times/week. The patient has firearms in the home. The patient does not have smoke detectors, carbon monoxide detectors in the home. Patient reports not using a seatbelt in vehicles. Patient reports a healthy diet. Patient reports taking a calcium supplement. Patient reports taking a vitamin D supplement. Relevant history is positive for alcohol use. Patient is a former tobacco user. evaluate sore throat Pt. here wi th sore throat that started approx 2 weeks ago worse on the left. States she sometimes has worse pain with talking and voice gets hoarse at times. No recent PND and no nasal congestion.Sometimes feels she has difficulty talking.No problems swallowing.Has GERD but no recent worsening.Has a multinodular goiter stable without increased neck swelling. Last thyroid u/s results reviewed with pt. that showed stable size of nodule. Had prior biopsy of 2 of the thyroid nodules showing benign pathology. Chronic Conditons Chronic Conditions *See Chronic Conditions HPI mass in hand 75 year old mimi murray who presents for lump in right hand. She noticed a small mass that is mobile in right dorsal hand. She has no pain, discoloration. She recently had surgery but had no IV in that hand. She reports that it is unchanged since she first noticed it. Chronic Conditions *See Chronic Conditions HPI Medicare preventive A Health Ris k Assessment has been performed and reviewed. Functional Status: (Functional status has not changed) on 03/10/2021. Cognitive Status: (Cognitive status has not changed) on 03/10/2021. The ''Up and Go'' test took less than 30 seconds and the patient does not need help with activities of daily living. The patient is not at risk for falls. The patient has not fallen in the last year. The fall(s) did not result in injury. Patient's activity level is sedentary. Patient exercises 3-4 times/week. The patient has firearms in the home. The patient does not have smoke detectors, carbon monoxide detectors in the home. Patient reports not using a seatbelt in vehicles. Patient reports a healthy diet. Patient reports taking a calcium supplement. Patient reports taking a vitamin D supplement. Relevant history is positive for alcohol use. Screening services were reviewed and updated. Chronic Conditions acute Patient reports getting headaches for the past few weeks. Located in sinuses per patient. She feels that is because of allergies or sinus problems . She takes a daily antihistamines. 6 month follow up HTN Benign ess ential hypertensionStableBP controlled on medication without SE's- denies any CP or SOB or dizziness.Major depressive disorder in partial remission, unspecified whether recurrentStableHas MDD in partial remission on fluoxetine without SE's. Feels she is coping with stressors well without SE's. No SI's or HI's.Hyperlipidemia, unspecified hyperlipidemia typeStablelipids controlled on medication without SE'sMild intermittent asthma, unspecified whether complicatedStableno recent wheezing or SOB. Has been having intermittent episodes of dysphagia with feeling like foods thicker in texture get stuck in esophagus at times. Having more GERD symptoms also. Had prior esophageal stricture and had dilation done previously.Has multinodular goiter due for f/u u/s. No neck swelling or hoarseness. Medicare preventive The patient has not felt depressed and has had interest and pleasure doing things recently. Functional Status: (Functional status has not changed) on 01/31/2020. Cognitive Status: (Cognitive status has not changed) on 01/31/2020. The ''Up and Go'' test took less than 30 seconds and the patient does not need help with activities of daily living. The patient is not at risk for falls. The patient has not fallen in the last year. The fall(s) did not result in injury. The patient has firearms in the home. The patient does not have smoke detectors, carbon monoxide detectors in the home. Patient reports not using a seatbelt in vehicles. Patient reports taking a calcium supplement. Patient reports taking a vitamin D supplement. Patient does not take a multivitamin. Relevant history is positive for alcohol use. Patient is a former tobacco user. Chronic Conditions *See Chronic Conditions HPI Telehealth Telehealth visit done today via face to face audio/visual call with pt's verbal consent due to restrictions from the COVID pandemic. All issues as below were discussed and addressed but no physical exam was performed unless allowed by visual confirmation on the video visit. This was performed while I was in my office in [place], [place], and pt. was in their home in [place], [place]. vomiting clear; no o ther symptoms 74 year old female who presents with vomiting for the past 4 months. Her symptoms have been present since her hiatal hernia surgery over a year ago. She reports sudden urge to vomit. It is mostly clear fluid unless she has just eaten. She has no nausea preceding. She has no abdominal pain. Her symptoms are increasing in frequency. It is random and cannot be provoked. It is not positional or exacerbated by foods. She has no change in bowel habits. She has seen Dr Albert GI, in the past for screening colonoscopy. f/u chronic conditions Pt. was s papa via Telehealth encounter. I was in my office in [place], [place], and pt. was in her home in [place], [place]. Telehealth visit done today through [facility] [facility] with pt's verbal consent due to restrictions from the COVID pandemic. All issues as below were discussed and addressed but no physical exam was performed unless allowed by visual confirmation on the video visit. Chronic Conditions *See Chronic Conditions HPI Establish Care Pt. here to get established. Pt. reports that she has been having intermittent palpitations with irregular heart beat noted when checking her blood pressure. Had stress test done last year that was normal. Had holter monitor a year ago that showed some skipped beats but otherwise was normal. Has not seen a lithographic proofer in the past. Has had increased shortness of breath with exertion and sometimes when laying down at night. Smoked for approx. 15 years ago quit 30 years ago. No prior h/o COPD. Had prior hiatal hernia repair recently diagnosed with elevated hemidiaphragm with phrenic nerve paralysis.Has HTn on lisinopril with BP stable. Sometimes does not take med every day as sometimes BP runs lower. Has hyperlipidemia on atorvastatin with recent lipid controlled.Has major depression in partial remission on fluoxetine and aripiprazole with improvement in mood since aripiprazole was added a couple of months ago. Has prediabetes on metformin twice daily. Functional Status Date Functional Assessmen t No Information Instructions Date Instruction Additional Infor mation continue diet low in sugar check labs today Related to Hyperglycemia continue Buspirone Related to Ge neralized anxiety disorder Continue current medications Rel ated to Benign essential hypertension Refer to Dr. Jeremy Tompkins at [facility] for evaluation with upper endoscopyfollow up if any problems swallowing or any vomitingcontinue pantoprazole Related to Esophageal stricture continue atorvastatincheck labs today Related to Hyperlipidemia, unspecified hyperlipidemia type Followup in 6 months Continue yearly mammograms- orders given for mammogram and bone densityFlu vaccine given todaytry to do some regular exercise Related to Routine medical exam Immunizations Dietary management e ducation, guidance, and counseling Related to Body mass index (BMI) 32.0-32.9, adult Fall Risk Prevention Urinary Incontinence follow up if any pro blems swallowing or any vomitingcontinue pantoprazole Related to Esophageal stricture continue buspirone Related to Ge neralized anxiety disorder continue atorvastatin Related to Hyperlipidemia, unspecified hyperlipidemia type Start back on your d aily multivitamin Try to do some regular walking as you are able Related to Other fatigue Dietary management e ducation, guidance, and counseling Related to Body mass index (BMI) 31.0-31.9, adult continue close monitoring Relate d to Multinodular goiter Continue to follow w ith orthopedic doctor Related to Pain, joint, shoulder, right Cont. medication as prescribed.Cont. to work on low fat diet and increase regular exercise with goal of walking at least 30 min. 3 to 5 times per week. Related to Hyperlipidemia, unspecified hyperlipidemia type Continue to follow w ith orthopedic doctorWe will send clearance form to their office Related to Pre-operative clearance continue atorvastati n and close monitoring Related to Coronary artery disease involving ho-chunk coronary artery of ho-chunk heart without angina pectoris This is a common fin ding on chest xray with mild plaque build up on the aorta. Continue to work on good blood pressure and cholesterol control to reduce cardiovascular risk. Related to Aortic atherosclerosis continue fluoxetine Related to M ajdamir depressive disorder in partial remission, unspecified whether recurrent continue Trelegy inh aler and close follow up with lithographic proofer Related to Mild intermittent asthma, unspecified whether complicated We will continue to monitor Rela janay to Thrombocytopenia continue fluoxetine and buspiron e Related to Generalized anxiety disorder Continue pantoprazole Related to Gastroesophageal reflux disease, unspecified whether esophagitis present continue current med ication Cont. to work on increasing regular walking and cont. to limit salt intake. Monitor home BP's and call if BP consistently running above 140/90. Related to Benign essential hypertension Take Medrol dosepak as prescribedApply lidocaine patches as neededGet xray as ordered Related to Right hip pain Take Medrol dosepak as prescribedApply lidocaine patches as neededGet xray as ordered Related to Acute right-sided low back pain with right-sided sciatica continue fluoxetine and buspiron e Related to Generalized anxiety disorder continue to work on low fat diet and regular exercise Related to Morbid obesity follow up if any vom iting or difficulty swallowing Related to Esophageal stricture continue fluoxetine Related to M ajor depressive disorder in partial remission, unspecified whether recurrent continue Trelegy inh aler and close follow up with lithographic proofer Related to Mild intermittent asthma, unspecified whether complicated Followup in 6 months Continue yearly mammogramsPrevnar 20 given todayYou can get the newest COVID vaccine and the new RSV vaccine at the [facility] WITH DR. ALBERT'S OFFICE TO SEE WHEN YOU ARE DUE FOR YOUR NEXT COLONOSCOPY- CALL Related to Routine medical exam Continue pantoprazole Related to Gastroesophageal reflux disease, unspecified whether esophagitis present continue current med ication Cont. to work on increasing regular walking and cont. to limit salt intake. Monitor home BP's and call if BP consistently running above 140/90. Related to Benign essential hypertension Immunizations Dietary management e ducation, guidance, and counseling Related to Body mass index (BMI) 36.0-36.9, adult Urinary Incontinence Fall Risk Prevention continue fluoxetine Related to M ajor depressive disorder in partial remission, unspecified whether recurrent continue Trelegy inh aler and close follow up with lithographic proofer Related to Mild intermittent asthma, unspecified whether complicated continue close monitoring Relate d to Multinodular goiter check labs today Related to Thro mbocytopenia continue atorvastati n and close monitoring Related to Coronary artery disease involving ho-chunk coronary artery of ho-chunk heart without angina pectoris Cont. medication as prescribed.Check labs in 6 monthsCont. to work on low fat diet and increase regular exercise with goal of walking at least 30 min. 3 to 5 times per week. Related to Hyperlipidemia, unspecified hyperlipidemia type Continue pantoprazole Related to Gastroesophageal reflux disease, unspecified whether esophagitis present STOP THE METFORMINCh griselda labs todayTry to follow diet low in sugar and carbsIncrease regular exercise Related to Prediabetes continue current med ication Cont. to work on increasing regular walking and cont. to limit salt intake. Monitor home BP's and call if BP consistently running above 140/90. Related to Benign essential hypertension This is a common fin ding on chest xray with mild plaque build up on the aorta. Continue to work on good blood pressure and cholesterol control to reduce cardiovascular risk. Related to Aortic atherosclerosis Dietary management e ducation, guidance, and counseling Related to Body mass index (BMI) 34.0-34.9, adult continue to work on low fat diet and regular exercise Related to Morbid obesity recommend compressio n stockingstry to elevate legs as much as possible Related to Venous insufficiency Continue pantoprazole Related to Gastroesophageal reflux disease, unspecified whether esophagitis present Recommend cutting ba ck on platelet and blood donations since your platelet count is lower todayHold off on any further donations for the next couple of months Related to Thrombocytopenia Followup in 6 months Continue yearly mammogramsFlu vaccine given todayRecommend cutting back on intake of wine Related to Routine medical exam continue current med ication Cont. to work on increasing regular walking and cont. to limit salt intake. Monitor home BP's and call if BP consistently running above 140/90. Related to Benign essential hypertension Cont. medication as prescribed.Cont. to work on low fat diet and increase regular exercise with goal of walking at least 30 min. 3 to 5 times per week. Related to Hyperlipidemia, unspecified hyperlipidemia type Dietary management e ducation, guidance, and counseling Related to Body mass index (BMI) 35.0-35.9, adult Immunizations Take a copy of your thyroid ultrasound to the ENT's office Related to Multinodular goiter Refer to Dr. Hoover /Hever Bear water intakeIncrease salt water gargles Related to Sore throat Refer to Dr. Hoover /Hever Bear water intakeIncrease salt water gargles Related to Hoarseness Dietary management e ducation, guidance, and counseling Related to Body mass index (BMI) 35.0-35.9, adult Try to eat small diana quent mealsRx sent for ondansetron to take as needed for severe nauseaFollow up with your GI doctor if you develop any increased vomiting or difficulty swallowing or other worsening symptoms Related to Nausea Status: Able to self -manage condition. Barriers: No barriers to goal achievement have been identified.continue to work on good BP and lipid control Related to Coronary artery disease involving ho-chunk coronary artery of ho-chunk heart without angina pectoris This is a common fin ding on chest xray with mild plaque build up on the aorta. Continue to work on good blood pressure and cholesterol control to reduce cardiovascular risk. Related to Aortic atherosclerosis Check labs todayTry to follow diet low in sugar and carbsIncrease regular exercise Related to Prediabetes Continue regular fol low up with your lithographic proofer, Dr. Sharif Lunsford Inhaleralbuterol inhaler as neededTry to increase regular walkingGet your 4th COVID vaccine booster if it has been 4 months since your last dose Related to Mild intermittent asthma, unspecified whether complicated Check ultrasound of thyroidMonitor for any symptoms such as voice changes, difficulty swallowing Related to Multinodular goiter continue current med ication Cont. to work on increasing regular walking and cont. to limit salt intake. Monitor home BP's and call if BP consistently running above 140/90. Related to Benign essential hypertension Cont. medication as prescribed.Cont. to work on low fat diet and increase regular exercise with goal of walking at least 30 min. 3 to 5 times per week. Related to Hyperlipidemia, unspecified hyperlipidemia type Continue medications Related to Gastroesophageal reflux disease, unspecified whether esophagitis present continue fluoxetineS tatus: Able to self-manage condition. Goals: Your goal is to manage stress. Barriers: No barriers to goal achievement have been identified. Related to Major depressive disorder in partial remission, unspecified whether recurrent Immunizations Dietary management e ducation, guidance, and counseling Related to Body mass index (BMI) 34.0-34.9, adult Continue taking calc ium and vitamin DDo not exceed 1000 mg of calcium in supplement and dietary. You can look at the food labels on your dairy products to determine how much calcium you are getting in your diet Related to Low bone mass Stay hydratedFollow with urologist as they recommend Related to History of renal stone Monitor symptoms and contact us if this worsens Related to Cyst of skin Urinary Incontinence Dietary management e ducation, guidance, and counseling Related to Body mass index (BMI) 33.0-33.9, adult Fall Risk Prevention Continue with antihi stamineTry Flonase OTCContact us if headaches worsen Related to Acute nonintractable headache, unspecified headache type Continue to follow with GI Relat ed to Dysphagia, unspecified Continue Metformin a nd we will continue to monitor Related to Prediabetes Continue medications Related to Gastroesophageal reflux disease, unspecified whether esophagitis present Followup in 6 months YOU WERE UPDATED ON FLU VACCINESchedule your mammogram soon Recommend the new Shingrix vaccine- check with insurance to find out what your insurance coverage is for this and go to the pharmacy for administration if you wish to proceed with vaccination. Related to Routine medical exam continue fluoxetineS tatus: Able to self-manage condition. Goals: Your goal is to manage stress. Barriers: No barriers to goal achievement have been identified. Related to Major depressive disorder in partial remission, unspecified whether recurrent Continue regular fol low up with your lithographic proofer, Dr. Olguin albuterol inhaler as neededTry to increase regular walking Related to Mild intermittent asthma, unspecified whether complicated continue current med ication Cont. to work on increasing regular walking and cont. to limit salt intake. Monitor home BP's and call if BP consistently running above 140/90. Related to Benign essential hypertension Cont. medication as prescribed.Cont. to work on low fat diet and increase regular exercise with goal of walking at least 30 min. 3 to 5 times per week. Related to Hyperlipidemia, unspecified hyperlipidemia type We will continue mon itorMonitor for any symptoms such as voice changes, difficulty swallowing Related to Multinodular goiter Dietary management e ducation, guidance, and counseling Related to Body mass index (BMI) 34.0-34.9, adult start pantoprazole [address] Henning for EGD Related to Dysphagia, unspecified type start pantoprazole [address] Henning for EGD Related to History of esophageal stricture start pantoprazole [address] Henning for EGD Related to Gastroesophageal reflux disease, unspecified whether esophagitis present Continue regular fol low up with your lithographic proofer, Dr. Olguin albuterol inhaler as neededTry to increase regular walking Related to Mild intermittent asthma, unspecified whether complicated Cont. medication as prescribed.Cont. to work on low fat diet and increase regular exercise with goal of walking at least 30 min. 3 to 5 times per week. Related to Hyperlipidemia, unspecified hyperlipidemia type continue current med ication Cont. to work on increasing regular walking and cont. to limit salt intake. Monitor home BP's and call if BP consistently running above 140/90. Related to Benign essential hypertension continue fluoxetineS tatus: Able to self-manage condition. Goals: Your goal is to manage stress. Barriers: No barriers to goal achievement have been identified. Related to Major depressive disorder in partial remission, unspecified whether recurrent ultrasound of thryoi d ordered for close monitoring Related to Multinodular goiter Dietary management e ducation, guidance, and counseling Related to Body mass index (BMI) 34.0-34.9, adult Exercise Continue regular fol low up with your lithographic proofer, Dr. Olguin albuterol inhaler as neededTry to increase regular walking Related to Mild intermittent asthma, unspecified whether complicated Screening mammogram and DEXA hip and spine orderedFlu vaccine and Pneumovax 23 given todayFollow up in 6 months- BMP, A1c prior Related to Routine medical exam Cont. medication as prescribed.Cont. to work on low fat diet and increase regular exercise with goal of walking at least 30 min. 3 to 5 times per week. Related to Hyperlipidemia, unspecified hyperlipidemia type continue current med ication Cont. to work on increasing regular walking and cont. to limit salt intake. Monitor home BP's and call if BP consistently running above 140/90. Related to Benign essential hypertension continue current med srefill sent for fluoxetineStatus: Able to self-manage condition. Goals: Your goal is to manage stress. Barriers: No barriers to goal achievement have been identified. Related to Major depressive disorder in partial remission, unspecified whether recurrent Immunizations Urinary Incontinence Dietary management e ducation, guidance, and counseling Related to Body mass index (BMI) 35.0-35.9, adult Fall Risk Prevention Follow-up with GI. W e will call you regarding appointment.Call our office if symptoms worsen prior to appointment with GI doctor Related to Vomiting without nausea, intractability of vomiting not specified, unspecified vomiting type continue current med ication Cont. to work on increasing regular walking and cont. to limit salt intake. Monitor home BP's and call if BP consistently running above 140/90. Related to Benign essential hypertension Cont. medication as prescribed.Cont. to work on low fat diet and increase regular exercise with goal of walking at least 30 min. 3 to 5 times per week. Related to Hyperlipidemia, unspecified hyperlipidemia type Try to start taking your metformin twice daily at the end of meals and try to avoid eating late at night or laying down shortly after eating.Please call if nausea does not improve or worsens. Related to Nausea keep follow up with lithographic proofer, Dr. Plata, as scheduled tomorrow to review results of PFT's Related to Shortness of breath continue current med srefill sent for fluoxetineStatus: Able to self-manage condition. Goals: Your goal is to manage stress. Barriers: No barriers to goal achievement have been identified. Related to Major depressive disorder in partial remission, unspecified whether recurrent Will call lab and se e if they can add TSH with reflex free T4 to labs drawn yest due to multinodular goiterCall if you notice any increased pain or swelling over the front of your neck Related to Multinodular goiter Dietary management e ducation, guidance, and counseling Related to Body mass index (BMI) 34.0-34.9, adult Cont. medication as prescribed.Cont. to work on low fat diet and increase regular exercise with goal of walking at least 30 min. 3 to 5 times per week. Related to Hyperlipidemia, unspecified hyperlipidemia type continue current med ication Cont. to work on increasing regular walking and cont. to limit salt intake. Monitor home BP's and call if BP consistently running above 140/90. Related to Benign essential hypertension continue current med sStatus: Able to self-manage condition. Goals: Your goal is to manage stress. Barriers: No barriers to goal achievement have been identified. 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
--- OUTSIDE RECORDS SUMMARY | 2024-06-26 00:48 | XMS_ITS | Clinical Summary ---
Author Organization [facility] Address [address] [place] [address] Care Team Providers Care Color Maker Dyer Name Role Phone Allie Arizmendi MD Primary Care Provider + Heath Padron MD Unavailable Allergies No known active allergies Medications atorvastatin [...] mg total) by mouth daily Active vitamins A,C,P-gstl-woakrd 7,160-113-100 nvyh-up-fhvg tablet,delayed release (DR/EC) Take by mouth. Active [...] (11/23/2021): Added automatically from request for surgery [id number] Atherosclerosis of aorta 09/07/2021 Kidney stone 04/20/2021 Prediabetes 03/10/2021 Dysphagia 07/31/2020 Gastroesophageal reflux disease 07/31/2020 Mild intermittent asthma 01/31/2020 Palpitations 05/08/2019 Benign essential hypertension 03/29/2019 Hyperlipidemia 03/29/2019 Major depression in partial remission 03/29/2019 Encounters Date Type Department Care Team Description 04/16/2024 11:15 AM DOG BREEDER Office Visit [facility] Cardiology at [address] [place] [address] Walker Verma MD Palpitations (Primary [...] on file Legal Sex Female 6:58 PM DOG BREEDER Gender Identity Not on file Sexual Orientation Not on file Obstetrics History Last Filed Vital Signs Vital Sign Reading Time Taken Comments Blood Pressure 102/68 04/16/2024 11:14 AM DOG BREEDER Pulse 78 04/16/2024 11:14 AM DOG BREEDER Temperature 36.3 C (97.4 F) 02/03/2023 7:45 AM CDT Respiratory Rate 20 02/03/2023 8:05 AM CDT Oxygen Saturation 95% 04/16/2024 11:14 AM DOG BREEDER Inhaled Oxygen Concentration - - Weight 76.7 kg (169 lb) 04/16/2024 11:14 AM DOG BREEDER Height 149.9 cm (4' 11 ) 04/16/2024 11:14 AM DOG BREEDER Body Mass Index 34.13 04/16/2024 11:14 AM DOG BREEDER Plan of Treatment Health Maintenance Due Date [...] Tdap) 04/16/203201/2022 Pneumococcal vaccine 65+ Completed 03/29/2023, 0312/2017 Medical Devices Implanted Type Area Metalworker Device Identifier Shelf Expiration Date Model / Serial / Lot Screw Screw Right: Toes Bottom Teeth Tooth Screw In Left Second Toe Left: Second Toe Procedures Procedure Name Priority Date/Time Associated Diagnosis Comments ELECTROCARDIOGRAM REPORT Routine 024 2:45 PM DOG BREEDER Palpitations from Last 3 Months Results * Electrocardiogram Report (04/16/2024 2:45 PM DOG BREEDER) Walker Verma MD ECG ORDERABLES Final Re sult from Last 3 Months Insurance MEDICARE [employer] [place] [employer] [place] [address] MEDICARE [facility] Member Subscriber Plan / Payer (Ef fective 2015-Present) Name:Diana, Beena K Relation to Subscriber:Spouse Name:VANESA WEIR Date of :1944 (Home) Address: [address] [place] [address] [place] [address] Payer ID:[id number] (NAIC) Group ID:[id number] Type: [employer] Address: [address] [place] [id number] Care Teams Color Maker Dyer Relationship Specialty Start Date End Date Allie Arizmendi MD [address] [place] [address] PCP - General Internal Medicine 05/08/19 Heath Padron MD [address] [facility] [facility] [address] [place] [address] Referring Physician Orthopedic Surgery 06/01/23
--- NOTE | 2024-06-26 07:22 | WPDHPUPDATE1 ---
History and Physical Update Update Date/Time: 06/26/24 07:22 History and Physical has been reviewed, including an updated exam of the patient. There are NO changes in the patient's condition. Risks, benefits, and alternatives have been discussed and questions answered. Patient agrees to proceed with procedure.
[2024-06-26] MEDS: LACTATED RINGERS 1,000 ML 30 ML IV CONT ×3 (08:50→15:04)
[2024-06-26] MEDS: ACETAMINOPHEN 500 MG TABLET 1000 MG PO (08:53)
--- NOTE | 2024-06-26 09:59 | P.PNAN_ITS ---
Anes - Initial Pre Proc Eval Procedure: Operation Date: 06/26/24 10:30 Proposed Procedures p Right Total Knee Arthroplasty - Heath Padron MD Date/Time: 06/26/24 09:59 Surgeon: Heath Padron MD Pre Op Diagnosis: right knee djd Patient Data Age: 78 Gender: F Height: 1.52 m Weight: 76.3 kg Last Vital Signs Temp 36.8 C 06/26/24 08:19 Pulse 79 06/26/24 08:19 Resp 18 06/26/24 08:19 BP 119/71 06/26/24 08:19 Pulse Ox 98 06/26/24 08:19 O2 Del Method Room Air 06/26/24 08:19 Allergies Allergy/AdvReac Type Severity Reaction Status Date / Time nickel AdvReac Unknown itching, Verified 06/26/24 08:32 rash Home Medications ?Medication ?Instructions ?Recorded ?Confirmed ?Type atorvastatin 20 mg tablet 20 mg PO DAILY 04/30/19 06/26/24 History carboxymethylcellulose sodium 0.5 1 drop ophthalmic (eye) BID PRN 04/30/19 06/26/24 History % eye drops (Refresh Tears) Dry Eye(S) fluoxetine 20 mg capsule 20 mg PO DAILY 04/30/19 06/26/24 History lisinopril 5 mg tablet 5 mg PO HS 04/30/19 06/26/24 History pantoprazole 40 mg tablet,delayed 40 mg PO DAILY 08/11/20 06/26/24 History release vit C 250 mg-vit E 200 unit-zinc 1 cap PO BID 08/11/20 06/26/24 History ox 12.5 eh-hzzlmq-gzattj-zeax capsule (ICaps AREDS2) buspirone 5 mg tablet 5 mg PO BID 01/03/23 06/26/24 History cyclosporine 0.05 % eye drops in a 1 drp EACH EYE Q12H 01/03/23 06/26/24 History dropperette ondansetron 4 mg disintegrating 4 mg PO Q6H PRN Nausea 01/03/23 06/12/24 History tablet potassium chloride 20 mEq 20 meq PO PRN PRN WHEN TAKES LASIX 01/03/23 06/12/24 History tablet,extended release Ventolin HFA 90 mcg/actuation See Rx Instructions .Route 03/30/23 06/12/24 Rx aerosol inhaler (albuterol sulfate) .COMPLEX #18 grams acetaminophen 500 mg capsule 1,000 mg PO Q6H PRN Pain 06/23/23 06/12/24 History cetirizine 10 mg tablet (Zyrtec) 10 mg PO DAILY 06/23/23 06/26/24 History vitamin B complex 1 cap PO DAILY 06/23/23 06/26/24 History ropinirole 0.25 mg tablet 0.5 mg PO HS 09/12/23 06/12/24 History Trelegy Ellipta 100 mcg-62.5 See Rx Instructions .Route 03/05/24 06/26/24 Rx mcg-25 mcg powder for inhalation .COMPLEX #60 ea (xhejqiuykif-wtikcttob-fraqfkkg) cholecalciferol (vitamin D3) 50 50 mcg PO DAILY 06/12/24 06/26/24 History mcg (2,000 unit) capsule magnesium gluconate 12.5 mg 250 mg PO DAILY 06/12/24 06/26/24 History magnesium (250 mg) tablet multivitamin (Daily Multi-Vitamin 1 tablet PO DAILY 06/12/24 06/26/24 History tablet) furosemide 40 mg tablet (Lasix) 40 mg PO DAILY PRN edema 06/14/24 06/14/24 Histo ry chlorhexidine gluconate 4 % 1 applic topical ONCE #237 mL 06/19/24 Rx topical liquid (Hibiclens) montelukast 10 mg tablet See Rx Instructions .Route 06/20/24 06/26/24 Rx .COMPLEX #30 tabs Laboratory Tests 06/26/24 08:51 Blood Type O Positive Antibody Screen Negative Patient hx anesthesia problems: post op nausea/vomiting Family hx anesthesia problems: none Results Review: All pre-operative results and documents have been reviewed as part of the pre- operative evaluation. [facility] Past Medical History Medical History Asthma Rotator cuff tear Trochanteric bursitis, right hip DJD of AC (acromioclavicular) joint Rotator cuff tendonitis Right shoulder pain Degenerative joint disease of knee High cholesterol HTN (hypertension) Diabetes Surgical History Surgical History Status post total left knee replacement DOS 07/05/2023 S/P total knee arthroplasty History of laparoscopic appendectomy H/O: hysterectomy H/O hernia repair Family History Family History (Reviewed 06/21/24 @ 08:04 by Merly Mott [facility]) Mother Family history of coronary artery disease Family history of lung disease Sibling Family history of cardiovascular disease Family history of chronic obstructive pulmonary disease Family history of congestive heart failure Alcoholism Hypertension Depression Heart disease Father Family history of chronic obstructive pulmonary disease Social History Social History (Reviewed 06/21/24 @ 08:04 by Merly Mott [facility]) Smoking packs per day: 1 Smoking cigarettes per day: 20.0 Years smoked: 15 Smoking pack-years: 15.00 Smoking status: Former smoker Tobacco type: cigarettes Second hand tobacco smoke exposure: No Smoking end date: 11/06/84 Additional smoking assessment comments: DENIES ANY FORM OF TOBACCO USE Alcohol intake: current Drinks per week: 7 Alcohol use details: WINE Substance use: never Substance use type: does not use Do You Feel Safe in your Home?: Yes Lack of Transportation: No Lack of Food: Never True Current Housing: I Have Housing Concerned About Future Housing: No Difficulty Paying Gas/Electric Bills: No Difficulty Paying for Meds: No Currently Unemployed: No Education: Associate Degree Difficulty w/ Childcare or Family Care: No Living arrangements: with family Additional living arrangements comments: [facility] Spiritual care concerns: No Anes - Eval Final PreProcedure Day of Procedure 06/26/24 09:59 Patient weight: obese Heart: regular rate and rhythm Lungs: clear to auscultation Airway: Mallampati scale class II Neurological: alert and oriented Last oral intake: >/= 8 hours ASA classification: III Emergent: no Anesthetic plan: proceed Anesthesia type and monitoring: general LMA and standard monitoring Results Review: All pre-operative results and documents have been reviewed as part of the pre- operative evaluation. Informed Consent: The patient's anesthetic plan and its attendant risks and benefits were discussed with the patient/family/POA. Questions were solicited and answers provided to the satisfaction of the patient/family/POA.
--- NOTE | 2024-06-26 10:23 | WPDANESPNB ---
Anes - Peripheral Nerve Block Date/Time: 06/26/24 10:23 I have discussed with the patient/family/POA the placement of a peripheral nerve block for post-operative pain management, including associated risks, benefits, complications, and side effects. Alternative methods of post-operative analgesia were detailed. Questions were solicited and answers provided to the satisfaction of the patient/family/POA. Time-Out: A pre-procedural Time-Out was completed immediately before starting the procedure and confirmed: Patient Identification, Site, Procedure, Patient Position and the Availability of Requisite Equipment. Clinical Indications: Acute post-operative pain management requested by the operative surgeon. Nerve Block Insertion Note Anes-nerve block: adductor canal right Patient position: supine Skin prep: chlorhexidine Needle: 22 gauge, stimulating, insulated echogenic needle. Needle length: 80 mm Technique: ultrasound Injectate: bupivacaine 0.5% with epi 5 mcg/ml (30cc - no epi) Observations: tolerated well Complications: none Procedure start time:: 1016 Procedure end time:: 1019
[2024-06-26] MEDS: ceFAZolin 2 GM/D5W 50 ML 2 GM/50 ML BAG IVPB ×2 (10:27→18:19)
[2024-06-26] MEDS: SODIUM CHLORIDE 0.9% IV 37.7 ML, MORPHINE SULFATE INJ (*CRX) 2 MG, ROPivacaine HCL 1% 2... INFILTRATE (11:13)
[2024-06-26] MEDS: TRANEXAMIC ACID 1,000 MG/10 ML AMPUL 1000 MG IV PUSH (12:35)
[2024-06-26] MEDS: fentaNYL CITRATE INJ (*CRX) 100 MCG/2 ML VIAL 25 MCG IV PUSH ×2 (14:43→14:47)
--- NOTE | 2024-06-26 16:24 | W.PM.PROC2 ---
Procedure Note - Detailed Date of Procedure 06/26/24 Pre-op Diagnosis right knee djd Post-op Diagnosis Same Procedure Performed R TKA Surgeon Heath Padron MD Anesthesia General Description of Procedure THE RIGHT KNEE WAS PREPPED AND DRAPED IN THE STERILE FASHION. A MIDLINE SKIN INCISION WAS MADE. A MEDIAL PARAPATELLAR ARTHROTOMY WAS MADE. THE PATELLA WAS EVERTED. THERE WAS TRICOMPARTMENT DJD. AN INTRAMEDULLARY NARDA WAS PLACED IN THE FEMUR. A DISTAL FEMORAL CUT WAS MADE IN 5 DEGREES OF VALGUS REMOVING APPROXIMATELY 9 MM OF BONE FROM THE DISTAL FEMUR. THE FEMUR WAS SIZED TO 65. A 65 FEMORAL CUTTING BLOCK WAS PLACED IN 3 DEGREES OF EXTERNAL ROTATION AND IN ALIGNMENT WITH RAY'S LINE AND THE TRANSEPICONDYLAR AXIS. ANTERIOR POSTERIOR AND CHAMFER CUTS WERE MADE. THE CUTS WERE EXCELLENT. NEXT AN INTRAMEDULLARY CUTTING GUIDE WAS PLACED IN THE TIBIA. A TRANS TIBIAL CUT WAS MADE ALONG THE LONG AXIS OF THE TIBIA. APPROXIMATELY 10 MM OF BONE WAS REMOVED FROM THE HIGH SIDE OF THE TIBIA. THE TIBIA WAS THEN PLANED TO A SMOOTH SURFACE. POSTERIOR FEMORAL OSTEOPHYTES WERE REMOVED FROM THE FEMORAL CONDYLES. A 67 TIBIAL TRIAL WAS PLACED IN ALIGNMENT WITH THE 1/3 MEDIAL ASPECT OF THE TIBIAL TUBERCLE. THEN A 65 FEMORAL PS CUTTING BLOCK WAS PLACED FOR THE BOX CUT. A PS TRIAL COMPONENT WAS PLACED. BOTH HAD EXCELLENT FITS. EVENTUALLY A 14 PS PLUS POLY TRIAL WAS PLACED. THE PATELLA WAS THEN RESECTED TO RECEIVE A 28 MM TRIAL COMPONENT. THE KNEE WAS TAKEN THROUGH A RANGE OF MOTION. THE KNEE CAME OUT TO FULL EXTENSION. THERE WAS NO ABNORMAL TILT TO THE PATELLA. THERE WAS GOOD A/P AND VARUS/VALGUS STABILITY. THERE WAS NO EXCESSIVE ROLL BACK WITH FLEXION. THE TRIAL COMPONENTS WERE REMOVED. THEN A 65 FEMORAL COMPONENT AND 67 TIBIAL COMPONENT WITH A 14 PS POLYETHYLENE COMPONENT THEN A 28 MM PATELLA COMPONENT WERE CEMENTED INTO PLACE. ONCE THE CEMENT WAS HARD THE KNEE WAS TAKEN THROUGH A ROM AGAIN AND FOUND TO BE STABLE WITH NO PATELLA TILT NO EXCESSIVE ROLL BACK WITH FLEXION AND GOOD STABILITY WITH COMPLETE AND FULL EXTENSION. THE KNEE WAS IRRIGATED WITH STERILE BETADINE AND WATER FOR ABOUT 3 MINUTES. THE BLEEDERS WERE CAUTERIZED. THE ARTHROTOMY WAS REPAIRED WITH NUMBER 1 VICRYL. THE SUB CUTANEOUS LAYER WITH 2-0 VICRYL AND THE SKIN WITH MAL. THE WOUND WAS WASHED AND A STERILE DRESSING WAS APPLIED. PATIENT WAS EXTUBATED. Estimated Blood Loss -150.0 Pathology None sent Complications No immediate complications Condition Stable Disposition PACU
--- NOTE | 2024-06-26 16:45 | ADMGEN ---
This patient, Beena Ortiz, was admitted to Medical Room 243-01. Patient/family oriented to hospital policies and general routines including ID bracelet, bed and alarms, visiting hours, pain management, procedures, bathroom and other care routines, personal items, smoking policy, room service/diet, and visiting hours. Information on how to activate the Rapid Response Team has been discussed. Patient/Family are encouraged to report perceived risks to care and to ask questions if they do not understand what they are told or what they should do.
[2024-06-26] MEDS: diazePAM (*CRX) 5 MG TABLET PO (17:31)
[2024-06-26] MEDS: oxyCODONE/ACETAMINOPHEN (*CRX) 5-325 MG TABLET 1 TABLET PO ×2 (17:31→22:04)
[2024-06-26] MEDS: CELECOXIB 200 MG CAPSULE PO (18:19)
[2024-06-26] MEDS: cycloSPORINE 0.4 ML OPHTH SOLUTION 1 DROP EACH EYE (22:02)
[2024-06-26] MEDS: lisinopriL 5 MG TABLET PO (22:03)
[2024-06-26] MEDS: rOPINIRole HCL 0.5 MG TABLET PO (22:03)
[2024-06-26] MEDS: FAMOTIDINE 20 MG TABLET PO (22:04)
[2024-06-26] MEDS: MONTELUKAST SODIUM 10 MG TABLET BY MOUTH (22:04)
[2024-06-26] MEDS: busPIRone HCL 5 MG TABLET PO (22:04)
[2024-06-27 02:09] VITALS: BP 115/56; PULSE 87; RESP 16; TEMP 37.2; O2SAT 92
[2024-06-27] MEDS: ceFAZolin 2 GM/D5W 50 ML 2 GM/50 ML BAG IVPB ×2 (02:19→09:48)
[2024-06-27] MEDS: oxyCODONE/ACETAMINOPHEN (*CRX) 10-325 MG TABLET 1 TAB PO ×2 (02:20→12:39)
[2024-06-27 05:27] VITALS: BP 103/51; PULSE 89; RESP 20; TEMP 36.6; O2SAT 91
[2024-06-27] MEDS: diphenhydrAMINE HCl INJ 50 MG/ML VIAL 25 MG IV PUSH (05:30)
[2024-06-27] MEDS: IBUPROFEN IV 800 MG/200 ML 800 MG/200 ML BAG 400 MG IVPB (05:35)
[2024-06-27 06:36] LABS: Basophils Percent Auto 0.3 % (0.2-1.2); Hematocrit 32.4 % (37.0-47.0); Immature Granulocyte Absolute 0.08 K/mm3 (0.00-0.031); Immature Granulocyte Percent A 0.6 % (0-0.5); Lymphocytes Percent Auto 8.5 % (18.3-44.2); Mean Corpuscular HGB Conc 30.9 g/dl (32-36); Mean Corpuscular Hemoglobin 28.6 pg (26-34); Mean Corpuscular Volume 92.6 fl (80-100); Mean Platelet Volume 11.2 fl (7.4-10.4); Monocytes Absolute Auto 1.2 K/mm3 (0.1-0.6); Monocytes Percent Auto 9.6 % (2.6-8.5); Neutrophils Absolute Auto 10.4 K/mm3 (1.3-6.7); Platelet Count Result 214 k/mm3 (150-375); Red Cell Distribution Width 13.4 % (11.5-14.5); White Blood Count 12.9 K/mm3 (4.5-10.0)
[2024-06-27 06:46] LABS: Anion Gap 3 mmol/L (4-12); Blood Urea Nitrogen 17 mg/dL (7-17); Calcium 8.4 mg/dL (8.4-10.2); Carbon Dioxide 31 mmol/L (22-30); Chloride 102 mmol/L (98-107); Estimated Glomerular Filt Rate > 60; Glucose 103 mg/dL (65-110); Potassium 4.7 mmol/L (3.4-5.0); Sodium 136 mmol/L (137-145)
[2024-06-27 08:00] VITALS: BP 100/47; PULSE 81; RESP 19; TEMP 36.6; O2SAT 95
[2024-06-27] MEDS: FLUTICASONE/UMECLIDIN/VILANTER 100-62.5-25 MCG ELLIPTA 1 PUFF INHALATION (08:22)
[2024-06-27 08:24] VITALS: O2SAT 95
[2024-06-27] MEDS: busPIRone HCL 5 MG TABLET PO (09:44)
[2024-06-27] MEDS: PANTOPRAZOLE 40 MG TABLET PO (09:44)
[2024-06-27] MEDS: ATORVASTATIN 20 MG TABLET PO (09:44)
[2024-06-27] MEDS: SENNA/DOCUSATE SODIUM TABLET 2 TAB PO ×2 (09:44→17:31)
[2024-06-27] MEDS: ASPIRIN 325 MG ENTERIC TABLET 650 MG PO (09:44)
[2024-06-27] MEDS: MAGNESIUM 13.5 MG TABLET (250 MG MAG GLUCONATE) PO (09:44)
[2024-06-27] MEDS: cycloSPORINE 0.4 ML OPHTH SOLUTION 1 DROP EACH EYE (09:44)
[2024-06-27] MEDS: FLUoxetine HCL 20 MG CAPSULE PO (09:44)
[2024-06-27] MEDS: FAMOTIDINE 20 MG TABLET PO (09:44)
[2024-06-27 09:45] VITALS: O2SAT 97
[2024-06-27] MEDS: CELECOXIB 200 MG CAPSULE PO ×2 (10:02→17:31)
[2024-06-27 12:00] VITALS: BP 104/53; PULSE 92; RESP 19; TEMP 36.6; O2SAT 97
--- NOTE | 2024-06-27 14:11 | P.PNAN_ITS ---
Anes - Prog Note Post-Op Date/Time: 06/27/24 14:11 Cardiovascular status: normal Respiratory status: normal Airway patency: baseline Mental status: baseline Post-Op hydration status: normal Vital Signs: Last Vital Signs Temp 97.9 F 06/27/24 12:00 Pulse 92 06/27/24 12:00 Resp 19 06/27/24 12:00 BP 104/53 L 06/27/24 12:00 Pulse Ox 97 06/27/24 12:00 O2 Del Method Room Air 06/27/24 09:45 O2 Flow Rate 2 06/26/24 16:15 Pain Score (VAS): 0 I/O: Intake & Output 06/26/24 06/27/24 06/27/24 23:59 07:59 15:59 Intake Total 1160 550 887 Output Total 400 400 210 Balance 760 150 677 Laboratory Tests 06/27/24 05:54 06/27/24 05:54 06/27/24 05:54 WBC 12.9 H RBC 3.50 L Hgb 10.0 L Hct 32.4 L MCV 92.6 MCH 28.6 MCHC 30.9 L RDW 13.4 Plt Count 214 MPV 11.2 H Immature Gran % (Auto) 0.6 H Neut % (Auto) 81.0 H Lymph % (Auto) 8.5 L [place] % (Auto) 9.6 H Eos % (Auto) 0.0 Baso % (Auto) 0.3 Lymph # (Auto) 1.10 [place] # (Auto) 1.2 H Eos # (Auto) 0.0 Baso # (Auto) 0.0 Abs Immat Gran (auto) 0.08 H Absolute Neuts (auto) 10.4 H Absolute Nucleated RBC 0.000 Nucleated RBC % 0.0 Sodium 136 L Potassium 4.7 Chloride 102 Carbon Dioxide 31 H Anion Gap 3 L BUN 17 Creatinine 0.76 Estim Creat Clear Calc Not Reportable Estimated GFR > 60 Glucose 103 Calcium 8.4 Post-procedural complaints: none Patient Feedback: Patient satisfied with anesthetic care.
--- NOTE | 2024-06-27 17:24 | PM.PNORT ---
Progress Note: A&P Assessment and Plan (1) Degenerative joint disease of knee: Qualifiers: Osteoarthritis type: primary Laterality: bilateral Qualified Code(s): M17.0 - Bilateral primary osteoarthritis of knee Code(s): M17.9 - Osteoarthritis of knee, unspecified Status: Acute (2) S/P total knee arthroplasty: Qualifiers: Laterality: left Qualified Code(s): Z96.652 - Presence of left artificial knee joint Code(s): Z96.659 - Presence of unspecified artificial knee joint Status: Acute Assessment and Plan: POD 1 DOING WELL. OK TO DC HOME WITH HOME HEALTH. F/U IN 3 WEEKS. Subjective Subjective Date/Time Seen: 06/27/24 17:24 Interval history: POD 1 DOING WELL, GOOD PROGRESS WITH PT, NO CALF PAIN Exam Extrem: Other: VSS AFEBRILE DRESSING DRY NV INTACT NEG HOMANS SIGN,CALF SOFT NON TENDER Objective Data Vital Signs Vital Signs: Vital Signs - 24 hr 06/26/24 17:30 06/26/24 18:30 06/26/24 22:09 Temperature 37.1 C 36.5 C 36.5 C Pulse Rate 88 87 84 Respiratory Rate 16 18 20 Blood Pressure 153/79 H 149/69 H 112/58 L Pulse Oximetry 99 99 92 Oxygen Delivery 06/27/24 02:09 06/27/24 05:27 06/27/24 07:55 Temperature 37.2 C 36.6 C Pulse Rate 87 89 Respiratory Rate 16 20 Blood Pressure 115/56 L 103/51 L Pulse Oximetry 92 91 Oxygen Delivery Room Air 06/27/24 08:00 06/27/24 08:24 06/27/24 09:45 Temperature 36.6 C Pulse Rate 81 Respiratory Rate 19 Blood Pressure 100/47 L Pulse Oximetry 95 95 97 Oxygen Delivery Room Air Room Air 06/27/24 12:00 Temperature 36.6 C Pulse Rate 92 Respiratory Rate 19 Blood Pressure 104/53 L Pulse Oximetry 97 Oxygen Delivery Intake/Output Intake/Output: Intake & Output 06/24/24 06/25/24 06/26/24 06/27/24 23:59 23:59 23:59 23:59 Intake Total 1310 1917 Output Total 400 610 Balance 910 1307 Meds/Results Medications: Active Medications Generic Name Dose Route Start Last Admin Trade Name Freq PRN Reason Stop Dose Admin Acetaminophen 1,000 mg 06/26/24 16:24 Acetaminophen 500 Mg Tablet PO Q6H PRN Pain Acetaminophen 500 mg 06/26/24 16:24 Acetaminophen 500 Mg Tablet PO Q6H PRN Pain Rated 1-3 Albuterol 0 puff 06/26/24 16:24 Albuterol Sulfate (*Sp) Aerosol 1 Puff INHALATION Q4H PRN SOB/WHEEZING Artificial Tears 1 drop 06/26/24 17:17 Artificial Tears Ophth Soln 15 Ml Bottle EACH EYE BID PRN Dry Eye(S) Aspirin 650 mg 06/27/24 09:00 06/27/24 09:44 Aspirin 325 Mg Enteric Tablet PO 650 mg DAILY STEPHEN Administration Atorvastatin Calcium 20 mg 06/27/24 09:00 06/27/24 09:44 Atorvastatin 20 Mg Tablet PO 20 mg DAILY STEPHEN Administration Buspirone HCl 5 mg 06/26/24 21:00 06/27/24 09:44 Buspirone Hcl 5 Mg Tablet PO 5 mg Q12HR STEPHEN Administration Celecoxib 200 mg 06/26/24 17:00 06/27/24 10:02 Celecoxib 200 Mg Capsule PO 200 mg BIDWM STEPHEN Administration Cyclosporine 1 drop 06/26/24 21:00 06/27/24 09:44 Cyclosporine 0.4 Ml Ophth Solution EACH EYE 1 drop Q12HR STEPHEN Administration Diazepam 5 mg 06/26/24 16:24 06/26/24 17:31 Diazepam (*Crx) 5 Mg Tablet PO 5 mg Q8H PRN Administration Spasms Diphenhydramine HCl 25 mg 06/26/24 16:24 06/27/24 05:30 Diphenhydramine Hcl Inj 50 Mg/Ml Vial IV PUSH 25 mg Q6H PRN Administration Itching Famotidine 20 mg 06/26/24 21:00 06/27/24 09:44 Famotidine 20 Mg Tablet PO 20 mg Q12HR STEPHEN Administration Fluoxetine HCl 20 mg 06/27/24 09:00 06/27/24 09:44 Fluoxetine Hcl 20 Mg Capsule PO 20 mg DAILY STEPHEN Administration Fluticasone/Umeclidinium/Vilanterol 1 puff 06/27/24 08:00 06/27/24 08:22 Fluticasone/Umeclidin/Vilanter 100-62.5-25 Mcg Ellipta INHALATION 1 puff DAILYRT STEPHEN Administration Furosemide 40 mg 06/26/24 16:24 Furosemide 40 Mg Tablet PO DAILY PRN edema Hydromorphone HCl 1 mg 06/26/24 16:24 Hydromorphone Hcl Inj (*Crx) 1 Mg/Ml Syr IV PUSH Q2H PRN Breakthrough Pain Rated 7-10 or NPO Hydromorphone HCl 0.5 mg 06/26/24 16:24 Hydromorphone Hcl Inj (*Crx) 1 Mg/Ml Syr IV PUSH Q2H PRN Breakthrough Pain Rated 4-6 or NPO Ibuprofen 800 mg in 200 mls @ 400 mls/hr 06/26/24 16:24 06/27/24 06:05 Caldolor 800 Mg/200 Ml IVPB Infused Q6H PRN Infusion Breakthrough Pain Rated 1-3 or NPO Lisinopril 5 mg 06/26/24 21:00 06/26/24 22:03 Lisinopril 5 Mg Tablet PO 5 mg HS STEPHEN Administration Magnesium Gluconate 13.5 mg 06/27/24 09:00 06/27/24 09:44 Magnesium 13.5 Mg Tablet (250 Mg Mag Gluconate) PO 13.5 mg DAILY STEPHEN Administration Montelukast Sodium 10 mg 06/26/24 21:00 06/26/24 22:04 Montelukast Sodium 10 Mg Tablet BY MOUTH 10 mg HS STEPHEN Administration Naloxone HCl 0.1 mg 06/26/24 16:24 Naloxone Hcl 0.4 Mg/Ml Vial IV PUSH Q2M PRN Opiate Reversal Ondansetron HCl 4 mg 06/26/24 16:24 Ondansetron Hcl Odt 4 Mg Tablet PO Q6H PRN Nausea Ondansetron HCl 4 mg 06/26/24 16:24 Ondansetron Inj 4 Mg/2 Ml Vial IV PUSH Q4H PRN Nausea And Vomiting Oxycodone/Acetaminophen 1 tablet 06/26/24 16:24 06/26/24 22:04 Oxycodone/Acetaminophen (*Crx) 5-325 Mg Tablet PO 1 tablet Q4H PRN Administration Pain Rated 4-6 Oxycodone/Acetaminophen 1 tab 06/26/24 16:24 06/27/24 12:39 Oxycodone/Acetaminophen (*Crx) 10-325 Mg Tablet PO 1 tab Q6H PRN Administration Pain Rated 7-10 Pantoprazole Sodium 40 mg 06/27/24 09:00 06/27/24 09:44 Pantoprazole 40 Mg Tablet PO 40 mg DAILY STEPHEN Administration Polyethylene Glycol 17 gm 06/27/24 09:00 06/27/24 09:52 Polyethylene Glycol 3350 17 Gm Powd.Pack PO Not Given QAM [facility] Potassium Chloride 20 meq 06/26/24 16:24 Potassium Chloride 20 Meq Er Tablet PO PRN PRN WHEN TAKES LASIX Ropinirole HCl 0.5 mg 06/26/24 21:00 06/26/24 22:03 Ropinirole Hcl 0.5 Mg Tablet PO 0.5 mg HS STEPHEN Administration Senna/Docusate Sodium 2 tab 06/26/24 17:00 06/27/24 09:44 Senna/Docusate Sodium Tablet PO 2 tab BID STEPHEN Administration Radiology Results: ITS Impressions Knee X-Ray 06/26/24 15:05 IMPRESSION: 1. Total right knee arthroplasty in near-anatomic alignment. Labs Labs: Laboratory Results - last 24 hr 06/27/24 05:54 WBC 12.9 H RBC 3.50 L Hgb 10.0 L Hct 32.4 L MCV 92.6 MCH 28.6 MCHC 30.9 L RDW 13.4 Plt Count 214 MPV 11.2 H Immature Gran % (Auto) 0.6 H Neut % (Auto) 81.0 H Lymph % (Auto) 8.5 L [place] % (Auto) 9.6 H Eos % (Auto) 0.0 Baso % (Auto) 0.3 Lymph # (Auto) 1.10 [place] # (Auto) 1.2 H Eos # (Auto) 0.0 Baso # (Auto) 0.0 Abs Immat Gran (auto) 0.08 H Absolute Neuts (auto) 10.4 H Absolute Nucleated RBC 0.000 Nucleated RBC % 0.0 Sodium 136 L Potassium 4.7 Chloride 102 Carbon Dioxide 31 H Anion Gap 3 L BUN 17 Creatinine 0.76 Estim Creat Clear Calc Not Reportable Estimated GFR > 60 Glucose 103 Calcium 8.4
== END 2024-06-27 18:05 | disposition home health service (06) ==
LOC: ANHSURGERY 10:58 → ANH2MED 16:44
PROVIDERS: PCP Internal Medicine; Visit Provider Orthopaedic Surgery
PROC: (CPT 27447; principal; 2024-06-26 10:30)
DX: M17.11 Unilateral primary osteoarthritis, right knee (principal); M25.761 Osteophyte, right knee; G89.18 Other acute postprocedural pain; I10 Essential (primary) hypertension; E11.9 Type 2 diabetes mellitus without complications; J45.909 Unspecified asthma, uncomplicated; E78.00 Pure hypercholesterolemia, unspecified; M19.019 Primary osteoarthritis, unspecified shoulder; E66.9 Obesity, unspecified; Z68.33 Body mass index [BMI] 33.0-33.9, adult; Z79.51 Long term (current) use of inhaled steroids; Z98.890 Other specified postprocedural states; Z87.891 Personal history of nicotine dependence; Z82.49 Family history of ischemic heart disease and other diseases of the circulatory system
CPT/HCPCS: 64447; 27447; 36415; 73560; 80048; 85025; 86850; 86900; 86901; 94640; 97110; 97116; 97161; 97165; 97535; A9270; C1713; J0171; J0690; J1100; J1171; J1200; J1741; J1885; J2003; J2270; J2371; J2405; J2704; J2795; J3010; J3370; J7120

== ENCOUNTER 2024-10-18 12:52 | Outpatient (CLI) | payer MEDICARE, BC, SELFPAY ==
--- NOTE | ~2024-10-18 | DEXA_ITS ---
Bone Density Report Name: ALEX WEIR Age: 79 Sex: Female Ethnicity: White Date of : 1945 Indication: osteopenia; parental hip fracture; height loss; hysterectomy; Referring Provider: CONRAD, ESTER Dominguez Study: Bone densitometry was performed. Exam Date: October 18, 2024 Accession number: [id number] Bone Density: Region BMD T-score Z-score Classification AP Spine(L1-L4) 0.984 -0.6 1.9 Normal Femoral Neck (Left) 0.695 -1.4 0.8 Osteopenia Total Hip (Left) 0.667 -2.3 -0.4 Osteopenia Femoral Neck (Right) 0.600 -2.2 -0.1 Osteopenia Total Hip (Right) 0.650 -2.4 -0.5 Osteopenia Total Hip Mean 0.658 -2.4 -0.5 Osteopenia World Health Organization criteria for BMD impression classify patients as: Normal (T-score at or above -1.0), Osteopenia (T-score between -1.0 and -2.5), or Osteoporosis (T-score at or below -2.5). Previous Exams: Region Exam Age BMD T-score BMD Change BMD Change Date g/cm2 vs Baseline vs Previous Total Hip(Left) 10/18/2024 79 0.667 -2.3 -0.220 (-24.8% -0.130 (-16.3% 02/29/2020 74 0.797 -1.2 -0.090 (-10.1% -0.005 (-0.6%) 01/21/2016 70 0.802 -1.1 -0.085 (-9.6%) -0.085 (-9.6%) 08/10/2012 66 0.887 -0.5 Total Hip(Right) 10/18/2024 79 0.650 -2.4 -0.252 (-28.0% -0.149 (-18.7% 02/29/2020 74 0.799 -1.2 -0.103 (-11.5% 0.015 (1.9%) 01/21/2016 70 0.784 -1.3 -0.118 (-13.1% -0.118 (-13.1% 08/10/2012 66 0.902 -0.3 *Denotes significance at 95% confidence level, LSC for Total Hip = 0.027 g/cm2 # Denotes dissimilar scan types or analysis methods Clinical Information Provided by Patient: Parent has had a hip fracture Has used the following medications: Vitamin D Has the following medical conditions: Hysterectomy Patient maximum height was 63 Menopause Age: 35 No regular weight bearing exercise Drinks caffeinated beverages Onset of menses at age 13 Number of children 0 Impression: The patient has low bone mass, based on the Right Total Hip T-score. The patient has risk factors, including: parental hip fracture. The BMD for the Total Hip(Left) decreased, changing by -16.3% since the last DXA exam. The BMD for the Total Hip(Right) decreased, changing by -18.7% since the last DXA exam. Discussion: BONE DENSITY IS LOW AT ONE OR MORE SKELETAL SITES. This patient's lowest T-score is low at one or more skeletal sites. It meets the World Health Organization's (WHO) criteria for ?low bone mass? (T-score between -1.0 and -2.5). The patient's 10-year risk of fracture as calculated by FRAX is less than the threshold where pharmacological therapy is recommended by the National Osteoporosis Foundation (NOF). However, all treatment decisions require clinical judgment and consideration of individual patient factors, including patient preferences, comorbidities, previous drug use, risk factors not captured in the FRAX model (e.g., frailty, falls, vitamin D deficiency, increased bone turnover, interval significant decline in bone density) and possible under or overestimation of fracture risk by FRAX. The patient should follow a healthful lifestyle (good nutrition with adequate calcium and vitamin D, and appropriate weight-bearing exercise). Follow-Up: Consider repeating this study in 2 years to reassess this patient's status, or sooner if there is some new clinical indication. Reported by: SHYANN on 10/18/2024 1:37:00 PM. Reviewed, dictated and finalized at location A.
--- OUTSIDE RECORDS SUMMARY | 2024-10-18 13:26 | XMS_ITS | Referral Summary ---
Author Organization [facility] Address [address] [place] [address] Care Team Providers Care Commutator Assembler Name Role Phone Allie Arizmendi MD Primary Care Provider + Heath Padron MD Unavailable [phone] Encounters Date Type Department Care Team Description 10/16/2024 12:30 PM CDT Office Visit [facility] Op[facility]mology 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 Active RESTASIS 0.05 % ophthalmic emulsion 04/24/[address] (PROTONIX) 40 mg EC tablet Take 1 tablet (40 mg total) by mouth daily Active furosemide (LASIX) 40 mg tablet Take 1 tablet (40 mg total) by mouth 2 (two) times a day Active potassium chloride ER (KLOR-CON) 10 mEq CR tablet Take 1 tablet/capsule (10 mEq total) by mouth 2 (two) [...] levocetirizine dihydrochloride (XYZAL ORAL) Take by mouth Act nae coenzyme Q10 200 mg capsule Take 1 capsule (200 mg total) by mouth daily Active multivitamin tabletIndications:V itamin Deficiency Prevention Take 1 tablet by mouth Active calcium-magnesium 300-300 mg tablet Take by mouth Active acetaminophen 500 mg capsule Take by mouth 07/11/19 24 Active carboxymethylcellul ose sodium (Refresh Contacts) drops Administer into affected eye(s) 07/11/19 24 Active grrdyefotxgk-X8-tqF 12-algal oil (Metanx, algal oil,) 3 mg-35 mg-2 mg -90.314 mg capsule Take by mouth 07/11/19 Active white petrolatum-mineral oiL ointment apply to both eyes at bedtime as needed 09/29/19 Active vit C-E-zinc np-jalt-ndn-zeax (ICaps AREDS2) 250 mg-200 unit -12.5 mg-1 mg capsule Take by mouth 07/11/19 24 Active Active Problems Problem Noted Date Diagnosed Date Preoperative evaluation to chintan grahame out surgical contraindication 06/01/2023 Trigger ring finger of right hand 01/25/2023 Trigger middle finger of right hand 12/22/2022 Coronavirus infection 02/23/2022 Hoarseness 12/11/2021 Multinodular goiter 12/11/2021 Right hand pain 11/23/2021 Ganglion cyst 11/23/2021 Subcutaneous mass of right thumb 11/23/2021 Overview (11/23/2021): Added automatically from request for surgery [id number] Atherosclerosis of aorta 09/07/2021 Kidney stone 04/20/2021 [...] on file Legal Sex Female 6:58 PM [employer] [place] Gender Identity Not on file Sexual Orientation Not on file Last Filed Vital Signs Vital Sign Reading Time Taken Comments Blood Pressure 102/68 04/16/2024 11:14 AM [employer] [place] Pulse 78 04/16/2024 11:14 AM [place] [place] Temperature 36.3 C (97.4 F) 02/03/2023 7:45 AM CDT Respiratory Rate 20 02/03/2023 8:05 AM CDT Oxygen Saturation 95% 04/16/2024 11:14 AM [employer] [place] Inhaled Oxygen Concentration - - Weight 76.7 kg (169 lb) 04/16/2024 11:14 AM [employer] [place] Height 149.9 cm (4' 11) 04/16/2024 11:14 AM [employer] [place] Body Mass Index 34.13 04/16/2024 11:14 AM [place] [place] Plan of Treatment Not on file Medical Devices Implanted Type Area Engraver Hand Hard Metals Device Identifier Shelf Expiration Date Model / Serial / Lot Screw Screw Right: Toes Bottom Teeth Tooth Screw In Left Second Toe Left: [place] [address] MEDICARE [facility] Address: [address] [address] [facility] [address] [place] [address] MEDICARE [facility] MEDICARE [facility] Address: [address] [place] [address] Care Teams Commutator Assembler Relationship Specialty Start Date End Date Allie Arizmendi MD PCP - General Internal Medicine 05/08/19 Heath Padron MD [address] [address] Referring Physician Orthopedic Surgery 06/01/23
--- OUTSIDE RECORDS SUMMARY | 2024-10-18 13:26 | XMS_ITS | Clinical Summary ---
Author Organization [facility] Address [facility] [place] [address] Care Team Providers Care Organisation And Methods Analyst Name Role Phone Allie Arizmendi MD Primary Care Provider + Heath Padron MD Unavailable [phone] Allergies No known active allergies Medications atorvastatin [...] mg total) by mouth daily Active vitamins A,C,C-emjd-owcwtr 7,160-113-100 feow-zj-dltg tablet,delayed release (DR/EC) Take by mouth. Active [...] Administer into affected eye(s) 07/11/19 24 Active mipiexcuxviu-H9-owO 12-algal oil (Metanx, algal oil,) 3 mg-35 mg-2 mg -90.314 mg capsule Take by mouth 07/11/19 24 Active white petrolatum-mineral oiL ointment apply to both eyes at bedtime as needed 09/29/19 24 Active vit C-E-zinc lt-mokk-tnx-zeax (ICaps AREDS2) 250 mg-200 unit -12.5 mg-1 mg capsule Take by mouth 07/11/19 24 Active Active Problems Problem Noted Date Diagnosed Date Preoperative evaluation to r ule out surgical contraindication 06/01/2023 Trigger ring finger of right hand 01/25/2023 Trigger middle finger of right hand 12/22/2022 Coronavirus infection 02/23/2022 Hoarseness 12/11/2021 Multinodular goiter 12/11/2021 Right hand pain 11/23/2021 Ganglion cyst 11/23/2021 Subcutaneous mass of right thumb 11/23/2021 Overview (11/23/2021): Added automatically from request for surgery [id number] Atherosclerosis of aorta 09/07/2021 Kidney stone 04/20/2021 Prediabetes 03/10/2021 Dysphagia 07/31/2020 Gastroesophageal reflux disease 07/31/2020 Mild intermittent asthma 01/31/2020 Palpitations 05/08/2019 Benign essential hypertension 03/29/2019 Hyperlipidemia 03/29/2019 Major depression in partial remission 03/29/2019 Encounters Date Type Department Care Team Description 10/16/2024 12:30 PM CDT Office Visit [facility] Op[facility] 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 (Primary Dx); Conjunctival chalasis, bilateral; Floppy eyelid syndrome of both eyes; Hx of ALK for hyperopia; Pseudophakia, both eyes 09/19/2024 Telephone [facility]mology [facility] [place] [address] Jacinto Bai MD newpts 09/18/2024 Telephone [facility]mology [address] [place] [address] Lalitha Arteaga MD PhD newptsch from Last 3 Months Surgical History Surgery [...] on file Legal Sex Female 6:58 PM [employer] Gender Identity Not on file Sexual Orientation Not on file Obstetrics History Last Filed Vital Signs Vital Sign Reading Time Taken Comments Blood Pressure 102/68 04/16/2024 11:14 AM [employer] Pulse 78 04/16/2024 11:14 AM [employer] Temperature 36.3 C (97.4 F) 02/03/2023 7:45 AM CDT Respiratory Rate 20 02/03/2023 8:05 AM CDT Oxygen Saturation 95% 04/16/2024 11:14 AM [employer] Inhaled Oxygen Concentration - - Weight 76.7 kg (169 lb) 04/16/2024 11:14 AM [employer] Height 149.9 cm (4' 11) 04/16/2024 11:14 AM [employer] Body Mass Index 34.13 04/16/2024 11:14 AM [employer] Plan of Treatment Health Maintenance Due Date Last Done Comments Depression Screening 1945 Hepatitis C Screening 1945 Osteoporosis Screening-Bone Density Scan 1945 DTaP/Tdap/Td Vaccine (1 - Tdap) 08/20/1958 Hepatitis B Screening 08/20/1965 Well Visit 65+ 08/20/2012 Zoster Vaccine (2 of 2) 07/13/2021 05/18/2021 Covid-19 Vaccine (2 - season) 01/08/202405/2020 Fall Risk Assessment 02/04/2024 02/03/2023 Pneumococcal vaccine 65+ Completed 03/29/2023, 12/2017 Influenza Vaccine Completed 04/02/2024, , 05/09/2017 Medical Devices Implanted Type Area Pipeline Controller Device Identifier Shelf Expiration Date Model / Serial / Lot Screw Screw Right: Toes Bottom Teeth Tooth Screw In Left Second Toe Left: Second Toe Insurance MEDICARE [facility] [address] [facility]ICARE [facility] MEDICARE [facility] Care Teams Organisation And Methods Analyst Relationship Specialty Start Date End Date Allie Arizmendi MD PCP - General Internal Medicine 05/08/19 Heath Padron MD [address] [address] Referring Physician Orthopedic Surgery 06/01/23
== END 2024-10-18 12:53 | disposition home or self-care (01) ==
LOC: ANHIMG 12:54
PROVIDERS: PCP Internal Medicine; Visit Provider Internal Medicine
DX: M85.89 Other specified disorders of bone density and structure, multiple sites (principal); Z78.0 Asymptomatic menopausal state
CPT/HCPCS: 77080

== ENCOUNTER 2024-10-24 11:33 | Outpatient (CLI) | payer MEDICARE, BC, SELFPAY ==
--- NOTE | ~2024-10-24 | US_ITS ---
Thyroid ultrasound. Clinical History: Multinodular goiter Findings: Real-time sonography of the thyroid gland was performed. The right lobe measures 4.1 x 1.9 x 1.7 cm. The left lobe measures 4.0 x 1.9 x 1.2 cm. The isthmus is 3 mm in AP diameter. There is a 6 mm hypoechoic nodule at the left midpole. There is a 6 mm hypoechoic nodule at the left mid to lower pole with dense peripheral eggshell calcification. There is a 1.7 x 1.4 x 1.6 cm hypoechoic solid nodule at the right midpole anteriorly. There is a 1.0 x 0.7 x 0.9 cm hyperechoic solid nodule at the right midpole more laterally. Suspected additional 1. 6 x 1.1 x 1.4 cm mildly hyperechoic nodule at the posterior right midpole. Impression: 1.7 cm TR-4 nodule in the right thyroid lobe, as above. FNA recommended to establish a histologic jasmeet gnosis. Additional TR-3 nodules in the right lobe measure 1.0 cm and 1.6 cm in size respectively.. Follow-up exam in one year advised for these TR-3 nodules. Reviewed, dictated and finalized at location . Impression: 1.7 cm TR-4 nodule in the right thyroid lobe, as above. FNA recommended to jono phillip a histologic diagnosis. Additional TR-3 nodules in the right lobe measure 1.0 cm and 1.6 cm in size res pectively.. Follow-up exam in one year advised for these TR-3 nodules.
== END 2024-10-24 11:34 | disposition home or self-care (01) ==
LOC: MICIMG 11:34
PROVIDERS: PCP Internal Medicine; Visit Provider Internal Medicine
DX: E04.2 Nontoxic multinodular goiter (principal)
CPT/HCPCS: 76536

== ENCOUNTER 2025-02-19 11:07 | Outpatient (CLI) | payer MEDICARE, BC, SELFPAY ==
--- OUTSIDE RECORDS SUMMARY | 2025-02-18 09:15 | XMS_ITS | Encounter Summary ---
Author Organization [facility] Address [address] [place] [address] Care Team Providers Care Banquet Bartender Name Role Phone Allie Arizmendi MD Primary Care Provider + Heath Padron MD Unavailable [phone] Reason for Visit * Reason Comments PT Progress Note * Physical Therapy (Routine) - Authorized Specialty Diagnoses / Procedures Referred By Contwhit t Referred To Contact Physical Therapy Diagnoses Other specified postprocedural states Contracture, unspecified hand Palmar fascial fibromatosis ([place]) [place] [id number] [address] Phone: tel: fax: [facility] [address] [place] [address] Phone: tel: fax: Referral ID Status Reason Start Date Expiration Date Visits Requested Visits Authorized [id number] Authorized Evaluate and Treat 12/27/2024 05/08/2025 23 15 Encounter Details Date Type Department Care Team (Late st Contact Info) Description 02/18/2025 9:15 AM CDT Therapy [facility] [address] [place] [address] Valentine Bar, PT [address] [address] Extensor tendon disruption (Primary Dx) Social History Tobacco Use Types Packs/Day Years [...] on file Legal Sex Female 6:58 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 Hand Physical Therapy Progress Note 02/18/2025 Beena Ortiz 1945 ICD-10-CM 1. Extensor tendon disruption M67.89 Therapy Diagnosis: Dupuytren's release of long and ring fingers and extensor tendon reconstruction Precautions: none Relevant Comorbidities: see chart Rn Float Services Utilized: NO Patient is identified by name and date of on this visit. Subjective: Pt reports that the MD was happy with her hand but wants her to continue therapy to get more motionand less scarring in her hand is poossible. Pain today is 0-4 /10. Small finger hurts to bend it all of the way. Changes since last visit include better fisting. Objective: Finger AROM MP PIP DIP MCARTHUR INDEX / / / LONG 25/90 0/90 0/55 210 RING 20/80 10/70 0/45 170 SMALL / / / EDEMA Long finger MPP 6.8 PIP 6.3 MMP 5.6 DIP 5.8 Ring finger MPP 6.8 PIP 6.3 MMP 5.4 DIP 5.1 Treatment Performed on This Visit: Manual Therapy (body part and techniques): milking massage Therapeutic Procedure/Exercise: Active/PROM MP, PIP and DIP motion Wrist ROM tenodesis Scar massage- manual and mini massager Modalities:hot pack to hand HEP given:Pt to bring her splint for night next visit to be straightened Assessment: Patient tolerated today's treatment well. She gained motion in her fingers. She is sensitive to pressure on her palmar scar and pain with passive motion on her small finger and ring fingers. Goals Addressed This Visit: STG. 3 Pt will improve finger motion by 15 degrees each finger by DC. LTG 2 Pt will be able to use her hand with 50% less sensitivity in her scar on her palm by DC Plan: Pt will be seen1-2 times a week for 8 weeks. If this is the last physical therapy visit, this note will serve as the discharge summary. Padmini Bar, PT,[facility] ATTENTION PHYSICIAN If you are unable to electronically sign this document, please print this document and sign below to certify this plan of care/treatment plan. By signing this document, I certify that I have reviewedthis plan of care and support the treatment. Please fax back to . Thank you. Provider Signature: Date: Provider Signature: Date: documented in this encounter Plan of Treatment Not on file documented as of this encounter Visit Diagnoses Diagnosis Extensor tendon disruption- Primary documented in this encounter Care Teams Banquet Bartender Relationship Specialty Start Date End Date Buckley, Allie Paige, MD PCP - General Internal Medicine 05/08/19 Heath Padron MD [address] [address] Referring Physician Orthopedic Surgery 06/01/23 documented as of this encounter
--- NOTE | ~2025-02-19 | MM_ITS ---
EXAMINATION: MM screening edmond BI w neal HISTORY: Screening TECHNIQUE: Craniocaudal and mediolateral oblique 3-D tomosynthesis images were obtained and synthetic 2-D images were generated. CAD analysis was submitted and interpreted. COMPARISON: 11/04/2022 BREAST PARENCHYMAL COMPOSITION: There are scattered areas of fibroglandular density. FINDINGS: There is no evidence of suspicious mass, calcification, or architectural distortion to suggest malignancy. There has been no suspicious interval change. IMPRESSION: 1. No mammographic evidence of malignancy. Recommend routine screening mammography in one year. BI-RADS Category 2: Benign finding(s) Reviewed, dictated and finalized at location Q. IMPRESSION: 1. No mammographic evidence of malignancy. Recommend routine screening mammogra phy in one year. BI-RADS Category 2: Benign finding(s)
--- OUTSIDE RECORDS SUMMARY | 2025-02-19 13:10 | XMS_ITS | Clinical Summary ---
Author Organization [facility] Address [place] [address] Care Team Providers Care Wax Coating Machine Tender Name Role Phone Allie Arizmendi MD Primary Care Provider [phone] Allergies No known active allergies Medications ondansetron [...] Comments Blood Pressure 127/76 03/16/2022 12:27 PM REAL ESTATE ASSET MANAGER Pulse 85 03/16/2022 12:27 PM REAL ESTATE ASSET MANAGER Temperature 36.7 C (98 F) 03/16/2022 12:27 PM REAL ESTATE ASSET MANAGER Respiratory Rate 18 04/28/2021 11:00 AM REAL ESTATE ASSET MANAGER Oxygen Saturation 96% 03/16/2022 12:27 PM REAL ESTATE ASSET MANAGER Inhaled Oxygen Concentration - - Weight 82.7 kg (182 lb 4.8 oz) 03/16/2022 12:27 PM REAL ESTATE ASSET MANAGER Height 152.4 cm (5') 03/16/2022 12:27 PM REAL ESTATE ASSET MANAGER Body Mass Index 35.6 03/16/2022 12:27 PM REAL ESTATE ASSET MANAGER Plan of Treatment Health Maintenance Due Date Last Done Comments Hepatitis C 08/20/1965 DTaP, Tdap and Td Vaccines (1 - Tdap) 08/20/1966 Annual Medicare Wellness Visit 08/20/2012 Dexa Scan (General) 08/20/2012 Zoster Vaccines (2 of 2) 05/08/2021 03/13/2021 RSV Immunization or 60+ Years (1 - 1-dose 75+ series) 08/20/2022 PHQ-2 (Physician Augustine) 05/09/2024 COVID-19 Vaccine (3 - season) 2025 07/21/2020, 06/27/2020 Influenza Adult (#1) 2025 03/10/2021, 01/31/2020, 03/29/2019, Additional history exists Pneumococcal Vaccine: 50+ Years Completed 01/31/2020, 07/14/2017 Meningococcal B Vaccine [...] James RN Medical Devices Implanted Type Area Resaw Operator Device Identifier Shelf Expiration Date Model / Serial / Lot Stent Ureteral [place] [employer] Contour 6fr X 20cm - [id number] Implanted:Qty : 1 on 04/20/2021 by Alessandro Lee MD at [facility] Stent Right: Ureter [employer] [id number] 08/26/2023 [id number] / [id number] Insurance MEDICARE Advance Directives * Full Code (Latest Code Status on File) Date Activated Date Inactivated Comments 04/20/2021 5:35 AM 04/21/2021 5:37 PM Care Teams Wax Coating Machine Tender Relationship Specialty Start Date End Date Allie Arizmendi MD PCP - General INTERNAL MEDICINE 04/17/21
--- OUTSIDE RECORDS SUMMARY | 2025-02-19 13:10 | XMS_ITS | Encounter Summary ---
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
--- OUTSIDE RECORDS SUMMARY | 2025-02-19 13:10 | XMS_ITS | Clinical Summary ---
Author Organization [facility] Address [address] [place] [address] Phone Care Team Providers Care Rice Drier Operator Name Role Phone Unavailable Primary Care Provider Unavailabl e Encounters Date Type Department Care Team Description 01/08/2025 External Device Data STL ABSTRACTION Provider, Abstract 12/26/2024 External Device Data STL ABSTRACTION Provider, Abstract 12/18/2024 External Device Data STL ABSTRACTION Provider, Abstract 12/18/2024 External Device Data STL ABSTRACTION Provider, Abstract 12/18/2024 External Device Data STL ABSTRACTION Provider, Abstract 12/14/2024 10:00 AM CDT - 12/14/2024 11:59 PM CDT Hospital Encounter [facility] Non Invasive Cardiology [address] [place] [address] Reji Flores MD Discharge Disposition: Home or Self Care from Last 3 Months Social History Tobacco Use Types Packs/Day Years Used Date Smoking Tobacco: Never Assessed Comments Unknown Sex and Gender Information Value Date Recorded Sex Assigned at Not on file Legal Sex Female 9:47 AM CDT Gender Identity Not on file Sexual Orientation Not on file Plan of Treatment Health Maintenance Due Date Last Done Comments DTAP/TDAP/TD VACCINES (1 - Tdap) 08/20/1966 PNEUMOCOCCAL VACCINE 50+ YEARS (1 of 2 - PCV) 08/20/18 69 OSTEOPOROSIS SCREENING 08/20/2012 ZOSTER VACCINE (2 of 2) 07/13/2021 05/18/2021 RSV VACCINE (60+ or ) (1 - 1-dose 75+ series) 08/20/2022 INFLUENZA VACCINE (#1) 2024 04/02/2024 COVID-19 Vaccine (2 - 2024- season) 01/07/202505/2020 Procedures Procedure Name Priority Date/Time Associated Diagnosis Comments EKG 12-LEAD Routine 12/14/2024 10:11 AM CDT from Last 3 Months Results * EKG 12-LEAD (12/14/2024 10:11 AM CDT) 12/14/2024 10:1 1 AM CDT Narrative INTERFACE SYSTEM - 12/14/2024 1:20 [place] [address] Test Date: 2024-12-14 Pat Name: BEENA ROBINERTON Department: 97 Room: Gender: Female Retail Salesworker: [id number] : 1945 Requested By: REJI FLORES Order Number: [id number] Reading : Walker Delgado Measurements Intervals [place] Rate: 80 P: 49 MA: 158 QRS: -24 QRSD: 82 T: 24 QT: 360 QTc: 415 Interpretive Statements Normal sinus rhythm Low voltage QRS Consider Inferior infarct, age undetermined Poor R wave progression No previous ECG available for comparison Electronically Signed On 12-14-2024 13:20:43 CDT by Walker Delgado Procedure Note Walker Delgado MD - 12/14/2024 [place] [address] Test Date: 2024-12-14 Pat Name: BEENA ROBINERTON Department: 97 Room: Gender: Female Retail Salesworker: [id number] : 1945 Requested By: REJI FLORES Order Number: [id number] Reading BE Delgado Measurements Intervals [place] Rate: 80 P: 49 MA: 158 QRS: -24 QRSD: 82 T: 24 QT: 360 QTc: 415 Interpretive Statements Normal sinus rhythm Low voltage QRS Consider Inferior infarct, age undetermined Poor R wave progression No previous ECG available for comparison Electronically Signed On 12-14-2024 13:20:43 CDT by Walker Delgado us Reji Flores MD ECG ORDERABLES Final Result INTERFACE SYSTEM Refer to clinic/hospital department from Last [address] [place] [id number] MEDICARE PART A AND B [facility]
--- OUTSIDE RECORDS SUMMARY | 2025-02-19 13:10 | XMS_ITS | Clinical Summary ---
Author Organization [facility] Address [facility] [place] [address] Care Team Providers Care Social Media Marketing Manager Name Role Phone Allie Arizmendi MD Primary Care Provider + Heath Padron MD Unavailable [phone] Allergies No known active allergies Medications atorvastatin [...] mg total) by mouth daily Active vitamins A,C,W-rehs-usnbzl 7,160-113-100 skni-jp-whsv tablet,delayed release (DR/EC) Take by mouth. Active [...] Administer into affected eye(s) 07/11/19 24 Active vypmrtokiiur-G6-quN 12-algal oil (Metanx, algal oil,) 3 mg-35 mg-2 mg -90.314 mg capsule Take by mouth 07/11/19 24 Active white petrolatum-mineral oiL ointment apply to both eyes at bedtime as needed 09/29/19 24 Active vit C-E-zinc nk-mbhn-klo-zeax (ICaps AREDS2) 250 mg-200 unit -12.5 mg-1 [...] (11/23/2021): Added automatically from request for surgery [id number] Atherosclerosis of aorta 09/07/2021 Kidney stone 04/20/2021 Prediabetes 03/10/2021 Dysphagia 07/31/2020 Gastroesophageal reflux disease 07/31/2020 Mild intermittent asthma 01/31/2020 Palpitations 05/08/2019 Benign essential hypertension 03/29/2019 Hyperlipidemia 03/29/2019 Major depression in partial remission 03/29/2019 Encounters Date Type Department Care Team Description 02/18/2025 9:15 AM CDT Therapy [facility] [address] [place] [address] Valentine Bar, PT Extensor tendon disruption (Primary Dx) 02/18/2025 Plan of Care Documentation [facility] [address] [place] [address] 02/04/2025 12:45 PM CDT Therapy [facility] [address] [place] [address] Valentine Bar, PT Extensor tendon disruption (Primary Dx) 01/28/2025 12:45 PM CDT Therapy [facility] [address] [place] [address] Valentine Bar, PT Extensor tendon disruption (Primary Dx) 01/21/2025 12:45 PM CDT Therapy [facility] [address] [place] [address] Valentine Bar, PT Extensor tendon disruption (Primary Dx) 01/14/2025 12:45 PM CDT Therapy [facility] [address] [place] [address] Valentine Bar, PT Extensor tendon disruption (Primary Dx) 01/08/2025 4:00 PM CDT Therapy [facility] [address] [place] [address] Valentine Bar, PT Extensor tendon disruption (Primary Dx) 01/03/2025 Plan of Care Documentation [facility] [address] [place] [address] 01/01/2025 1:45 PM CDT Therapy [facility] [address] [place] [address] Valentine Bar, PT Extensor tendon disruption (Primary Dx) from Last 3 Months Surgical [...] hernia repair d/t nicked nerve Diabetes mellitus Kidney stone 2020 Family History Medical History [...] on file Legal Sex Female 6:58 PM ASSESSMENT 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 Gender Identity Not on file Sexual Orientation Not on file Obstetrics History Last Filed Vital Signs Vital Sign Reading Time Taken Comments Blood Pressure 102/68 04/16/2024 11:14 AM ASSESSMENT TECHNICIAN Pulse 78 04/16/2024 11:14 AM ASSESSMENT TECHNICIAN Temperature 36.3 C (97.4 F) 02/03/2023 7:45 AM CDT Respiratory Rate 20 02/03/2023 8:05 AM CDT Oxygen Saturation 95% 04/16/2024 11:14 AM ASSESSMENT TECHNICIAN Inhaled Oxygen Concentration - - Weight 76.7 kg (169 lb) 04/16/2024 11:14 AM ASSESSMENT TECHNICIAN Height 149.9 cm (4' 11) 04/16/2024 11:14 AM ASSESSMENT TECHNICIAN Body Mass Index 34.13 04/16/2024 11:14 AM ASSESSMENT TECHNICIAN Plan of Treatment Health Maintenance Due Date Last Done Comments Depression Screening 1945 Hepatitis C Screening 1945 Osteoporosis Screening-Bone Density Scan 1945 DTaP/Tdap/Td Vaccine (1 - Tdap) 08/20/1958 Hepatitis B Screening 08/20/1965 Well Visit 65+ 08/20/2012 Pneumococcal vaccine 65+ (2 of 2 - PPSV23, PCV20, or PCV21) 09/08/2017 07/14/2017 Zoster Vaccine (2 of 2) 07/13/2021 05/18/2021 Fall Risk Assessment 02/04/2024 02/03/2023 Covid-19 Vaccine (2 - season) 01/07/202505/2020 Influenza Vaccine (#1) 2025 , 03/29/2019, 05/09/2017 Medical Devices Implanted Type Area Data Migration Lead Device Identifier Shelf Expiration Date Model / Serial / Lot Screw Screw Right: Toes Bottom Teeth Tooth Screw In Left Second Toe Left: Second Toe Insurance MEDICARE [facility] [place] [address] MEDICARE [place] [address] [place] [phone] MEDICARE [facility] Care Teams Social Media Marketing Manager Relationship Specialty Start Date End Date Allie Arizmendi MD PCP - General Internal Medicine 05/08/19 Heath Padron MD [address] [address] Referring Physician Orthopedic Surgery 06/01/23
== END 2025-02-19 11:08 | disposition home or self-care (01) ==
LOC: ANHFOHIMG 11:09
PROVIDERS: PCP Internal Medicine; Visit Provider Internal Medicine
DX: Z12.31 Encounter for screening mammogram for malignant neoplasm of breast (principal)
CPT/HCPCS: 77063; 77067